=== PATIENT | female | born 1970 | race Caucasian/White ===

== ENCOUNTER → 2019-09-28 10:06 | Outpatient (CLI) | payer OTHER, SELFPAY ==
--- NOTE | ~2019-09-28 | MM_ITS ---
EXAMINATION: MM screening li BI w li HISTORY: Screening mammogram TECHNIQUE: Craniocaudal and mediolateral oblique 3-D tomosynthesis images were obtained and synthetic 2-D images were generated. CAD analysis was submitted and interpreted. COMPARISON: Comparison to multiple prior studies sequentially, with oldest reviewed study dated 11/2013. BREAST PARENCHYMAL COMPOSITION: There are scattered areas of fibroglandular density. FINDINGS: There is no evidence of suspicious mass, calcification, or architectural distortion to sugg est malignancy in either breast. There has been no suspicious interval change. IMPRESSION: 1. No mammographic evidence of malignancy. 2. Recommend routine screening mammography in one year. BI-RADS Category 1: Negative Reviewed, dictated and finalized at location A.
== END ==
PROVIDERS: Visit Provider Obstetrics & Gynecology
DX: Z12.31 Encounter for screening mammogram for malignant neoplasm of breast (principal)
CPT/HCPCS: 77063; 77067

== ENCOUNTER → 2020-09-29 15:46 | Outpatient (CLI) | payer BC, SELFPAY ==
--- NOTE | ~2020-09-29 | MM_ITS ---
EXAMINATION: MM screening li BI w li HISTORY: Screening TECHNIQUE: Craniocaudal and mediolateral oblique 3-D tomosynthesis images were obtained and synthetic 2-D images were generated. CAD analysis was submitted and interpreted. COMPARISON: 07/13/2014 BREAST PARENCHYMAL COMPOSITION: There are scattered areas of fibroglandular density. FINDINGS: There is no evidence of suspicious mass, calcification, or architectural distortion to sugg est malignancy in either breast. There has been no suspicious interval change. IMPRESSION: 1. No mammographic evidence of malignancy. 2. Recommend routine screening mammography in one year. BI-RADS Category 1: Negative Reviewed, dictated and finalized at location A.
== END ==
PROVIDERS: PCP Internal Medicine; Visit Provider Obstetrics & Gynecology
DX: Z12.31 Encounter for screening mammogram for malignant neoplasm of breast (principal)
CPT/HCPCS: 77063; 77067

== ENCOUNTER → 2021-11-17 15:40 | Outpatient (CLI) | payer BC, SELFPAY ==
--- NOTE | ~2021-11-17 | MM_ITS ---
EXAMINATION: MM screening li BI w li HISTORY: Screening mammogram TECHNIQUE: Craniocaudal and mediolateral oblique 3-D tomosynthesis images were obtained and synthetic 2-D images were generated. CAD analysis was submitted and interpreted. COMPARISON: 09/29/2020, 09/28/2019, 09/24/2018 bilateral screening mammogram examinations BREAST PARENCHYMAL COMPOSITION: There are scattered areas of fibroglandular density. FINDINGS: There is no evidence of suspicious mass, calcification, or architectural distortion to sugg est malignancy in either breast. There has been no suspicious interval change. IMPRESSION: 1. No mammographic evidence of malignancy. 2. Recommend routine screening mammography in one year. BI-RADS Category 1: Negative Reviewed, dictated and finalized at location A.
== END ==
PROVIDERS: PCP Obstetrics & Gynecology; Visit Provider Obstetrics & Gynecology
DX: Z12.31 Encounter for screening mammogram for malignant neoplasm of breast (principal)
CPT/HCPCS: 77063; 77067

== ENCOUNTER 2022-04-03 07:31 | Day surgery (SDC) | payer BC, SELFPAY ==
[2022-03-19 13:18] VITALS: BMI 36.6
[2022-04-03 07:44] VITALS: BP 156/73; PULSE 78; RESP 19; TEMP 36.3; O2SAT 96
--- NOTE | 2022-04-03 07:56 | PM.HPGS ---
History of Present Illness History of Present Illness Consent: Risks, benefits, and alternatives have been discussed and questions answered. Patient agrees to proceed with procedure. Chief complaint: Hx of Colon Polyp Narrative: Taylor Garcia is a 51 year old female Previously followed by Dr. Park. Patient presents for follow-up colonoscopy. Patient has a history of adenomatous colon polyps removed from the colon 2012. In 2016 patient had hyperplastic colon polyps. In 2019 had severe diverticulitis and partial colon resection accomplished at that time. Patient presents today for surveillance colonoscopy because of history of colon polyps. Patient reports that her current weight appetite and bowel movements are normal. Patient denies abdominal pain. She has had no bleeding. Family history Uncertain. Patient's mother may have had colon polyps. Review of Systems Review of Systems: Review of systems noncontributory. [facility] Past Medical History Medical History (Updated 04/03/22 @ 07:59 by Rahul Louis MD) Asthma GERD (gastroesophageal reflux disease) High cholesterol Hypertension Surgical History Surgical History (Updated 04/03/22 @ 07:59 by Rahul Louis MD) H/O colectomy sigmoid colectomy 2018 H/O: hysterectomy History of ankle surgery fusion October 2020 History of removal of ovarian cyst S/P thyroid biopsy thyroid nodule Tibia fracture fracture repair right tibia Family History Family History Father Family history of cardiovascular disease Malignant neoplasm of prostate Family history of emphysema Hypertension Mother Family history of cardiovascular disease Grandparent Family history of lung cancer Acute myocardial infarction Social History Social History Smoking packs per day: 1 Smoking cigarettes per day: 20.0 Years smoked: 20 Smoking pack-years: 20.00 Smoking status: Former smoker Tobacco type: cigarettes Smoking end date: 04/01/17 Alcohol intake: current Drinks per week: 5 Alcohol use details: socially Substance use type: does not use Living arrangements: with family 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: [employer] Spiritual care concerns: No Meds Home Medications and Allergies Home Medications Medication Instructions Recorded Confirmed Type albuterol sulfate 90 mcg/actuation 1 puff inhalation Q4H PRN 04/13/21 03/19/22 History aerosol inhaler (ProAir HFA) Shortness Of Breath Or Wheezing carvedilol 12.5 mg tablet 12.5 mg PO Q12H 04/13/21 03/19/22 History escitalopram oxalate 10 mg tablet 10 mg PO DAILY 04/13/21 03/19/22 History mecobalamin (vitamin B12) 1,000 1,000 mcg PO DAILY 04/13/21 03/19/22 History mcg chewable tablet Allergies Allergy/AdvReac Type Severity Reaction Status Date / Time Penicillins Allergy Unknown Skin Verified 04/03/22 07:43 irritation Vital Signs Vital Signs - 24 hr 04/03/22 07:44 Temperature 97.4 F L Pulse Rate 78 Respiratory Rate 19 Blood Pressure 156/73 H Pulse Oximetry 96 Oxygen Delivery Room Air Exam Narrative: Physical exam reveals patient to be alert. Vital signs stable. HEENT exam is unremarkable. Patient is anicteric. Lungs are clear to auscultation and percussion. Heart is without murmur or extra sounds. Abdomen bowel sounds are present soft nontender with no organomegaly. Digital external rectal exam is normal. Assessment and Plan Assessment and plan (1) History of colon polyps: Code(s): Z86.010 - Personal history of colonic polyps Status: Acute Assessment and Plan: Patient has a distant history of colon polyps 10 years ago. In the interval she has had colon resection for diverticulitis. Plan for surveillance colonoscopy now. Further recommendations will be given after endoscopy. She may b
[2022-04-03] MEDS: LACTATED RINGERS 1,000 ML 150 ML IV CONT (07:57)
--- NOTE | 2022-04-03 08:23 | WPDANESEPPF ---
Anes - Initial Pre Proc Eval Procedure: Operation Date: 04/03/22 09:00 Proposed Procedures p Screening Colonoscopy - Rahul Louis MD Date/Time: 04/03/22 08:23 Surgeon: Rahul Louis MD Pre Op Diagnosis: Hx of Colon Polyp Patient Data Age: 51 Gender: F Height: 1.57 m Weight: 86 kg Last Vital Signs Temp 97.4 F L 04/03/22 07:44 Pulse 78 04/03/22 07:44 Resp 19 04/03/22 07:44 BP 156/73 H 04/03/22 07:44 Pulse Ox 96 04/03/22 07:44 O2 Del Method Room Air 04/03/22 07:44 Allergies Allergy/AdvReac Type Severity Reaction Status Date / Time Penicillins Allergy Unknown Skin Verified 04/03/22 07:43 irritation Home Medications Medication Instructions Recorded Confirmed Type albuterol sulfate 90 mcg/actuation 1 puff inhalation Q4H PRN 04/13/21 03/19/22 History aerosol inhaler (ProAir HFA) Shortness Of Breath Or Wheezing carvedilol 12.5 mg tablet 12.5 mg PO Q12H 04/13/21 03/19/22 History escitalopram oxalate 10 mg tablet 10 mg PO DAILY 04/13/21 03/19/22 History mecobalamin (vitamin B12) 1,000 1,000 mcg PO DAILY 04/13/21 03/19/22 History mcg chewable tablet Patient hx anesthesia problems: none Family hx anesthesia problems: none Results Review: All pre-operative results and documents have been reviewed as part of the pre-operative evaluation. [facility] Past Medical History Medical History (Updated 04/03/22 @ 07:59 by Rahul Louis MD) Asthma GERD (gastroesophageal reflux disease) High cholesterol Hypertension Surgical History Surgical History (Updated 04/03/22 @ 07:59 by Rahul Louis MD) H/O colectomy sigmoid colectomy 2018 H/O: hysterectomy History of ankle surgery fusion October 2020 History of removal of ovarian cyst S/P thyroid biopsy thyroid nodule Tibia fracture fracture repair right tibia Family History Family History Father Family history of cardiovascular disease Malignant neoplasm of prostate Family history of emphysema Hypertension Mother Family history of cardiovascular disease Grandparent Family history of lung cancer Acute myocardial infarction Social History Social History Smoking packs per day: 1 Smoking cigarettes per day: 20.0 Years smoked: 20 Smoking pack-years: 20.00 Smoking status: Former smoker Tobacco type: cigarettes Smoking end date: 04/01/17 Alcohol intake: current Drinks per week: 5 Alcohol use details: socially Substance use type: does not use Living arrangements: with family 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 Informed Consent: The patient's anesthetic plan and its attendant risks and benefits were discussed with the patient/family/POA. Questions were solicited and answers provided to the satisfaction of the patient/family/POA.
[2022-04-03 09:18] VITALS: BP 103/55; PULSE 74; RESP 22; O2SAT 96
[2022-04-03 09:28] VITALS: BP 108/64; PULSE 69; RESP 21; O2SAT 96
[2022-04-03 09:38] VITALS: BP 125/68; PULSE 71; RESP 17; O2SAT 97
== END 2022-04-03 09:46 | disposition home or self-care (01) ==
PROVIDERS: PCP Internal Medicine; Referring Provider Obstetrics & Gynecology; Visit Provider Internal Medicine Gastroenterology
PROC: 0DJD8ZZ Inspection of Lower Intestinal Tract, Via Natural or Artificial Opening Endoscopic (ICD-10-PCS; CPT 45378; principal; 2022-04-03 09:00)
DX: Z12.11 Encounter for screening for malignant neoplasm of colon (principal); D12.2 Benign neoplasm of ascending colon; K64.8 Other hemorrhoids; K57.30 Diverticulosis of large intestine without perforation or abscess without bleeding; J45.909 Unspecified asthma, uncomplicated; I10 Essential (primary) hypertension; Z79.51 Long term (current) use of inhaled steroids; Z90.49 Acquired absence of other specified parts of digestive tract; Z87.891 Personal history of nicotine dependence; E66.9 Obesity, unspecified; Z68.34 Body mass index [BMI] 34.0-34.9, adult; Z87.19 Personal history of other diseases of the digestive system
CPT/HCPCS: 45380; 88305; J2704; J7120

== ENCOUNTER → 2023-01-02 15:14 | Outpatient (CLI) | payer BC, SELFPAY ==
--- NOTE | ~2023-01-02 | MM_ITS ---
EXAMINATION: MM screening [facility] BI w li HISTORY: Screening mammogram TECHNIQUE: Craniocaudal and mediolateral oblique 3-D tomosynthesis images were obtained and synthetic 2-D images were generated. CAD analysis was submitted and interpreted. COMPARISON: 11/17/2021, 09/29/2020, 09/28/2019 BREAST PARENCHYMAL COMPOSITION: There are scattered areas of fibroglandular density. FINDINGS: No suspicious mass, calcification, or architectural distortion are identified in either portia ast to suggest malignancy. There has been no suspicious interval change. IMPRESSION: 1. No mammographic evidence of malignancy. 2. Recommend routine screening mammography in one year. BI-RADS Category 1: Negative Reviewed, dictated and finalized at location A.
== END ==
PROVIDERS: PCP Obstetrics & Gynecology; Visit Provider Obstetrics & Gynecology
DX: Z12.31 Encounter for screening mammogram for malignant neoplasm of breast (principal)
CPT/HCPCS: 77063; 77067

== ENCOUNTER 2023-12-17 10:32 | Outpatient (CLI) | payer OTHER, SELFPAY ==
--- NOTE | ~2023-12-17 | CT_ITS ---
EXAMINATION: CT lung screening DATE: 12/17/2023 10:48 INDICATION: HX OF NICOTINE DEPENDENCE TECHNIQUE: Computed tomography (CT) of the chest was performed without intravenous contrast. Addition al 3D reconstructions utilizing coronal maximum intensity projection (MIP) were performed. Automated exposure control and iterative reconstruction technique were employed. The dose-length product was 10 3.27 mGy-cm. COMPARISON: None FINDINGS: There are few small calcified nodules at the bilateral lung bases along with calcified bilateral anel r and mediastinal lymph nodes consistent with old granulomatous disease. One-2 mm nodule, not clearly calcified at the right apex. No pneumonia, pulmonary edema, pleural effusion or pneumothorax. Heart size is normal. Small amount of atherosclerotic coronary artery calcific lesion. No pericardial effus ion. Thoracic aorta is normal in caliber. No pathologically enlarged thoracic lymphadenopathy. Likely benign subcentimeter calcified nodule at the right thyroid lobe. Mild upper thoracic levocurvature w ith mild spondylosis. 7.2 cm cyst in the right hepatic lobe. IMPRESSION: 1. Lung-RADS category 2: Benign appearance or behavior. Continue annual screening with noncontrast lo w-dose chest CT in 12 months. Reviewed, dictated and finalized at location B. IMPRESSION: 1. Lung-RADS category 2: Benign appearance or behavior. Continue annual screeni ng with noncontrast low-dose chest CT in 12 months.
== END 2023-12-17 10:33 | disposition home or self-care (01) ==
LOC: MICIMG 10:32
PROVIDERS: PCP Internal Medicine; Visit Provider Internal Medicine
DX: Z12.2 Encounter for screening for malignant neoplasm of respiratory organs (principal); Z87.891 Personal history of nicotine dependence
CPT/HCPCS: 71271

== ENCOUNTER 2024-02-29 08:27 | Outpatient (CLI) | payer OTHER, SELFPAY ==
--- NOTE | ~2024-02-29 | MM_ITS ---
EXAMINATION: MM screening li BI w li HISTORY: Screening TECHNIQUE: Craniocaudal and mediolateral oblique 3-D tomosynthesis images were obtained and synthetic 2-D images were generated. CAD analysis was submitted and interpreted. COMPARISON: Comparison to multiple prior studies sequentially, with oldest reviewed study dated 10/2017. BREAST PARENCHYMAL COMPOSITION: Not dense: There are scattered areas of fibroglandular density. FINDINGS: There is no evidence of suspicious mass, calcification, or architectural distortion to sugg est malignancy in either breast. There has been no suspicious interval change. IMPRESSION: 1. No mammographic evidence of malignancy. 2. Recommend routine screening mammography in one year. BI-RADS Category 1: Negative Reviewed, dictated and finalized at location [] [facility]
== END 2024-02-29 08:28 | disposition home or self-care (01) ==
LOC: MICIMG 08:28
PROVIDERS: PCP Obstetrics & Gynecology; Visit Provider Obstetrics & Gynecology
DX: Z12.31 Encounter for screening mammogram for malignant neoplasm of breast (principal)
CPT/HCPCS: 77063; 77067

== ENCOUNTER 2024-03-26 14:07 | Outpatient (CLI) | payer OTHER, SELFPAY ==
--- NOTE | ~2024-03-26 | XR_ITS ---
XR chest 2V Ordering provider: Marla Riggins MD History: 53 years Female with . dyspnea for 7 days . Comparison: None. FINDINGS: MEDIASTINUM: The cardiac silhouette is not enlarged. LUNGS: No infiltrates, effusions or pneumothorax. OTHER: No free air under the diaphragm. IMPRESSION: No acute cardiopulmonary pathology. Reviewed, dictated and finalized at location A. PER MAKER
[2024-03-26 14:29] LABS: Basophils Absolute Auto 0.09 K/mm3 (0.00-0.10); Basophils Percent Auto 0.9 % (0.0-1.0); Eosinophils Absolute Auto 0.22 K/mm3 (0.02-0.50); Eosinophils Percent Auto 2.2 % (1.0-6.0); Hematocrit 39.5 % (35.0-49.0); Hemoglobin 13.5 g/dL (12.0-15.0); Immature Granulocyte Absolute 0.03 K/mm3 (0.00-0.00); Immature Granulocyte Percent A 0.3 % (0.0-0.0); Lymphocytes Absolute Auto 2.83 K/mm3 (1.10-4.50); Lymphocytes Percent Auto 28.5 % (18.0-42.0); Mean Corpuscular HGB Conc 34.2 g/dL (32-36); Mean Corpuscular Hemoglobin 32.9 pg (27.0-31.0); Mean Corpuscular Volume 96.3 fL (78.0-102.0); Mean Platelet Volume 9.1 fl (9.2-11.8); Monocytes Absolute Auto 0.79 K/mm3 (0.10-0.90); Neutrophils Absolute Auto 5.96 K/mm3 (1.70-7.20); Neutrophils Percent Auto 60.1 % (50.0-70.0); Platelet Count Result 322 K/mm3 (150-420); Red Cell Distribution Width 13.2 % (11.6-14.4); White Blood Count 9.9 K/mm3 (4.8-10.8)
[2024-03-26 14:45] LABS: D Dimer 0.38 mg/L (0.19-0.50)
[2024-03-26 14:59] LABS: Chloride 94 mmol/L (98-108); Estimated Glomerular Filt Rate > 60; NT Pro B Type Natriuretic Pept < 5 pg/mL (0-125); Potassium 4.3 mmol/L (3.5-5.1); Sodium 139 mmol/L (136-145)
[2024-03-26 15:04] LABS: Anion Gap 12 mmol/L (4-12); Blood Urea Nitrogen 17 mg/dL (7-18); Calcium 10.4 mg/dL (8.5-10.1); Carbon Dioxide 33 mmol/L (21-32); Glucose 105 mg/dL (70-99); Osmolality Calculated 289 mOsm/kg (285-295)
== END 2024-03-26 14:08 | disposition home or self-care (01) ==
LOC: CHSLAB 14:10
PROVIDERS: PCP Internal Medicine; Visit Provider Internal Medicine
DX: R06.00 Dyspnea, unspecified (principal)
CPT/HCPCS: 36415; 71046; 80048; 83880; 85025; 85380

== ENCOUNTER 2024-04-07 10:11 | Outpatient (CLI) | payer OTHER, SELFPAY ==
--- OUTSIDE RECORDS SUMMARY | 2024-04-14 04:40 | XMS_ITS | Clinical Summary ---
Author Organization [facility] Address [address] [place] [address] Care Team Providers Care Liability Claims Representative Name Role Phone Marla Riggins MD Primary Care Provider [phone] [facility],non-owned Affiliates and Associated Physician Practices is amultiple site organization consisting of ambulatory clinics and hospital sitesin [place], [place], [place] and [place]. This disclosure is being madepursuant to the Care Everywhere program and may not contain all information available regarding this patient. Last updated 17.[facility] Allergies Active Allergy Reactions Criticality Noted Date Comments Penicillins Rash Medium 08/30/2016 Reaction: Rash, Medications * Be aware that medications may not be up to date on this document. Alwaysverify current medications with the patient. Medication Sig Dispensed Refills Start Date End Date Status escitalopram (LEXAPRO) 10 MG tablet Take 10 mg by mouth once daily Active losartan - hydroCHLOROthiazide (HYZAAR) 50-12.5 MG tablet Take 1 tablet by mouth once daily Active aspirin (ASPIRIN ADULT) 325 MG tablet Take 1 (one) tablet by mouth 2 times daily 60 tablet 11/03/2020 Active albuterol HFA (PROVENTIL;VENTOLIN;PROAI R) 108 (90 Base) MCG/ACT inhaler Inhale 2 puffs by mouth every 6 hours as needed 11/24/2020 Active carvedilol (COREG) 12.5 MG tablet Take 12.5 mg by mouth 2 times daily with morning and evening meal 12/30/2020 Active BREO ELLIPTA 100-25 MCG/INH inhaler Inhale 1 puff by mouth once daily 12/30/2020 Active Active Problems Problem Noted Date Diagnosed Date 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 ( we do not have access yet to the images or CT reports) Pt will send it to us . No indications for antibiotics currently Cellulitis 02/24/2018 Overview (07/20/2020): Last Assessment & Plan: Clinically resolved. No erythema or tennderness or skin lesions visible. She has had 2 courses of oral antibitoics She is at risk of recurrent cellulitis over the right LE in view of altered anatomy\ Advised preventative measures Monitor off antibiotics Transaminitis 02/24/2018 Overview (07/20/2020): Last Assessment & Plan: likley secondary to alcohol use. Advised to alert PMD and monitor Trigger finger of right thumb 02/28/2016 Trigger finger of left thumb 02/28/2016 Cubital tunnel syndrome 03/14/2015 Right leg pain Immunizations Name Administration Dates Next Due Covid Lucibel primary monoval ent 12+ yr 0.3mL Purple cap 07/04/2020,06/12/2020 Social History Tobacco Use Types Packs/Day Years Used Date Smoking Tobacco: Former Cigarettes 0 07/20/1992 - 07/20/2017 Smokeless Tobacco: Never Alcohol Use Standard Drinks/Week Comments Yes 21 (1 standard drink = 0.6 oz pu re alcohol) 3-4 drinks of Rum daily Sex and Gender Information Value Date Recorded Sex Assigned at Not on file Gender Identity Not on file Sexual Orientation Not on file Last Filed Vital Signs Vital Sign Reading Time Taken Comments Blood Pressure 127/89 11/05/2020 7:51 AM CDT Pulse 84 11/05/2020 7:51 AM CDT Temperature 36.6 ??C (97.8 ??F) 11/05/2020 7:51 AM CD T Respiratory Rate 20 11/05/2020 7:51 AM CDT Oxygen Saturation 97% 11/05/2020 7:51 AM CDT Inhaled Oxygen Concentration - - Weight 85.7 kg (189 lb) 01/31/2021 8:54 AM CDT Height 157.5 cm (5' 2 ) 11/21/2020 4:24 PM CDT Body Mass Index 34.57 11/21/2020 4:24 PM CDT Plan of Treatment Health Maintenance Due Date Last Done Comments COLOGUARD (AGES 45-75) - COL ON CA SCREENING 1968 COLON MONITORING 1968 COLONOSCOPY - COLON CA SCREENING 1968 CT COLONOGRAPHY - COLON CA SCREENING 1968 Colorectal Cancer Screening 1968 FIT - COLON CA SCREENING 1968 FLEX SIG - COLON CA SCREENING 1968 LIPID TESTING 1968 MAMMOGRAM 1968 PAP SMEAR 1968 HIV SCREENING 1983 HEPATITIS C SCREENING 05/25/1986 DTAP/TDAP/TD VACCINES (1 - Tdap) 1987 HEPATITIS B VACCINE (1 of 3 - 19+ 3-dose series) 1987 ZOSTER VACCINE (1 of 2) 2018 DEPRESSION SCREENING 04/01/2023 SCREENING FOR DIABETES 11/04/2023 , 11/02/2020 COVID-19 VACCINE (3 - 2023-2 5 season) 2023 07/04/2020, 06/12/2020 INFLUENZA VACCINE (#1) 2023 HIB VACCINE Aged Out No longer eligi ble based on patient's age to complete this topic HPV VACCINE Aged Out No longer eligi ble based on patient's age to complete this topic MENINGOCOCCAL VACCINE Aged Out No sergo xin eligible based on patient's age to complete this topic PNEUMOCOCCAL VACCINE Aged Out No long er eligible based on patient's age to complete this topic Goals Goal Patient Goal Type Associated Problems Recent Progress Patient-Stated? Author Mobility General Improving(05/2020 8:55 AM CDT) Keely Yanez RN Note: Expected end date: 03/31/21 The goal is to maintain or improve your mobility at the optimum level for you. Interventions: PT exercises Medical Devices Implanted Type Area Rotor Balancer Device Identifier Shelf Expiration Date Model / Serial / Lot Screw 6.5mm 7.9mm 2.9mm 85mm Ft Rvrs Cut Implanted:Qty: 1 on 11/02/2020 by Jeremy Frye DO at [facility] Right: Ankle [employer] [id number] / / Screw 6.5mm 7.9mm 2.9mm 70mm Ft Rvrs Cut Implanted:Qty: 1 on 11/02/2020 by Jeremy Frye DO at [facility] Right: Ankle [employer] [id number] / / Explanted Type Area Rotor Balancer Device Identifier Shelf Expiration Date Model / Serial / Lot Wire [id number] .062in 6in Fx 2 Troc Explanted:Qty: 2 on 11/02/2020 by Jeremy Frye DO at [facility] Right: Foot [employer] 07/25/2024 [id number] / / [id number] Screw 6.5mm 7.9mm 2.9mm 90mm Ft Rvrs Cut Explanted:Qty: 1 on 11/02/2020 by Jeremy Frye DO at [facility] Right: Ankle [employer] [id number] / / Procedures Procedure Name Priority Date/Time Associated Diagnosis Comments BASIC METABOLIC PANEL (CALCIUM TOTAL) AM Draw 11/03/2020 2:11 AM CDT Arthritis of right ankle from Last 3 Months or Most Recently Relevant to Health Maintenance Results * (ABNORMAL) BASIC METABOLIC PANEL (CALCIUM TOTAL) (11/03/2020 2:11 AM CDT) BUN 23 7 - 26 mg/dL 11/03/2020 3:30 AM CDT [facility] Creatinine 0.98(H) 0.56 - 0.96 mg/dL 11/03/2020 3:30 AM [facility] Comment:Confirmed by repeat analysis. Sodium 135(L) 136 - 145 mmol/L 11/03/2020 3:30 AM [facility] Potassium 4.4 3.5 - 4.5 mmol/L 11/03/2020 3:30 AM [facility] Chloride 98 98 - 107 mmol/L 11/03/2020 3:30 AM [facility] CO2 24 22 - 29 mmol/L 11/03/2020 3:30 AM [facility] Glucose 177(H) 70 - 115 mg/dL 11/03/2020 3:30 AM [facility] Calcium 8.6 8.4 - 10.2 mg/dL 11/03/2020 3:30 AM [facility] Anion Gap 17 8 - 18 11/03/2020 3:30 AM [facility] BUN/Creatinine Ratio 23 7 - 23 11/03/2020 3:30 AM [facility] Osmolality Calculated 288 270 - 300 mOsm/kg 11/03/2020 3:30 AM [facility] eGFR by CKD-EPI 66(L) >=90 mL/min/1.7 3 m2 11/03/2020 3:30 AM [facility] Blood BLOOD SPECIMEN / Unknown Lab Venipuncture / Unknown 11/03/2020 2:11 AM CDT 11/03/2020 2:45 AM CDT Jeremy Frye DO LAB - CHEMISTRY [facility] [address] [place] [address], [facility] [phone] from Last 3 Months or Most Recently Relevant to Health Maintenance Advance Directives * Full Code (Latest Code Status on File) Date Activated Date Inactivated Comments 11/02/2020 2:20 PM 11/05/2020 12:47 PM * Full Code Date Activated Date Inactivated Comments 11/02/2020 7:17 AM 11/02/2020 2:20 PM * Full Code Date Activated Date Inactivated Comments 11/02/2020 7:17 AM 11/02/2020 7:17 AM Care Teams Liability Claims Representative Relationship Specialty Start Date End Date Marla Riggins MD PCP - General Internal Medicine 08/15/20
--- OUTSIDE RECORDS SUMMARY | 2024-04-14 04:40 | XMS_ITS | Referral Summary ---
Author Organization [facility] Address [address] [place] [address] Care Team Providers Care Deck Worker Name Role Phone Marla Riggins MD Primary Care Provider [phone] Source Comments [facility],non-owned Affiliates and Associated Physician Practices is amultiple site organization consisting of ambulatory clinics and hospital sitesin [place], [place], [place] and [place]. This disclosure is being madepursuant to the Care Everywhere program and may not contain all information available regarding this patient. Last updated 17.[facility] Allergies Active Allergy Reactions Criticality Noted Date [...] Immunizations Name Administration Dates Next Due Covid SmartMenuCard primary monoval ent 12+ yr 0.3mL Purple [...] Mass Index 34.57 11/21/2020 4:24 PM CDT Functional Status Functional Status Response Date of Assess ment Is person deaf or have serious hearing difficult y? No 11/02/2020 Is person blind or have serious difficulty seein g? No 11/02/2020 Does person have serious dif ficulty walking/climbing stairs? No 11/02/2020 Does person have difficulty dressing/bathing? No 11/02/2020 Does person have difficulty doing errands alone? No 11/02/2020 Cognitive Status Response Date of Assessm ent Does person have difficulty concentrating/remembering/making decisions? No 11/02/2020 Plan of Treatment Not on file Goals Goal Patient Goal Type Associated Problems Recent Progress Patient-Stated? Author Mobility General Improving(05/2020 8:55 AM CDT) No Keely Cole RN Note: Expected end date: 03/31/21 The goal is to maintain or improve your mobility at the optimum level for you. Interventions: PT exercises Medical Devices Implanted Type Area Lumber Straightener Device Identifier Shelf Expiration Date Model / Serial / Lot Screw 6.5mm 7.9mm 2.9mm 85mm Ft Rvrs Cut Implanted:Qty: 1 on 11/02/2020 by Jeremy Frye, DO at [facility] Right: Ankle Synthes [employer] [id number] / / Screw 6.5mm 7.9mm 2.9mm 70mm Ft Rvrs Cut Implanted:Qty: 1 on 11/02/2020 by Jeremy Frye, DO at [facility] Right: Ankle [employer]ynthe[employer] [id number] / / Explanted Type Area Lumber Straightener Device Identifier Shelf Expiration Date Model / Serial / Lot Wire K .062in 6in Fx 2 Troc Explanted:Qty: 2 on 11/02/2020 by Jeremy Frye DO at [facility] Right: Foot [employer] 07/25/2024 [id number] / / [id number] Screw 6.5mm 7.9mm 2.9mm 90mm Ft Rvrs Cut Explanted:Qty: 1 on 11/02/2020 by Jeremy Frye DO at [facility] Right: Ankle Synthes [employer] [id number] / / Procedures Procedure Name Priority Date/Time Associated Diagnosis Comments BASIC METABOLIC PANEL (CALCIUM TOTAL) AM Draw 11/03/2020 2:11 AM CDT Arthritis of right ankle from Last 3 Months or Most Recently Relevant to Health Maintenance Results * (ABNORMAL) BASIC METABOLIC PANEL (CALCIUM TOTAL) (11/03/2020 2:11 AM CDT) BUN 23 7 - 26 mg/dL 11/03/2020 3:[address] [facility] Creatinine 0.98(H) 0.56 - 0.96 mg/dL 11/03/2020 3:[address] [facility] Comment:Confirmed by repeat analysis. Sodium 135(L) 136 - 145 mmol/L 11/03/2020 3:[address] [facility] Potassium 4.4 3.5 - 4.5 mmol/L 11/03/2020 3:[address] [facility] Chloride 98 98 - 107 mmol/L 11/03/2020 3:[address] [facility] CO2 24 22 - 29 mmol/L 11/03/2020 3:[address] [facility] Glucose 177(H) 70 - 115 mg/dL 11/03/2020 3:[address] [facility] Calcium 8.6 8.4 - 10.2 mg/dL 11/03/2020 3:[address] [facility] Anion Gap 17 8 - 18 11/03/2020 3:30 AM CDT [facility] BUN/Creatinine Ratio 23 7 - 23 11/03/2020 3:30 AM T [facility] Osmolality Calculated 288 270 - 300 mOsm/kg 11/03/2020 3:30 AM [facility] eGFR by CKD-EPI 66(L) >=90 mL/min/1.7 3 m2 11/03/2020 3:30 AM T [facility] Blood BLOOD SPECIMEN / Unknown Lab Venipuncture / Unknown 11/03/2020 2:11 AM CDT 11/03/2020 2:45 AM CDT Jeremy Frye DO LAB - CHEMISTRY ORDE [facility] [address] [place] [address], [facility] [phone] from Last 3 Months or Most Recently Relevant to Health Maintenance Advance Directives * Full Code (Latest Code Status on File) Date Activated Date Inactivated Comments 11/02/2020 2:20 PM 11/05/2020 12:47 PM * Full Code Date Activated Date Inactivated Comments 11/02/2020 7:17 AM 11/02/2020 2:20 PM * Full Code Date Activated Date Inactivated Comments 11/02/2020 7:17 AM 11/02/2020 7:17 AM Care Teams Deck Worker Relationship Specialty Start Date End Date Marla Riggins MD PCP - General Internal Medicine 08/15/20
--- OUTSIDE RECORDS SUMMARY | 2024-04-14 04:40 | XMS_ITS | Encounter Summary ---
Author Organization [facility] Address [address] [facility] [place] [address] Care Team Providers Care Equipment Manager Name Role Phone Marla Riggins MD Primary Care Provider [phone] Encounter Details Date Type Department Care Team (Late st Contact Info) Description 03/29/2021 Orders Only [facility] - Orthopedics [address] [facility] [place] [place] [address] Sandy Denise PA No Information available Arthralgia of right ankle Social History Tobacco Use Types Packs/Day Years [...] on file Sexual Orientation Not on file documented as of this encounter Functional Status Functional Status Response Date of [...] person have difficulty concentrating/remembering/making decisions? No 11/02/2020 documented as of this encounter Plan of Treatment Not on file documented as of this encounter Goals Goal Patient Goal Type Associated Problems Recent Progress Patient-Stated? Author Mobility General Improving(05/2020 8:55 AM CDT) Keely Yanez, RN Note: Expected end date: 03/31/21 The goal is to maintain or improve your mobility at the optimum level for you. Interventions: PT exercises documented as of this encounter Visit Diagnoses Diagnosis Arthralgia of right ankle- Primary Pain in joint, ankle and foot documented in this encounter Care Teams Equipment Manager Relationship Specialty Start Date End Date Marla Riggins MD PCP - General Internal Medicine 08/15/20 documented as of this encounter
--- OUTSIDE RECORDS SUMMARY | 2024-04-14 04:40 | XMS_ITS | Encounter Summary ---
Author Organization [facility] Address [address] [place] [address] Care Team Providers Care Firefighting Equipment Specialist Name Role Phone Marla Riggins MD Primary Care Provider [phone] Reason for Visit * Reason Comments Lower Extremity Problem right ankle fusi on post op Encounter Details Date Type Department Care Team (Late st Contact Info) Description 01/31/2021 8:45 AM CDT Office Visit [facility] - Orthopedics [address] [place] [id number] Sandy Denise PA No Information available S/P ankle fusion (Primary Dx); Post-traumatic osteoarthritis of right ankle Social History Tobacco Use [...] on file documented as of this encounter Last Filed Vital Signs Vital Sign Reading Time Taken Comments Blood Pressure - - Pulse - - Temperature - - Respiratory Rate - - Oxygen Saturation - - Inhaled Oxygen Concentration - - Weight 85.7 kg (189 lb) 01/31/2021 8:54 AM CDT Height - - Body Mass Index 34.57 11/21/2020 4:24 PM CDT documented in this encounter Functional Status Functional Status Response [...] No 11/02/2020 documented as of this encounter Patient Instructions * Patient Instructions* Sandy Denise PA - 01/31/2021 9:33 AM CDT Images from the original note were not included. - [email or web address] Orthopaedic Surgery Clinic Taylor Garcia 01/31/2021 Thank you for coming in to see us today. Work/School Excuse: Excused from Work/School on 01/31/21 DIAGNOSIS: S/P ankle fusion Post-traumatic osteoarthritis of right ankle Plan: We discussed and recommended conservative treatment and education which includes: continue to bear weight as tolerated. Use open back shoes for comfort with good support in the shoe. Contact our office if the wound/skin irritation persists. Follow up: 3 months Call or return to clinic prn if these symptoms worsen or fail to improve as anticipated. If approved to take by your primary care physician, NSAIDs (non-steroidal anti- inflammatory drugs) such as Aleve/naproxen and Motrin/ibuprofen are suggested to relieve inflammation and pain for a short course of therapy for 10 days, advised to take with food. If you develop any adverse side effectssuch as dysphasia, stomach pain, or changes in bladder, please discontinue the medication immediately. Please take the following to promote bone health: ?? Multivitamin 1 tablet daily ?? Vitamin D3 and Calcium as directed by your primary care provider. Cryotherapy is commonly used to reduce temperature, inflammation, pain, muscle spasm and symptoms of delayed onset muscle soreness. There are various methods of ice application such as ice pack, coldpack, cold water immersion, ice massage. You may apply ice to the affected area for 10 minutes at atime. To Find out more info about your diagnosis, visit: [email or web address].org/ Patient was educated and given information regarding their diagnosis today. [facility] Orthopaedic office contact information: Please contact our call center at , option #1 to make an appointment Our Locations: [facility] [address] [facility], [address], [place] [address] Please contact the MA at , if you have any further questions or concerns. [facility] [address] [place], [place] [id number] Please contact the office at if you have any further questions or concerns. Sincerely, JENNIFER Rosas PA-C [email or web address] documented in this encounter Progress Notes * Sandy Denise PA - 01/31/2021 9:02 AM CDT ESTABLISHED PATIENT VISIT Patient ID: Taylor Garcia is a 50 year old female. CHIEF COMPLAINT Right foot postoperative care HISTORY OF PRESENT ILLNESS: Patient is a 50 year old female who presents for return evaluation of right foot/ankle postoperatively. Patient was last seen on 01/03/21 for postoperative care with Dr. Frye. She underwent right subtalar fusion, ANTONIA, renita??11/02/[address] Frye. Overall she is doing well and feels improvement all the time. She has no pain. Her primary complaint is that the skin continues to break down and be irritated over the lateral foot incision. She states she cannot wear any shoe with a back on it because the skin starts to break down. She was advised to wear [place] shoes but she states it is too narrow for her foot. MEDICAL/SURGICAL/FAMILY/SOCIAL HISTORY-reviewed in chart REVIEW OF SYSTEMS - Constitutional: negative for fever, chills, night sweats PHYSICAL EXAM: Alert, oriented and cooperative. Mood and affect appropriate. Gait without deviation. Skin warm and dry. Standing posture erect without forward leaning or hyperlordosis. Respirations even unlabored. No cyanosis, clubbing or edema. RIGHT ANKLE EXAMINATION: Tenderness to palpation is Present over the middle aspect of the surgical incision; incision is well-healed but has an area of skin break down with a yellow crust; erythema is present with petechiae more consistent with friction, no erythema consistent with infection; no drainage, no would dehiscence Range of motion includes: Dorsiflexion 50 deg; Plantarflexion 25 deg; Inversion 20 deg; Eversion 10 deg. Swelling is Present generally about the entire ankle, mild in nature. Dorsiflexion strength is 5 out of 5. Plantarflexion strength is 5 out of 5. Inversion strength is 5 out of 5. Eversion strength is 5 out of 5. LOWER DERMATOMES Right: Anterior & Medial Thigh (L3) Intact Medial Leg & Ankle (L4) Intact Dorsal Foot & 1st Web Space (L5) Intact Lateral & Plantar Foot (S1) Intact Left: Anterior & Medial Thigh (L3) Intact Medial Leg & Ankle (L4) Intact Dorsal Foot & 1st Web Space (L5) Intact Lateral & Plantar Foot (S1) Intact SKIN: Inspection and palpation of the skin of the lower extremities without erythema, rashes, or lesions. VASCULAR: Bilateral lower extremities with no pallor or rubor, no visible edema, capillary refill brisk. PULMONARY: Unlabored respirations. IMAGING: Imaging of right ankle ordered today and reviewed by me revealing distal tibial intramedullary nail, partly imaged. Chronic fracture deformity of the distal tibia and fibula is redemonstrated with osseous fusion between the bones. The ankle joint space is maintained. There is subtalar arthrodesis with 2 screws. The screws are intact and the osseous alignment is unchanged. Osteopenia and soft tissue swelling are noted. ASSESSMENT: S/p right subtalar fusion, renita KNIGHT??11/02/20 Friction irritation over right foot incision TREATMENT PLAN: 50 year old female with significantly improved pain s/p right subtalar fusion, ICBG, renita??11/02/20. When wearing a closed-back shoe she is having irritation along the incision site. She was advisedto wear a sandal or clog for now while the skin calms down. She is otherwise doing extremely well. Return in 3 months. 1. Patient was counseled to the nature of the diagnosis and demonstrated understanding. All questions answered. 2. PT: start when patient ready (she declines right now) 3. Rx: none at this time 4. Injection: none 5. Lifting/Activity restrictions: none 6. Follow up in 3 months 7. Follow up Imaging: right ankle JENNIFER Rosas, PALarryC [facility] Orthopa[facility] Surgery Collaborative practice with Dr. Aldo Nowak, Dr. Vlad Quezada, and Dr. David Mancini. * Tiffani Marcus RN - 01/31/2021 8:55 AM CDT Chief Complaint: Chief Complaint Patient presents with ??? Lower Extremity Problem right ankle fusion post op Wt 85.7 kg (189 lb) BMI 34.57 kg/m2 documented in this encounter Plan of Treatment Not on file documented as of this encounter Goals Goal Patient Goal Type Associated Problems Recent Progress Patient-Stated? Author Mobility General Improving(05/2020 8:55 AM CDT) No Keely Cole, RN Note: Expected end date: 03/31/21 The goal is to maintain or improve your mobility at the optimum level for you. Interventions: PT exercises documented as of this encounter Visit Diagnoses Diagnosis S/P ankle fusion- Primary Other postprocedural status Post-traumatic osteoarthritis of right ankle documented in this encounter Care Teams Firefighting Equipment Specialist Relationship Specialty Start Date End Date Marla Riggins MD PCP - General Internal Medicine 08/15/20 documented as of this encounter
--- OUTSIDE RECORDS SUMMARY | 2024-04-14 04:40 | XMS_ITS | Encounter Summary ---
Author Organization [facility] Address [address] [place] [address] Care Team Providers Care Excavating Contractor Name Role Phone Marla Riggins MD Primary Care Provider [phone] Encounter Details Date Type Department Care Team (Late st Contact Info) Description 12/27/2020 Orders Only [facility] - Orthopedics [address] [facility] [place] [address] Jeremy Frye, [address] [place] [address] [address] [place] [address] Post-traumatic osteoarthritis of right ankle ; Arthritis of right subtalar joint Social History Tobacco Use Types Packs/Day Years [...] PT exercises documented as of this encounter Results * XR ANKLE RIGHT 3VW OR MORE (01/03/2021 9:02 AM CDT) Anatomical Region Laterality Modality Lower Extremity Radiographic Chetna ging 01/03/2021 9:28 AM CDT Impressions 01/03/2021 9:29 AM CDT IMPRESSION: Subtalar arthrodesis, unchanged in alignment. This report was electronically signed by FAUSTINO VALERO MD ??on 01/03/2021 9:29 AM . Narrative 01/03/2021 9:29 AM CDT Exam: ??XR ANKLE RIGHT 3VW History: ??M19.171: Post-traumatic osteoarthritis of right ankle M19.071: Arthritis of right subtalar joint Comparison: 12/19/2020 Findings: Tibial intramedullary nail, incompletely imaged. There are chronic distal tibial and fibular fractures, unchanged. There is subtalar arthrodesis with 2 screws. The screws are intact and the osseous alignment is unchanged. There is no dislocation. Mild soft tissue swelling is noted. Procedure Note Faustino Valero MD - 01/03/2021 Exam: XR ANKLE RIGHT 3VW History: M19.171: Post-traumatic osteoarthritis of right ankle M19.071: Arthritis of right subtalar joint Comparison: 12/19/2020 Findings: Tibial intramedullary nail, incompletely imaged. There are chronicdistal tibial and fibular fractures, unchanged. There is subtalar arthrodesis with 2 screws. The screws are intact and the osseous alignment is unchanged. There is no dislocation. Mild soft tissue swelling is noted. IMPRESSION: Subtalar arthrodesis, unchanged in alignment. This report was electronically signed by FAUSTINO VALERO MD on01/03/2021 9:29 AM . 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
--- OUTSIDE RECORDS SUMMARY | 2024-04-14 04:40 | XMS_ITS | Encounter Summary ---
Author Organization [facility] Address [address] [facility] [place] [address] Care Team Providers Care Security Coordinator Name Role Phone Marla Riggins MD Primary Care Provider [phone] Reason for Visit * Reason Comments Lower Extremity Problem Rt, F/U Encounter Details Date Type Department Care Team (Latest Contact Info) Description 01/03/2021 9:00 AM CDT Office Visit [facility] - Orthopedics [address] [place] [address], [place] [address] Jeremy Frye, [address] [place] [address] [address] [place] [address] Post-traumatic osteoarthritis of right ankle (Primary Dx); Arthritis of right subtalar joint Social History [...] this encounter Patient Instructions * Patient Instructions* Wilfrido Gaines IV, MD - 01/03/2021 9:24 AM CDT Diagnosis: ICD-10-CM 1. Post-traumatic osteoarthritis of right ankle M19.171 2. Arthritis of right subtalar joint M19.071 You were seen in clinic today for post op visit Your weight bearing (WB) status will be: WBAT in boot We recommend that you try the following for your injury: Hydrocortisone cream for rash Slowly transition to shoe with orthotic Physical therapy Prescriptions: none Please make a follow up appointment for 4 weeks Sandy PEREA Please call the clinic if you have any questions. [facility] Orthopaedic office contact information: [facility] [address] [place] [address] Thank you for allowing us to care for you today. Visit our website at [email or web address] for information about our practice and an interactive health encyclopedia. Please visit [email or web address] to access your health record, ask questions, request medication refills, and request appointments for non-urgent needs after you have configured your [facility] account. If you do not currently have access, please contact one of our staff members or call [phone]. documented in this encounter Progress Notes * Jeremy Frye DO - 01/04/2021 1:32 PM CDT I personally performed history and physical exam on this patient. I agree with the residents evaluation and treatment note. * Wilfrido Gaines IV, MD - 01/03/2021 9:23 AM CDT Orthopedic Foot & Ankle Surgery Clinic Note Taylor Garcia, 50 year old, female : 1970 CSN: [id number] Primary Care Physician: Marla Riggins MD Diagnosis/Procedures 1.) Patient is a??50 year old,??female??with right subtalar arthritis - s/p:??right subtalar fusion, ICBG, renita??11/02/[address] Frye Time since injury/surgery: 6.5 weeks HPI Date of this clinic visit: 01/03/2021 Patient is a 50 year old female who presents for post-op follow-up clinic appointment, regarding the above mentioned injury complex. Patient states that pain in their ankle is doing well. She denies any pain today. Has been 50% WB in boot. She has a rash on the bottom of her foot. She has had this rash before which was treated by manager administration with steroid cream. Denies new numbness/tingling. Objective not currently . PMHx Past Medical History: Diagnosis Date ??? Arthritis of subtalar joint ??? Essential hypertension PSHx Past Surgical History: Procedure Laterality Date ??? Arthrodesis Right 11/02/2020 Right; RIGHT SUBTALAR ARTHRODESIS ??? Hysterectomy ??? OOPHORECTOMY Bilateral 2018 Both ovaries removed in 2 separate surgeries, 2009, 2018 ??? SIGMOIDOSCOPY sigmoid colectomy 2018 Social Hx Social History Tobacco Use ??? Smoking status: Former Smoker Years: 25.00 Types: Cigarettes Quit date: 07/20/2017 Years since quittin.4 ??? Smokeless tobacco: Never Used Substance Use Topics ??? Alcohol use: Yes Alcohol/week: 21.0 standard drinks Types: 21 Shots of liquor per week Comment: 3-4 drinks of Rum daily Family Hx family history is not on file. Allergies Allergies Allergen Reactions ??? Penicillins Rash Reaction: Rash, Medications Current Outpatient Medications Medication ??? albuterol HFA (PROVENTIL;VENTOLIN;PROAIR) 108 (90 Base) MCG/ACT inhaler ??? amLODIPine (NORVASC) 10 MG tablet ??? aspirin (ASPIRIN ADULT) 325 MG tablet ??? BREO ELLIPTA 100-25 MCG/INH inhaler ??? carvedilol (COREG) 12.5 MG tablet ??? cyclobenzaprine (FLEXERIL) 10 MG tablet ??? docusate sodium (COLACE) 100 MG capsule ??? escitalopram (LEXAPRO) 10 MG tablet ??? losartan - hydroCHLOROthiazide (HYZAAR) 50-12.5 MG tablet ??? oxyCODONE-acetaminophen (PERCOCET) 10-325 MG tablet No current facility-administered medications for this visit. Review of Systems A 12 point review of systems was performed and was negative except for: what was mentioned in the HPI Physical Exam General: Alert, cooperative, in no acute distress. CV: RRR, distal pulses equal and symmetric Resp: no increased labor of breathing Musculoskeletal: Right lower extremity: -Appearance: surgical incision healing well with some eschar along vertical limb. ICBG site healed -Sensation: SILT in DP/SP/Sural/Saphenous/Tibial nerve distributions -Vascular: 2+ DP/ PT pulse with toes warm and well perfused Range of Motion: Dorsiflexion: neutral Plantar Flexion: 10 Muscle Strength: - Fires EHL/FHL/Gastroc/TA/ Peroneals Imaging - XR right ankle demonstrate subtalar screws intact and in place, unchanged from previous imaging. - Please see separate radiographic report for formal read by Radiology Assessment/Plan: Patient is a??50 year old,??female??with right subtalar arthritis - s/p:??right subtalar fusion, ICBG, renita??11/02/[address] Frye 1. Patient was counseled to the nature of their diagnosis and demonstrated understanding. Questionssolicited and answered. 2. WBAT in boot, transition out to shoe with orthotic 3. Prescriptions: PT, custom orthotic 4. Return to [facility] clinic in 4 weeks with views of right ankle 01/03/2021 9:23 AM * Jose Wolfe RN - 01/03/2021 8:52 AM CDT Here for post op F/U.-TS documented in this encounter Plan of Treatment [...] as of this encounter Visit Diagnoses Diagnosis Post-traumatic osteoarthritis of right ankle- Primary Arthritis of right subtalar joint documented in this encounter Care Teams Security Coordinator Relationship Specialty Start Date End Date Marla Riggins MD PCP - General Internal Medicine 08/15/20 documented as of this encounter
--- OUTSIDE RECORDS SUMMARY | 2024-04-14 04:40 | XMS_ITS | Encounter Summary ---
Author Organization [facility] Address [address] [place] [address] Care Team Providers Care Clinical Program Consultant Name Role Phone Marla Riggins MD Primary Care Provider [phone] Encounter Details Date Type Department Care Team (Latest Contact Info) Description 01/03/2021 8:57 AM CDT - 01/03/2021 11:59 PM CDT Hospital Encounter [facility] DIAGNOSTIC RAD [facility] [address] [facility] [address] Jeremy Frye, DO [address] [facility] [address] [place] [address] Discharge Disposition: Home or Self Care Social History Tobacco Use Types Packs/Day Years [...] No 11/02/2020 documented as of this encounter Medications at Time of Discharge Medication Sig Dispensed Refills Start Date End Date albuterol HFA (PROVENTIL;VENTOLIN;PROAIR) 108 (90 Base) MCG/ACT inhaler Inhale 2 puffs by mouth every 6 hours as needed 11/24/2020 aspirin (ASPIRIN ADULT) 325 MG tablet Take 1 (one) tablet by mouth 2 times daily 60 tablet 11/03/2020 BREO ELLIPTA 100-25 MCG/INH inhaler Inhale 1 puff by mouth once daily 12/30/2020 carvedilol (COREG) 12.5 MG tablet Take 12.5 mg by mouth 2 times daily with morning and evening meal 12/30/2020 escitalopram (LEXAPRO) 10 MG tablet Take 10 mg by mouth once daily losartan - hydroCHLOROthiazide (HYZAAR) 50-12.5 MG tablet Take 1 tablet by mouth once daily amLODIPine (NORVASC) 10 MG tablet Take 10 mg by mouth once daily 01/31/2021 cyclobenzaprine (FLEXERIL) 10 MG tablet Take 1 (one) tablet by mouth 3 times daily as needed 45 tablet 11/02/2020 01/31/2021 docusate sodium (COLACE) 100 MG capsule Take 1 (one) capsule by mouth once daily 30 capsule 11/02/2020 01/31/2021 oxyCODONE-acetaminophen (PERCOCET) 10-325 MG tablet Take 1 (one) tablet by mouth every 4 hours as needed 45 tablet 11/02/2020 01/31/2021 documented as of this encounter Plan of [...] PT exercises documented as of this encounter Procedures Procedure Name Priority Date/Time Associated Diagnosis Comments XR ANKLE RIGHT 3VW OR MORE Routine 01/03/2021 9:02 AM CDT Post-traumatic osteoarthritis of right ankle Arthritis of right subtalar joint documented in this encounter Results * XR ANKLE RIGHT [...] Visit Diagnoses Diagnosis Post-traumatic osteoarthritis of right ankle Arthritis of right subtalar joint documented in this encounter Care Teams Clinical Program Consultant Relationship Specialty Start Date End Date Marla Riggins MD PCP - General Internal Medicine 08/15/20 documented as of this encounter
--- OUTSIDE RECORDS SUMMARY | 2024-04-14 04:40 | XMS_ITS | Encounter Summary ---
Author Organization [facility] Address [address] [address] Care Team Providers Care Biomedical Specialist Name Role Phone Marla Riggins MD Primary Care Provider [phone] Encounter Details Date Type Department Care Team (Late st Contact Info) Description 01/31/2021 8:35 AM CDT - 01/31/2021 11:59 PM CDT Hospital Encounter [facility] DIAGNOSTIC RAD [facility] [address] [place] [id number] Sandy Denise PA No Information available Discharge Disposition: Home or Self Care Social [...] Take 1 tablet by mouth once daily documented as of this encounter Plan of [...] XR ANKLE RIGHT 3VW OR MORE Routine 01/31/2021 8:50 AM CDT Arthralgia of right ankle documented in this encounter Results * XR ANKLE RIGHT 3VW OR MORE (01/31/2021 8:50 AM CDT) Anatomical Region Laterality Modality Lower Extremity Radiographic Chetna ging 01/31/2021 8:58 AM CDT Impressions 01/31/2021 8:59 AM CDT IMPRESSION: Subtalar arthrodesis, unchanged. This report was electronically signed by FAUSTINO VALERO MD ??on 01/31/2021 8:59 AM . Narrative 01/31/2021 8:59 AM CDT Exam: ??XR ANKLE RIGHT 3VW History: ??M25.571: Arthralgia of right ankle Comparison: 01/03/2021 Findings: Distal tibial intramedullary nail, partly imaged. Chronic fracture deformity of the distal tibia and fibula is redemonstrated with osseous fusion between the bones. The ankle joint space is maintained. There is subtalar arthrodesis with 2 screws. The screws are intact and the osseous alignment is unchanged. Osteopenia and soft tissue swelling are noted. Procedure Note Faustino Valero MD - 01/31/2021 Exam: XR ANKLE RIGHT 3VW History: M25.571: Arthralgia of right ankle Comparison: 01/03/2021 Findings: Distal tibial intramedullary nail, partly imaged. Chronic fracture deformity of the distal tibia and fibula is redemonstrated with osseous fusion between the bones. The ankle joint space is maintained. There is subtalar arthrodesis with 2 screws. The screws are intact and theosseous alignment is unchanged. Osteopenia and soft tissue swelling are noted. IMPRESSION: Subtalar arthrodesis, unchanged. This report was electronically signed by FAUSTINO VALERO MD on01/31/2021 8:59 AM . Sandy [facility] documented in this encounter Visit Diagnoses Diagnosis Arthralgia of right ankle Pain in joint, ankle and foot documented in this encounter Care Teams Biomedical Specialist Relationship Specialty Start Date End Date Marla Riggins MD PCP - General Internal Medicine 08/15/20 documented as of this encounter
--- OUTSIDE RECORDS SUMMARY | 2024-04-14 04:40 | XMS_ITS | Patient Health Summary ---
Author Organization [facility] Address [address] [place] [address] Care Team Providers Care Pattern Grader Supervisor Name Role Phone Marla Riggins MD Primary Care Provider [phone] Note from [facility],non-owned Affiliates and Associated Physician Practices is amultiple site organization consisting of ambulatory clinics and hospital sitesin [place], [place], [place] and [place]. This disclosure is being madepursuant to the Care Everywhere program and may not contain all information available regarding this patient. Last updated 17.[facility] Allergies * Penicillins(Rash) -Medium Criticality Medications * Be aware that medications may not be up to date on this document. Alwaysverify current medications with the patient. * escitalopram (LEXAPRO) 10 MG tablet Take 10 mg by mouth once daily * losartan - hydroCHLOROthiazide (HYZAAR) 50-12.5 MG tablet Take 1 tablet by mouth once daily * aspirin (ASPIRIN ADULT) 325 MG tablet(Started 11/03/2020) Take 1 (one) tablet by mouth 2 times daily * albuterol HFA (PROVENTIL;VENTOLIN;PROAIR) 108 (90 Base) MCG/ACT inhaler (Started 11/24/2020) Inhale 2 puffs by mouth every 6 hours as needed * carvedilol (COREG) 12.5 MG tablet(Started 12/30/2020) Take 12.5 mg by mouth 2 times daily with morning and evening meal * BREO ELLIPTA 100-25 MCG/INH inhaler(Started 12/30/2020) Inhale 1 puff by mouth once daily Active Problems Problem Noted Date Diagnosed Date Post-traumatic osteoarthritis of right ankle Arthritis of right subtalar joint 11/02/2020 Osteomyelitis of right tibia 02/24/2018 Cellulitis 02/24/2018 Transaminitis 02/24/2018 Trigger finger of right thumb 02/28/2016 Trigger finger of left thumb 02/28/2016 Cubital tunnel syndrome 03/14/2015 Right leg pain Immunizations * Covid Pfizer primary monovalent 12+ yr 0.3mL Purple cap(Given 07/04/2020, 06/12/2020) Social History Tobacco Use Types Packs/Day Years [...] Mass Index 34.57 11/21/2020 4:24 PM CDT Medical Devices Implanted Type Area Attacher Device Identifier Shelf Expiration Date Model / Serial / Lot Screw 6.5mm 7.9mm 2.9mm 85mm Ft Rvrs Cut Implanted:Qty: 1 on 11/02/2020 by Jeremy Frye DO at [facility] Right: Ankle [employer] [id number] / / Screw 6.5mm 7.9mm 2.9mm 70mm Ft Rvrs Cut Implanted:Qty: 1 on 11/02/2020 by Jeremy Frye DO at [facility] Right: Ankle [employer] [facility] [id number] / / Explanted Type Area Attacher Device Identifier Shelf Expiration Date Model / Serial / Lot Wire [id number] .062in 6in Fx 2 Troc Explanted:Qty: 2 on 11/02/2020 by Jeremy Frye DO at [facility] Right: Foot [employer] 07/25/2024 [id number] / / [id number] Screw 6.5mm 7.9mm 2.9mm 90mm Ft Rvrs Cut Explanted:Qty: 1 on 11/02/2020 by Jeremy Frye DO at [facility] Right: Ankle [employer] [id number] / / Procedures * XR ANKLE RIGHT 3VW OR MORE(Performed 01/31/2021) Performed for Arthralgia of right ankle * XR ANKLE RIGHT 3VW OR MORE(Performed 01/03/2021) Performed for Post-traumatic osteoarthritis of right ankle, Arthritis of right subtalar joint * XR ANKLE RIGHT 3VW OR MORE(Performed 12/19/2020) Performed for Arthritis of right subtalar joint * XR ANKLE RIGHT 3VW OR MORE(Performed 11/21/2020) Performed for Post-traumatic osteoarthritis of right ankle * CBC W/O DIFFERENTIAL(Performed 11/05/2020) Performed for Arthritis of right ankle * CBC W/O DIFFERENTIAL(Performed 11/04/2020) Performed for Arthritis of right ankle * CBC W/O DIFFERENTIAL(Performed 11/03/2020) Performed for Arthritis of right ankle * BASIC METABOLIC PANEL (CALCIUM TOTAL)(Performed 11/03/2020) Performed for Arthritis of right ankle * BLOOD TYPE VERIFICATION(Performed 11/02/2020) * TYPE + SCREEN PANEL(Performed 11/02/2020) * XR ANKLE RIGHT 3VW OR MORE(Performed 11/02/2020) Performed for Arthritis of right ankle * PERIPHERAL BLOCK(Performed 11/02/2020) * FL DIAMANTE SURGERY(Performed 11/02/2020) Performed for Transaminitis * ARTHRODESIS/FUSION TARSOMETATARSAL (FOOT)(Performed 11/02/2020) Performed for Arthritis of right subtalar joint * ENDOTRACHEAL TUBE NOTE(Performed 11/02/2020) * BLOOD TYPE VERIFICATION(Performed 11/02/2020) * TYPE + SCREEN PANEL(Performed 11/02/2020) * PT-INR [facility](Performed 11/02/2020) Performed for Trigger finger of right thumb * CBC W AUTO DIFFERENTIAL(Performed 11/02/2020) Performed for Trigger finger of right thumb * BASIC METABOLIC PANEL (CALCIUM TOTAL)(Performed 11/02/2020) Performed for Trigger finger of right thumb * XR ANKLE RIGHT 3VW OR MORE(Performed 07/20/2020) Performed for Right ankle pain, unspecified chronicity Results * XR ANKLE RIGHT 3VW OR MORE (01/31/2021 8:50 AM CDT) Only the most recent of6 resultswithin the time period is included. Anatomical Region Laterality Modality Lower Extremity Radiographic [...] . Sandy [facility] * (ABNORMAL) CBC W/O DIFFERENTIAL (11/05/2020 1:23 AM T) Only the most recent of3 resultswithin the time period is included. WBC 10.9(H) 3.5 - 10.5 10? 3 /uL 11/05/2020 1:[address] [facility] RBC 3.31(L) 3.80 - 5.20 10? 6 /uL 11/05/2020 1:[address] [facility] Hemoglobin 10.3(L) 12.0 - 15.6 g/dL 11/05/2020 1:[address] [facility] Hematocrit 31.7(L) 35.0 - 45.0 % 11/05/2020 1:[address] [facility] MCV 95.8 80.7 - 98.3 fL 11/05/2020 1:[address] [facility] MCH 31.1 26.7 - 34.0 pg 11/05/2020 1:[address] [facility] MCHC 32.5 30.8 - 35.9 g/dL 11/05/2020 1:[address] [facility] Platelet Count 174 150 - 400 10? 3 /uL 11/05/2020 1:[address] [facility] RDW-SD 45.2 36.0 - 50.0 fL 11/05/2020 1:[address] [facility] RDW-CV 12.9 11.2 - 14.8 % 11/05/2020 1:[address] [facility] MPV 10.2 9.4 - 12.9 fL 11/05/2020 1:[address] [facility] nRBC Absolute 0.00 0 10? 3 /uL 11/05/2020 1:[address] [facility] nRBC Auto 0.0 0 /100 WBC 11/05/2020 1:[address] [facility] Blood BLOOD SPECIMEN / Unknown Lab Venipuncture / Unknown 11/05/2020 1:23 AM CDT 11/05/2020 1:36 AM CDT Jeremy Frye DO LAB - HEMATOLOGY ORD ERABLES [facility] [address] [place] [address], [facility] [phone] * (ABNORMAL) BASIC METABOLIC PANEL (CALCIUM TOTAL) (11/03/2020 2:11 AM CDT) Only the most recent of2 resultswithin the time period is included. BUN 23 7 - 26 mg/dL 11/03/2020 3:[address] [facility] Creatinine 0.98(H) 0.56 - 0.96 mg/dL 11/03/2020 3:[address] [facility] Comment:Confirmed by repeat analysis. Sodium 135(L) 136 - 145 mmol/L 11/03/2020 3:[address] [facility] Potassium 4.4 3.5 - 4.5 mmol/L 11/03/2020 3:[address] [facility] Chloride 98 98 - 107 mmol/L 11/03/2020 3:[address] [facility] CO2 24 22 - 29 mmol/L 11/03/2020 3:[address] [facility] Glucose 177(H) 70 - 115 mg/dL 11/03/2020 3:[address] [facility] Calcium 8.6 8.4 - 10.2 mg/dL 11/03/2020 3:[address] [facility] Anion Gap 17 8 - 18 11/03/2020 3:[address] [facility] BUN/Creatinine Ratio 23 7 - 23 11/03/2020 3:[address] [facility] Osmolality Calculated 288 270 - 300 mOsm/kg 11/03/2020 3:[address] [facility] eGFR by CKD-EPI 66(L) >=90 mL/min/1.7 3 m2 11/03/2020 3:30 AM CDT [facility] Blood BLOOD SPECIMEN / Unknown Lab Venipuncture / Unknown 11/03/2020 2:11 AM CDT 11/03/2020 2:45 AM CDT Jeremy Frye DO LAB - CHEMISTRY KATIA MATHEW [facility] [address] [place] [address], [place] [phone] * BLOOD TYPE VERIFICATION (11/02/2020 9:50 PM CDT) Only the most recent of2 resultswithin the time period is included. ABO Rh O NEG 11/02/2020 10:37 PM CDT [facility] Blood Bank BLOOD SPECIMEN / Unknown Lab Venipuncture / Unknown 11/02/2020 9:50 PM CDT 11/02/2020 9:54 PM CDT Jeremy Frye DO LAB - BLOOD BANK ORD ERABLES [facility] [address] [place] [address], [place] [phone] * TYPE + SCREEN PANEL (11/02/2020 6:51 PM CDT) Only the most recent of2 resultswithin the time period is included. Antibody Screen NEG 8:09 PM CDT [facility] ABO Rh O NEG 11/02/2020 8:09 PM CDT [facility] Blood Bank BLOOD SPECIMEN / Unknown Lab Venipuncture / Unknown 11/02/2020 6:51 PM CDT 11/02/2020 7:29 PM CDT Jeremy Frye DO LAB - BLOOD BANK ORD ERABLES [facility] [address] [place] [address], [place] [phone] * Peripheral Nerve Block (11/02/2020 3:22 PM CDT) Narrative Dwaine Chen MD - 11/02/2020 3:22 PM CDT Dwaine Chen MD ? 11/02/2020 ??3:25 PM Peripheral ??Nerve Block ?? Procedure: Peripheral Nerve Block Patient Location: ??PACU Preprocedure Section: ?? Indications: at surgeon's request and postop pain management. Pre-anesthetic Checklist: Patient identified, IV Checked, Site examined and clear, Risks and benefits discussed, Surgical consent verified, Monitors and equipment, Time-out performed, Informed consent obtained, Pre-op evaluation done, Questions answered/anesthesia questions answered, Allergies reviewed and Removal hand/wrist jewelry Monitors: BP, Pulse Ox and EKG. Patient Condition: ??sedated, meaningful contact maintained throughout procedure Patient Position: supine Patient Sedated? ??No Procedure Section ?? Laterality: right Block Performed: ??popliteal Prep: ??Chloraprep Strerile Field: gloves Skin localized with: lidocaine (XYLOCAINE) 1 % injection, 1 mL Needle Type: ??Echogenic insultaed Needle Gauge: ??21 Needle Length: ??90 mm Needle Depth: ??4 cm Ultrasound Guided? ?? Yes ? Technique: ??in plane ? Visualization: ??Preliminary scan performed, Important anatomical structures identified, Needle tip visualized throughout the procedure, Target identified, No intraneural or intravascular puncture occurred, Ultrasound image in chart, Local visualized surrounding nerve on ultrasound and Hydrodissection utilized Injection was made incrementally with constant monitoring and aspirations every 5 mL's Injection Assessment: ?? Slow fractionated injection Block Agents or Additives used? Yes Block agents used: bupivacaine PF (MARCAINE PF) 0.25 % injection, 20 mL Procedure Tolerance: tolerated well Procedure Start Time: 11/02/2020 2:54 PM. Procedure End Time: 11/02/2020 2:57 PM. Procedure Total Time: 3 ??minutes. Staff Section ?? Anesthesia Provider: Jonathan Freeman DO, Performed the procedure Provider #1: Dwaine Chen MD. Additional Comments: Procedure was performed for post operative right lower leg pain. I was present for and supervised the entire procedure. Dwaine Chen MD 11/02/2020 3:25 PM . José Miguel Quinteros MD GENERAL ANESTHESIA O RDERABLES * [facility] SURGERY (11/02/2020 2:30 PM CDT) Narrative [facility] - 11/02/2020 2:32 PM CDT Fluoroscopy was used for this exam in the OR. Please see the Operative report. Jeremy Jessica Frye DO FLUOROSCOPY ORDERABL ES [facility] * ETT LINE PERFORMABLE (11/02/2020 9:46 AM CDT) Narrative Mary Zeng Anes Asst - 11/02/2020 9:46 AM CDT Mary Zeng Anes Asst ? 11/02/2020 ??9:47 AM Endotracheal Tube Placement: ? Patient Location: OR. Intubation Event Date/Time: ??11/02/2020 9:22 AM Procedure: intubation (67984). Procedure Section: ?? Sedation: under general anesthesia. Indications for Airway Management: ??anesthesia Procedure pretreatments used? ??No Induction: standard IV Patient Position: ??sniffing Mask Ventilation: easy. Blade Type: Pardo Blade Size: 2 Laryngoscopy View: grade 1 (full cords) Intubation Adjuncts: stylet Nasal Airway Size: 7 Tube: endotracheal tube Placement: oral Tube type: cuff - inflated Tube Size (FR): 7 Depth of Insertion (CM): 21 Measured From: teeth Cuff Inflated With: air Number of Attempts: 1. Placement Verified By: direct visualization CXR Findings: ETT in proper place. Tube secured with: ??adhesive tape and ETT mays. Dentition unchanged? ??Yes Difficult Airway? ??No. Procedure Start Time: 11/02/2020 9:22 AM. Staff Section ?? Anesthesia Provider: Mary Zeng Anes Asst, Performed the procedure José Miguel Quinteros MD GENERAL ANESTHESIA O RDERABLES * PT-INR [facility] (11/02/2020 7:58 AM CDT) PT 12.2 12.1 - 14.8 Seconds 11/02/2020 8:22 AM CDT [facility] INR 0.9 See Comment 11/02/2020 8:22 AM CDT [facility] Comment:The suggested therap eutic range for standard coumadin (warfarin) therapy is an INR of 2.0-3.0. For high-risk patients (Mechanical Mitral Valve Prosthesis, etc.), the suggested prophylactic therapeutic range is an INR of 2.5-3.5. Blood BLOOD SPECIMEN / Unknown Venipuncture / Unknown 11/02/2020 7:58 AM CDT 11/02/2020 8:07 AM CDT José Miguel Quinteros MD LAB - COAGULATION OR DERABLES [facility] [address] [place] [address], [facility] [phone] * (ABNORMAL) CBC W AUTO DIFFERENTIAL (11/02/2020 7:58 AM CDT) WBC 5.5 3.5 - 10.5 10? 3 /uL 11/02/2020 8:[address] [facility] RBC 4.82 3.80 - 5.20 10? 6 /uL 11/02/2020 8:[address] [facility] Hemoglobin 14.4 12.0 - 15.6 g/dL 11/02/2020 8:[address] [facility] Hematocrit 44.0 35.0 - 45.0 % 11/02/2020 8:[address] [facility] MCV 91.3 80.7 - 98.3 fL 11/02/2020 8:[address] [facility] MCH 29.9 26.7 - 34.0 pg 11/02/2020 8:[address] [facility] MCHC 32.7 30.8 - 35.9 g/dL 11/02/2020 8:[address] [facility] Platelet Count 355 150 - 400 10? 3 /uL 11/02/2020 8:[address] [facility] RDW-SD 41.1 36.0 - 50.0 fL 11/02/2020 8:[address] [facility] RDW-CV 12.4 11.2 - 14.8 % 11/02/2020 8:[address] [facility] MPV 9.2(L) 9.4 - 12.9 fL 11/02/2020 8:[address] [facility] nRBC Absolute 0.00 0 10? 3 /uL 11/02/2020 8:[address] [facility] nRBC Auto 0.0 0 /100 WBC 11/02/2020 8:[address] [facility] Neutrophils % 49.8 35.0 - 70.0 % 11/02/2020 8:[address] [facility] Lymphocytes % 37.2 20.0 - 43.0 % 11/02/2020 8:[address] [facility] Monocytes % 7.4 5.0 - 13.0 % 11/02/2020 8:[address] [facility] Eosinophils % 3.4 0.0 - 6.0 % 11/02/2020 8:[address] [facility] Basophil % 1.5 0.0 - 2.0 % 11/02/2020 8:[address] [facility] Neutrophils Absolute 2.7 1.6 - 7.0 10? 3 /uL 11/02/2020 8:[address] [facility] Lymphocyte Absolute 2.1 1.1 - 3.9 10? 3 /uL 11/02/2020 8:[address] [facility] Monocytes Absolute 0.41 0.26 - 1.07 10? 3 /uL 11/02/2020 8:[address] [facility] Eosinophils Absolute 0.19 0.00 - 0.47 10? 3 /uL 11/02/2020 8:[address] [facility] Basophils Absolute 0.08 0.00 - 0.08 10? 3 /uL 11/02/2020 8:[address] [facility] Immature Granulocytes % 0.7 0.0 - 1.0 % 11/02/2020 8:[address] [facility] Immature Granulocytes Absolute 0.04 11/02/2020 8:[address] [facility] Blood BLOOD SPECIMEN / Unknown Venipuncture / Unknown 11/02/2020 7:58 AM CDT 11/02/2020 8:09 AM T José Miguel Quinteros MD LAB - HEMATOLOGY ORD ERABLES [facility] [address] [place] [address], [facility] [phone] Care Teams Pattern Grader Supervisor Relationship Specialty Start Date End Date Marla Riggins MD PCP - General Internal Medicine 08/15/20
--- OUTSIDE RECORDS SUMMARY | 2024-04-14 04:40 | XMS_ITS | Encounter Summary ---
Author Organization [facility] Address [address] [place] [address] Care Team Providers Care Special Education Paraprofessional Name Role Phone Marla Riggins MD Primary Care Provider [phone] Encounter Details Date Type Department Care Team (Late st Contact Info) Description 01/31/2021 Orders Only [facility] - Orthopedics [address] [facility], [facility] [place] [address] Sandy Denise PA No Information [...] AM . Sandy [facility] documented in this encounter Visit Diagnoses Diagnosis Arthralgia of right ankle- Primary Pain in joint, ankle and foot Arthralgia of right ankle Pain in joint, ankle and foot documented in this encounter Care Teams Special Education Paraprofessional Relationship Specialty Start Date End Date Marla Riggins MD PCP - General Internal Medicine 08/15/20 documented as of this encounter
--- OUTSIDE RECORDS SUMMARY | 2024-04-14 04:41 | XMS_ITS | Encounter Summary ---
Author Organization [facility] Address [address] [place] [address] Care Team Providers Care Product Sales Engineer Name Role Phone Marla Riggins MD Primary Care Provider [phone] Encounter Details Date Type Department Care Team (Latest Contact Info) Description 12/19/2020 8:35 AM CDT - 12/19/2020 11:59 PM CDT Hospital Encounter [facility]STIC [facility] [address] [facility] [place] [address] Jeremy Frye, DO [address] [facility] [address] [place] [address] Discharge Disposition: Home or Self [...] mouth 2 times daily 60 tablet 11/03/2020 escitalopram (LEXAPRO) 10 MG tablet Take 10 [...] hours as needed 45 tablet 11/02/2020 01/31/2021 sulfamethoxazole-trimethopr im (BACTRIM DS; SEPTRA DS) 800-160 MG tablet Take 1 (one) tablet by mouth 2 times daily for 7 days 14 tablet 12/15/2020 12/22/2020 documented as of this encounter Plan of [...] XR ANKLE RIGHT 3VW OR MORE Routine 12/19/2020 8:42 AM CDT Arthritis of right subtalar joint documented in this encounter Results * XR ANKLE RIGHT 3VW OR MORE (12/19/2020 8:42 AM CDT) Anatomical Region Laterality Modality Lower Extremity Radiographic Chetna ging 12/19/2020 10:0 1 AM CDT Impressions 12/19/2020 10:02 AM CDT IMPRESSION: Postsurgical changes. Unchanged alignment. This report was electronically signed by FAUSTINO VALERO MD ??on 12/19/2020 10:02 AM . Narrative 12/19/2020 10:02 AM CDT Exam: ??XR ANKLE RIGHT 3VW History: ??M19.071: Arthritis of right subtalar joint Comparison: 11/21/2020 Findings: Status post subtalar arthrodesis with 2 screws. The screws are intact and the osseous alignment is unchanged. A tibial intramedullary nail is partly imaged; the visualized portion is intact. There are chronic fractures of the distal tibia and fibula. The ankle joint space is normal. A few small spurs are seen around the ankle. There is mild soft tissue swelling. Procedure Note Faustino Valero MD - 12/19/2020 Exam: XR ANKLE RIGHT 3VW History: M19.071: Arthritis of right subtalar joint Comparison: 11/21/2020 Findings: Status post subtalar arthrodesis with 2 screws. The screws are intactand the osseous alignment is unchanged. A tibial intramedullary nail ispartly imaged; the visualized portion is intact. There are chronic fractures of the distal tibia and fibula. The ankle joint space is normal. A fewsmall spurs are seen around the ankle. There is mild soft tissue swelling. IMPRESSION: Postsurgical changes. Unchanged alignment. This report was electronically signed by FAUSTINO VALERO MD on12/19/2020 10:02 AM . Jeremy Frye DO DIAGNOSTIC IMAGING O RDERABLES documented in this encounter Visit Diagnoses Diagnosis Arthritis of right subtalar joint documented in this encounter Care Teams Product Sales Engineer Relationship Specialty Start Date End Date Marla Riggins MD PCP - General Internal Medicine 08/15/20 documented as of this encounter
--- OUTSIDE RECORDS SUMMARY | 2024-04-14 04:41 | XMS_ITS | Encounter Summary ---
Author Organization [facility] Address [address] [place] [address] Care Team Providers Care Card Feeder Name Role Phone Marla Riggins MD Primary Care Provider [phone] Reason for Visit * Auth/Cert Specialty Diagnoses / Procedures Referred By Asmita t Referred To Contact Diagnoses Arthritis of right subtalar joint ARTHRITIS OF RIGHT SUBTALAR JOINT Procedures ARTHRODESIS/FUSION TARSOMETATARSAL (FOOT) Referral ID Status Reason Start Date Expiration Date Visits Re quested Visits Authorized [id number] 1 1 Encounter Details Date Type Department Care Team (Late st Contact Info) Description 11/02/2020 9:11 AM CDT Anesthesia Event [facility] [address] [place] [id number] José Miguel Quinteros MD [address] [facility] [place] [address] Anesthesia Record Procedure Summary Procedure Name Responsible Anesthesiologist Anesthesia Start Time Anesthesia Stop Time RIGHT SUBTALAR ARTHRODESIS (Right) José Miguel Quinteros MD 11/02/20 0911 11/02/20 1424 Events Date Time Event Comment 11/02/2020 0823 0911 An Start 0912 Pt In Room 0915 An Start Data 0916 Anes Timeout 0916 PT Reassessment 0919 Induction 0922 An Intubation 0935 Anes Ready 1014 Time Out Anesthesia part icipated in timeout at the time documented in the record by nursing 1016 Proc Start 1031 An Tourn Inflated Pressure: 250mmHg right thigh 1131 An Tourn Deflated Total Tour niquet Time ( in minutes): 60 1215 An Tourn Inflated Pressure: mmHg 1340 An Tourn Deflated Total Tour niquet Time ( in minutes): 1350 Proc Stop 1414 An Emergence 1414 Extubation 1414 an stop data 1415 Pt out of Room 1415 ANPTO2 1424 An Stop Meds Name Total ceFAZolin 2,000 mg IVPB 4 g midazolam 2 mg/2mL injection 2 mg fentaNYL 100 mcg/2ml injection 200 mcg lidocaine PF 2% 80 mg propofol 200mg/20mL injection 100 mg rocuronium 50 mg/5 mL injection 100 mg phenylephrine 100 mcg/mL syringe 700 mcg dexamethasone 10 mg/ml PF injection 6 mg famotidine 20 mg/2mL injection 20 mg ondansetron 4mg/2mL injection 4 mg hydromorphone 2 mg/10mL prefilled syring e 1 mg sugammadex 200 mg/2mL injection 200 mg propofol 500 mg/50 mL 986.7 mg lidocaine (XYLOCAINE) 1 % injection 1 mL bupivacaine PF (MARCAINE PF) 0.25 % inje ction 20 mL LR (Lactated ringers) 1,000 mL * Agents Name Insp. N2O Exp. Sevoflurane Exp. N2O O2 Air Insp. Sevoflurane * Blood No blood administrations on file. Lines, Drains, and Airways Type Details Placement Removal Drain 11/02/20; 1219; Dr. frye; 1; Round; Accordian; 10fr; Bard; CWS 400 Closed Wound Suction Kit; [id number]; [id number]; Right; Hip; General Anesthesia 11/02/20 1219 by Dasia Easton RN Drain 11/02/20; 1309; Alaina santoro MD; 2; Accordian; 10fr; Bard; CWS 400 Closed Wound Suction Kit; [id number]; [id number]; Right; Ankle; General Anesthesia 11/02/20 1309 by Marilin Cortes RN Peripheral IV Date: 11/02/20; Time : 0802; Orientation: Left; Placed By: GIOVANNY Reyna 11/02/20 0802 by Maribell Shi RN 11/03/20 0941 by Alicia Stallworth RN ETT Date: 11/02/20; Time : 921; Placed By: Eufemia Wolf; Vent: easy mask; Induction: Standard IV; Blade Type: Pardo; Blade Size: 2; Laryngoscopy View: Grade 1 (full cords); Intubation Adjuncts: Stylet; Tube: Endotracheal Tube; Placement: Oral; Tube Type: Cuffed-inflated; Tube Size(FR): 7 FR; Depth of Insertion: 21 CM; Measured From: teeth; Attempts: 1; Cuff Infated: Air; Verified By: Direct visualization 11/02/20 09 by José Miguel Quinteros MD 11/02/20 1414 by Mary Zeng Anes Asst Peripheral IV Date: 11/02/20; Time : 923; Orientation: Left; Placed By: Mary Zeng CAA 11/02/20 0924 by Mary Zeng Anes Asst 11/03/20 0000 by Alicia Stallworth RN Urethral Catheter 11/02/20; 0930; Marilin BALTAZAR; Temperature probe; No; 16; 10 mL; Yes, Seal Intact; General Anesthesia; 11/02/20; 1412; Per protocol; Marilin BALTAZAR 11/02/20 0930 by Marilin Cortes RN 11/02/20 1412 by Marilin Cortes, GIOVANNY Procedural Site (Incision) 11/02/20; 1332; Right; Leg; xeroform, tegaderm, 4x4, cotton bulk, splint bias, tape; 11/05/20; 1742 11/02/20 1332 by Marilin Cortes RN 11/05/20 1742 by Generic, Auto Release Procedural Site (Incision) 11/02/20; 1332; Right; Flank; xeroform, 4x4, tegaderm; 11/05/20; 1742 11/02/20 1332 by Marilin Cortes RN 11/05/20 1742 by Generic, Auto Release documented in this encounter Social History Tobacco Use Types Packs/Day Years [...] on file Sexual Orientation Not on file COVID-19 Exposure Response Date Recorded In the last month, have you been in contact with someone who was confirmed or suspected to have Coronavirus / COVID-19? 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 * José Miguel Quinteros MD - 10/31/2020 8:09 AM CDT ANESTHESIA PREOPERATIVE EVALUATION NOTE Procedure: RIGHT SUBTALAR ARTHRODESIS (Right ) Vitals: Patient Vitals for the past 6 hrs: BP Temp Pulse Resp SpO2 10/31/20 0805 116/73 97.6 ??F (36.4 ??C) 96 18 98 % ANESTHESIA PRE-EVALUATION NOTE History of Present Illness: 50 year old female with right subtalar arthritis. She is scheduled for right subtalar arthrodesis with Dr. Frye. Medical history is significant for trigger finger, cubital tunnel, cellulitis and newly diagnosed hypertension. Received [employer] vaccine Allergies: Penicillins ?? The patient is a current non-smoker. Physical Exam: Orientation X3 Airway/Mallampati Score: II Mouth Opening Distance: 3 fingerwidths Neck ROM: full TM Distance: > 3 FB Teeth: normal Heart: normal - S1 S2 Lungs: clear to ausculation bilaterally Abdomen Exam: obese and soft Physical Exam Additional Comments: Right ankle edema Review of Systems: History of anesthetic complications: No Malignant Hyperthermia: No GERD: No Poor Exercise Tolerance: No Recent Chest Pain: No Shortness of Breath: No AICD/Pacemaker: No Renal Disease: No Other Findings: 07/20/20- XR right ankle - IMPRESSION: Healed distal tibial and fibular fractures with tibial intramedullary nail. ANESTHESIA PLAN ASA Score: 2 NPO Status: No solids since midnight and No liquids within 2 hours Anesthesia Plan: general Planned Induction: intravenous Planned Postop Destination: PACU Anesthetic plan was discussed with: patient, spouse The patient's procedural Anesthetic Plan was discussed with the post production assistant and ELECTRONIC IMAGING SYSTEM OPERATOR. Attending Note: I have reviewed the chart. I have interviewed (as appropriate) and examined the patient. I agree with the documentation and have discussed the anesthesia plan w/ the Resident, ELECTRONIC IMAGING SYSTEM OPERATOR, or AA. The patient agreed (if able) with the plan and accepted the risks and benefits. I attest to documenting, updating or reviewing the patient's medications using all immediate resources on the date of the encounter. This list included ALL known prescriptions, sohx-kxz-azyqzler, herbals, and vitamin/mineral/dietary (nutritional) supplements AND contained the medications' name, dosages, frequency, and route of administration. Patient presents today for ORIF ankle. Will proceed with GA via OETT. Additional labs and access asindicated. José Miguel Quinteros M.D. BMI, Height, Weight Tobacco History Estimated body mass index is 34.9 kg/m?? as calculated from the following: Height as of this encounter: 1.575 m (5' 2 ). Weight as of this encounter: 86.5 kg (190 lb 12.8 oz). Social History Tobacco Use Smoking Status Former Smoker ??? Types: Cigarettes ??? Quit date: 07/20/2017 ??? Years since quittin.2 Smokeless Tobacco Never Used Alcohol History Drug History Social History Substance and Sexual Activity Alcohol Use None Social History Substance and Sexual Activity Drug Use Not on file Outpatient Medications: Inpatient Medications: No outpatient medications have been marked as taking for the 10/31/20 encounter (Hospital Encounter) with [facility]OM 1. No current facility-administered medications for this encounter. Allergies: Allergies Allergen Reactions ??? Penicillins Rash Reaction: Rash, Relevant Problems No relevant active problems Problem List: Hospital Problem List None Non-Hospital Problem List Trigger finger of right thumb Trigger finger of left thumb Osteomyelitis of right tibia Cubital tunnel syndrome Cellulitis Transaminitis Medical History: No past medical history on file. Surgical History: No past surgical history on file. Covid Vaccine: Lab Results: PAT Evaluation summary: I. Perioperative Cardiac Risk Index Stratification based on 2014 ACC/AHA Guidelines Perioperative risk of a Major Adverse Cardiac Event (MACE). Add one point (0-6) for each positive RCRI (Revised Cardiac Risk Index) Is the surgery high-risk? no Intraperitoneal Intrathoracic Major vascular Neurosurgical spine or craniotomy History of ischemic heart disease? no Recent LA with 60 days = very high risk of MACE, requires cardiac consultation History of LA > 60 days History of positive stress test Current chest pain considered due to myocardial ischemia Use of nitrate therapy ECG with pathologic Q waves History of congestive heart failure? no Pulmonary edema, bilateral rales or S3 gallop Paroxysmal nocturnal dyspnea CXR showing pulmonary vascular congestion History of cerebrovascular disease? no Prior TIA or stroke Carotid bruit on exam? no Copy and paste any recent carotid duplex results here Insulin-dependent Diabetes? no Preoperative creatinine > 2 mg/dl? no RCRI correlation with MACE ([email or web address], originally validated by [employer]. 1999;100:8174-3754) 0 Points - 0.4% risk 1 Point - 0.9% risk 2 Points - 6.6% risk 3 or more Points - 11% risk This patient has 0 RCRI and the risk of MACE= 0.4 % I II. Consults: Cardiology / medicine/ other risk stratification or consults requested: Medical clearance per surgeon- in epic media. Medically optimized for surgery- Marla Riggins MDD 10/28/20 III. CIEDs (cardiovascular implantable electronic device) Patient does not have any CIEDs IV. Anticoagulants Is patient receiving antiplatelet/ anticoagulant medications. no V. Previous transfusions / blood products If high risk procedure or risk of blood loss > 250 ml, then order: - 1st Type and Screen in PAT AND 2nd Type and Screen for DOS OR - If patient is not seen in PAT then order a T&S for DOS (We will need an additional re-type which blood bank will automatically send to [facility] requires a 2nd confirmatory T&S before releasing crossmatched blood) Previous blood transfusion? no - If patient had a previous transfusion and likelihood of surgical blood loss is >250ml or a high risk procedure, then every attempt should be made to obtain a T&S in PAT, otherwise patient should be instructed to arrive early or not scheduled as a first start case. Please call hadoop software engineer to discuss plan and document here: Patients with previous transfusions may have developed alloantibodies to donor RBC surface antigens, which may cause hemolytic or delayed hemolytic transfusion reactions upon subsequent exposure to donor PRBCs. . Most recent EKG VII. Additional testing needed within 1 month prior to DOS (if possible, else on DOS) - CBC w/o diff if ASA >2 OR expected blood loss >250 OR previously abnormal - BMP is ASA >2 OR taking diuretics, K+ supplements, DAVID-I, ARBs OR any RCRI (including high risk procedure) - for patients with DM, refer to PCP or backend java developer for BG >200 - CMP (instead of BMP) for patient with chronic liver disease or previously abnormal -PT/ PTT/ INR if recent use of anticoagulants (VKAs, DTIs, fXa-I) OR vascular procedures Additional testing needed on DOS as below: - EPOC blood glucose on DOS - EPOC whole blood K+ for patient with ESRD or poorly controlled K+ - any test above not previously available in PAT Any additional tests ordered by the surgical team: no Summary: Taylor Garcia is a 50 year old female presenting for RIGHT SUBTALAR ARTHRODESIS (Right ). They have an ASA score of ASA 2 and 0 RCRI, which correlates with a MACE score of 0.4%. She is medically optimized for this procedure. Labs/ tests ordered for DOS:none Preoperative plan was not discussed w/ PAT attending. To be discussed DOS in holding PAT evaluation is complete including review of all pending consults, CIEDs, review of labs ordered in PAT. documented in this encounter Procedure Notes * Dwaine Chen MD - 11/02/2020 3:22 PM CDTAssociated Order(s): Peripheral Nerve Block Peripheral Nerve Block Procedure: Peripheral Nerve Block Patient Location: PACU Preprocedure Section: Indications: at surgeon's request and postop pain management. Pre-anesthetic Checklist: Patient identified, IV Checked, Site examined and clear, Risks and benefits discussed, Surgical consent verified, Monitors and equipment, Time-out performed, Informed consent obtained, Pre-op evaluation done, Questions answered/anesthesia questions answered, Allergies reviewed and Removal hand/wrist jewelry Monitors: BP, Pulse Ox and EKG. Patient Condition: sedated, meaningful contact maintained throughout procedure Patient Position: supine Patient Sedated? No Procedure Section Laterality: right Block Performed: popliteal Prep: Chloraprep Strerile Field: gloves Skin localized with: lidocaine (XYLOCAINE) 1 % injection, 1 mL Needle Type: Echogenic insultaed Needle Gauge: 21 Needle Length: 90 mm Needle Depth: 4 cm Ultrasound Guided? Yes Technique: in plane Visualization: Preliminary scan performed, Important anatomical structures identified, Needle tip visualized throughout the procedure, Target identified, No intraneural or intravascular puncture occurred, Ultrasound image in chart, Local visualized surrounding nerve on ultrasound and Hydrodissection utilized Injection was made incrementally with constant monitoring and aspirations every 5 mL's Injection Assessment: Slow fractionated injection Block Agents or Additives used? Yes Block agents used: bupivacaine PF (MARCAINE PF) 0.25 % injection, 20 mL Procedure Tolerance: tolerated well Procedure Start Time: 11/02/2020 2:54 PM. Procedure End Time: 11/02/2020 2:57 PM. Procedure Total Time: 3 minutes. Staff Section Anesthesia Provider: Jonathan Freeman DO, Performed the procedure Provider #1: Dwaine Chen MD. Additional Comments: Procedure was performed for post operative right lower leg pain. I was presentfor and supervised the entire procedure. Dwaine Chen MD 11/02/2020 3:25 PM . * Mary Zeng Anes Asst - 11/02/2020 9:46 AM CDTAssociated Order(s): ETT Placement Endotracheal Tube Placement: Patient Location: OR. Intubation Event Date/Time: 11/02/2020 9:22 AM Procedure: intubation (67031). Procedure Section: Sedation: under general anesthesia. Indications for Airway Management: anesthesia Procedure pretreatments used? No Induction: standard IV Patient Position: sniffing Mask Ventilation: easy. Blade Type: Pardo Blade [...] ETT in proper place. Tube secured with: adhesive tape and ETT mays. Dentition unchanged? Yes Difficult Airway? No. Procedure Start Time: 11/02/2020 9:22 AM. 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] Pre-op Meds (From admission, onward) Start Stop Status Route Frequency Ordered 11/02/20 0930 0.9% NaCl infusion -- Dispensed IV CONTINUOUS 11/02/20 0848 11/02/20 1420 acetaminophen (Tylenol) tablet 500 mg -- Sent PO EVERY 6 HOURS PRN 11/02/20 1420 11/04/20 0900 amLODIPine (Norvasc) tablet 10 mg -- Sent PO DAILY 11/02/20 1420 11/03/20 0900 aspirin tablet 325 mg -- Sent PO 2 TIMES DAILY 11/02/20 1420 11/02/20 1230 bupivacaine 0.25% Select A-flow single catheter 270 ml infusion Note to Pharmacy: Wants fixed rate at 7ml per hour 11/06 122 Dispensed IJ CONTINUOUS 11/02/20 1229 11/02/20 1217 bupivacaine PF (Marcaine PF) 0.5 % injection -- Sent PRN 11/02/20 1218 11/02/20 1420 calcium carbonate (Tums) chew tablet 1 tablet -- Sent PO EVERY 2 HOURS PRN 11/02/20 1420 11/02/20 0939 ceFAZolin (Ancef) 2,000 mg in 50 ml IVPB -- Sent IV PRN 11/02/20 0945 11/02/20 0730 ceFAZolin (Ancef) syringe 2,000 mg 11/02 192 Verified IV PRE-OP ONCE 11/02/20 0717 11/02/20 1430 ceFAZolin (Ancef) syringe 2,000 mg 11/03 142 Sent IV EVERY 8 HOURS 11/02/20 1420 11/02/20 1420 cyclobenzaprine (Flexeril) tablet 10 mg -- Sent PO 3 TIMES DAILY PRN 11/02/20 1420 11/02/20 0946 dexAMETHasone Sod Phosphate PF injection -- Sent IV PRN 11/02/20 1000 11/02/20 1420 diphenhydrAMINE (Benadryl) capsule 25 mg -- Sent PO EVERY 6 HOURS PRN 11/02/20 1420 11/02/20 1430 docusate sodium (Colace) capsule 100 mg -- Sent PO DAILY 11/02/20 1420 11/03/20 0900 escitalopram (Lexapro) tablet 10 mg -- Sent PO DAILY 11/02/20 1420 11/02/20 0946 famotidine (Pepcid) injection -- Sent IV PRN 11/02/20 1000 11/02/20 0919 fentaNYL (PF) (Sublimaze) injection -- Sent IV PRN 11/02/20 0921 11/04/20 0900 hydroCHLOROthiazide (Hydrodiuril) tablet 12.5 mg -- Sent PO DAILY 11/02/20 1420 11/02/20 1430 HYDROmorphone (Dilaudid) 0.2 mg/ml SCRUBBER SYSTEM ATTENDANT 11/03 2028 Sent IV SCRUBBER SYSTEM ATTENDANT 11/02/20 1420 11/02/20 1300 HYDROmorphone HCl-NaCl 2-0.9 MG/10ML-% SOSY -- Sent IV PRN 11/02/20 1305 11/02/20 0904 lactated ringers infusion -- Sent IV CONTINUOUS PRN 11/02/20 0906 11/02/20 0919 lidocaine hcl (PF) (Xylocaine MPF) 2 % injection -- Sent IV PRN 11/02/20 0920 11/04/20 0900 losartan (Cozaar) tablet 50 mg -- Sent PO DAILY 11/02/20 1420 11/02/20 0911 midazolam (Versed) injection -- Sent IV PRN 11/02/20 0940 11/02/20 1420 naloxone (Narcan) 0.4 mg in 0.9% NaCl 10 mL injection -- Verified IV PRN 11/02/20 1420 11/02/20 1420 ondansetron (Zofran) injection 4 mg -- Sent IV EVERY 6 HOURS PRN 11/02/20 1420 11/02/20 1326 Ondansetron HCl (Zofran) injection -- Sent IV PRN 11/02/20 1326 11/02/20 1420 oxyCODONE-acetaminophen (Percocet) 10-325 MG tablet 1 tablet -- Sent PO EVERY 4 HOURS PRN 11/02/20 1420 11/02/20 1420 oxyCODONE-acetaminophen (Percocet) 5-325 MG tablet 1 tablet -- Sent PO EVERY 4 HOURS PRN 11/02/20 1420 11/02/20 0924 phenylephrine 100 mcg/mL injection -- Sent IV PRN 11/02/20 0924 11/02/20 1430 polyethylene glycol 3350 (Miralax) packet 17 g -- Sent PO DAILY 11/02/20 1420 11/02/20 0939 propofol (Diprivan) infusion -- Sent IV CONTINUOUS PRN 11/02/20 1017 11/02/20 0919 propofol (Diprivan) injection -- Sent IV PRN 11/02/20 0921 11/02/20 0921 rocuronium (Zemuron) injection -- Sent IV PRN 11/02/20 0921 11/02/20 1346 sugammadex (Bridion) injection -- Sent IV PRN 11/02/20 1346 Post-op Diagnosis: * 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 Allergies Allergen Reactions ??? Penicillins Rash Reaction: Rash, Vitals: No data found. Lines, Drains, and Airways Type Details Placement Removal Peripheral IV Date: 11/02/20; Time: 801; Orientation: Left; Location: Antecubital; Placed By: GIOVANNY Reyna; Gauge: 18 Gauge 11/02/20801 by Maribell Shi RN ETT Date: 11/02/20; Time: 921; Placed By: Eufemia Wolf; Vent: easy mask; Induction: Standard IV; Blade Type: Pardo; Blade Size: 2; Laryngoscopy View: Grade 1 (full cords); Intubation Adjuncts: Stylet; Tube: Endotracheal Tube; Placement: Oral; Tube Type: Cuffed-inflated; Tube Size(FR): 7 FR; Depth of Insertion: 21 CM; Measured From: teeth; Attempts: 1; Cuff Infated: Air; Verified By: Direct visualization 11/02/20921 by José Miguel Quinteros MD 11/02/20 141 by Mary Zeng Anes Asst Peripheral IV Date: 11/02/20; Time: 923; Orientation: Left; Location: Arm; Placed By: Mary Zeng CAA; Gauge: 20 Gauge 11/02/20 09 by Mary Zeng Anes Asst Drain 11/02/20; 1219; Dr. frye; 1; Round; Accordian; 10fr; Bard; CWS 400 Closed Wound Suction Kit; [id number]; [id number]; Right; Hip; General Anesthesia 11/02/20 1219 by Dasia Easton RN Drain 11/02/20; 1309; MD Uday; 2; Accordian; 10fr; Bard; CWS 400 Closed Wound Suction Kit; [id number]; [id number]; Right; Ankle; General Anesthesia 11/02/20 1309 by Marilin Cortes RN Intraprocedure I/O Totals Intake LR (Lactated ringers) 1000.00 mL Total Intake 1000 mL Patient Transfer Location: PACU Transport Airway: spontaneous respirations and supplemental O2 Transport Monitoring: heart rate and continuous pulse oximetry Complications: None Handoff Given? Yes Checklist or Protocol - The varghese handoff elements that must be included in the transfer of care checklist include: 1. Identification of patient. 2. Identification of responsible practitioner (PACU nurse or advanced practitioner). 3. Discussion of pertinent medical history. 4. Discussion of the surgical/procedure course (procedure, reason for surgery, procedure performed). 5. Intraoperative anesthetic management and issue/concerns. 6. Expectations/Plans for the early post-procedure period. 7. Opportunity for questions and acknowledgement of understanding of report from the receiving PACUteam. Eufemia Wolf documented in this encounter Plan of Treatment [...] Procedure Name Priority Date/Time Associated Diagnosis Comments PERIPHERAL BLOCK Routine 11/02/2020 3:22 PM CDT ENDOTRACHEAL TUBE NOTE Routine 11/02/2020 9:46 AM CDT documented in this encounter Results * Peripheral Nerve Block (11/02/2020 3:22 PM [...] José Miguel Quinteros MD GENERAL ANESTHESIA O CLEMENT * ETT LINE PERFORMABLE (11/02/2020 9:46 AM CDT) Narrative Mary Zeng Anes Asst - 11/02/2020 9:46 AM CDT Mary Zeng Anes Asst ? 11/02/2020 ??9:47 AM Endotracheal Tube Placement: ? Patient Location: OR. Intubation Event Date/Time: ??11/02/2020 9:22 AM Procedure: intubation (47269). Procedure Section: ?? Sedation: under general anesthesia. [...] José Miguel Quinteros MD GENERAL ANESTHESIA O CLEMENT documented in this encounter Visit Diagnoses Not on filedocumented in this encounter Administered Medications Inactive Administered Medications - up to 3 most recent administrations Medication Order MAR Action Action Date Dose Rate Site bupivacaine PF (Marcaine PF) 0.25 % injection Infiltration, Starting on Sat11/02/20 at 1522, Until Sat11/02/20 at 1525, Anesthesia Intra-op $ Given 11/02/2020 3:22 PM CDT 20 mL ceFAZolin (Ancef) 2,000 mg in 50 ml IVPB Intravenous, PRN, Starting on Sat11/02/20 at 0939, Until Sat11/02/20 at 1424, Anesthesia Intra-op $ Given 11/02/2020 12:56 PM CDT 2 g $ Given 11/02/2020 9:39 AM CDT 2 g dexAMETHasone Sod Phosphate PF injection Intravenous, PRN, Starting on Sat11/02/20 at 0946, Until Sat11/02/20 at 1424, Anesthesia Intra-op $ Given 11/02/2020 9:46 AM CDT 6 mg famotidine (Pepcid) injection Intravenous, PRN, Starting on Sat11/02/20 at 0946, Until Sat11/02/20 at 1424, Anesthesia Intra-op $ Given 11/02/2020 9:46 AM CDT 20 mg fentaNYL (PF) (Sublimaze) injection Intravenous, PRN, Starting on Sat11/02/20 at 0919, Until Sat11/02/20 at 1424, Anesthesia Intra-op $ Given 11/02/2020 12:28 PM CDT 50 mcg $ Given 11/02/2020 11:26 AM CDT 50 mcg $ Given 11/02/2020 10:15 AM CDT 50 mcg HYDROmorphone HCl-NaCl 2-0.9 MG/10ML-% SOSY Intravenous, PRN, Starting on Sat11/02/20 at 1300, Until Sat11/02/20 at 1424, Anesthesia Intra-op $ Given 11/02/2020 2:20 PM CDT 0.5 mg $ Given 11/02/2020 1:00 PM CDT 0.5 mg lactated ringers infusion Intravenous, CONTINUOUS PRN, Starting on Sat11/02/20 at 0904, Until Sat11/02/20 at 1424, Anesthesia Intra-op $ New Bag/Syringe 11/02/2020 1:26 PM CDT $ New Bag/Syringe 11/02/2020 9:04 AM CDT lidocaine (Xylocaine) 1 % injection Infiltration, Starting on Sat11/02/20 at 1522, Until Sat11/02/20 at 1525, Anesthesia Intra-op $ Given 11/02/2020 3:22 PM CDT 1 mL lidocaine hcl (PF) (Xylocaine MPF) 2 % injection Intravenous, PRN, Starting on Sat11/02/20 at 0919, Until Sat11/02/20 at 1424, Anesthesia Intra-op $ Given 11/02/2020 9:19 AM CDT 80 mg midazolam (Versed) injection Intravenous, PRN, Starting on Sat11/02/20 at 0911, Until Sat11/02/20 at 1424, Anesthesia Intra-op $ Given 11/02/2020 9:11 AM CDT 2 mg Ondansetron HCl (Zofran) injection Intravenous, PRN, Starting on Sat11/02/20 at 1326, Until Sat11/02/20 at 1424, Anesthesia Intra-op $ Given 11/02/2020 1:26 PM CDT 4 mg phenylephrine 100 mcg/mL injection Intravenous, PRN, Starting on Sat11/02/20 at 0924, Until Sat11/02/20 at 1424, Anesthesia Intra-op $ Given 11/02/2020 10:32 AM CDT 100 mcg $ Given 11/02/2020 10:21 AM CDT 200 mcg $ Given 11/02/2020 9:45 AM CDT 200 mcg propofol (Diprivan) infusion Intravenous, CONTINUOUS PRN, Starting on Sat11/02/20 at 0939, Until Sat11/02/20 at 1424, Anesthesia Intra-op Rate Change 11/02/2020 11:34 AM CDT 50 mcg/kg/min 25.74 mL/hr Rate Change 11/02/2020 11:26 AM CDT 75 mcg/kg/min 38.61 mL /hr $ New Bag/Syringe 11/02/2020 9:39 AM CDT 50 mcg/kg/min 25. 74 mL/hr propofol (Diprivan) injection Intravenous, PRN, Starting on Sat11/02/20 at 0919, Until Sat11/02/20 at 1424, Anesthesia Intra-op $ Given 11/02/2020 9:19 AM CDT 100 mg rocuronium (Zemuron) injection Intravenous, PRN, Starting on Sat11/02/20 at 0921, Until Sat11/02/20 at 1424, Anesthesia Intra-op $ Given 11/02/2020 10:15 AM CDT 50 mg $ Given 11/02/2020 9:21 AM CDT 50 mg sugammadex (Bridion) injection Intravenous, PRN, Starting on Sat11/02/20 at 1346, Until Sat11/02/20 at 1424, Anesthesia Intra-op $ Given 11/02/2020 1:46 PM CDT 200 mg documented in this encounter Care Teams Card Feeder Relationship Specialty Start Date End Date Marla Riggins MD PCP - General Internal Medicine 08/15/20 documented as of this encounter
--- OUTSIDE RECORDS SUMMARY | 2024-04-14 04:41 | XMS_ITS | Encounter Summary ---
Author Organization [facility] Address [address] [facility] [address] [place] [address] Care Team Providers Care Faith Doctor Name Role Phone Marla Riggins MD Primary Care Provider [phone] Encounter Details Date Type Department Care Team (Latest Contact Info) Description 10/31/2020 Travel Social History Tobacco Use Types Packs/Day Years [...] AM CDT documented as of this encounter Plan of [...] documented as of this encounter Visit Diagnoses Not on filedocumented in this encounter Care Teams Faith Doctor Relationship Specialty Start Date End Date Marla Riggins MD PCP - General Internal Medicine 08/15/20 documented as of this encounter
--- OUTSIDE RECORDS SUMMARY | 2024-04-14 04:41 | XMS_ITS | Encounter Summary ---
Author Organization [facility] Address [address] [place] [address] Care Team Providers Care Forging Die Finisher Name Role Phone Marla Riggins MD Primary Care Provider [phone] Encounter Details Date Type Department Care Team (Late st Contact Info) Description 12/16/2020 Orders Only [facility] - Orthopedics [address] [facility], [place] [address] Jeremy Frye, [address] [place] [address] [address] [place] [address] Arthritis of right subtalar joint Social History [...] Visit Diagnoses Diagnosis Arthritis of right subtalar joint- Primary Arthritis of right subtalar joint documented in this encounter Care Teams Forging Die Finisher Relationship Specialty Start Date End Date Marla Riggins MD PCP - General Internal Medicine 08/15/20 documented as of this encounter
--- OUTSIDE RECORDS SUMMARY | 2024-04-14 04:41 | XMS_ITS | Encounter Summary ---
Author Organization [facility] Address [address] [facility] [place] [address] Care Team Providers Care Environmental Studies Department Chair Name Role Phone Unavailable Primary Care Provider Unavailabl e Encounter Details Date Type Department Care Team (Late st Contact Info) Description 07/20/2020 9:06 AM CDT - 07/20/2020 11:59 PM CDT Hospital Encounter [facility] [address] [facility] [place] [address] Sandy Denise PA No Information available Discharge Disposition: Home or Self Care Social History Tobacco Use Types Packs/Day Years Used Date Smoking Tobacco: Former Cigarettes Q uit: 07/20/2017 Smokeless Tobacco: Never Sex and Gender Information Value Date Recorded Sex Assigned at Not on file Gender Identity Not on file Sexual Orientation Not on file documented as of this encounter Plan of Treatment Not on file documented as of this encounter Procedures Procedure Name Priority Date/Time Associated Diagnosis Comments XR ANKLE RIGHT 3VW OR MORE Routine 07/20/2020 9:19 AM CDT Right ankle pain, unspecified chronicity documented in this encounter Results * XR ANKLE RIGHT 3VW OR MORE (07/20/2020 9:19 AM CDT) Anatomical Region Laterality Modality Lower Extremity Radiographic Chetna ging 07/20/2020 9:35 AM CDT Impressions 07/20/2020 9:41 AM CDT IMPRESSION: Healed distal tibial and fibular fractures with tibial intramedullary nail. This report was electronically signed by FAUSTINO VALERO MD ??on 07/20/2020 9:41 AM . Narrative 07/20/2020 9:41 AM CDT Exam: ??XR ANKLE RIGHT 3VW History: ??M25.571: Right ankle pain, unspecified chronicity Comparison: None. Findings: A tibial intramedullary nail is partly imaged. There are chronic appearing healed distal tibial and fibular fractures. There is heterotopic ossification extending between the tibial and fibular shafts. There is chronic fracture deformity or a spur of heterotopic ossification at the lateral aspect of the talus. No acute fracture or dislocation is seen. The tibiotalar joint space is normal. There is osteoarthritis at the subtalar joint. Mild soft tissue swelling is seen. Procedure Note Faustino Valero MD - 07/20/2020 Exam: XR ANKLE RIGHT 3VW History: M25.571: Right ankle pain, unspecified chronicity Comparison: None. Findings: A tibial intramedullary nail is partly imaged. There are chronicappearing healed distal tibial and fibular fractures. There is heterotopic ossification extending between the tibial and fibular shafts. There is chronic fracture deformity or a spur of heterotopic ossification at the lateral aspect of the talus. No acute fracture or dislocation is seen.The tibiotalar joint space is normal. There is osteoarthritis at thesubtalar joint. Mild soft tissue swelling is seen. IMPRESSION: Healed distal tibial and fibular fractures with tibial intramedullary nail. This report was electronically signed by FAUSTINO VALERO MD on07/20/2020 9:41 AM . [facility] documented in this encounter Visit Diagnoses Diagnosis Right ankle pain, unspecified chronicity documented in this encounter
--- OUTSIDE RECORDS SUMMARY | 2024-04-14 04:41 | XMS_ITS | Encounter Summary ---
Author Organization [facility] Address [address] [place] [address] Care Team Providers Care Nut Process Helper Name Role Phone Marla Riggins MD Primary Care Provider [phone] Reason for Visit * Reason Onset Date Comments Wound Drainage 12/15/2020 Encounter Details Date Type Department Care Team (Late st Contact Info) Description 12/15/2020 Telephone [facility] [address] [place], [place] [id number] Rhoda Baron, RN [address] [facility] [address] [place] [address] Wound Drainage Social History Tobacco Use Types Packs/Day Years [...] No 11/02/2020 documented as of this encounter Miscellaneous Notes * Telephone Encounter - Rhoda Baron RN - 12/15/2020 2:09 PM CDT Pt is 6 wks p/o right subtalar arthrodesis (DOS 11/02/20) and is calling to report that she has greenish-yellow, foul smelling drainage from her right lateral ankle incision. All other incisions are clean, dry and mostly healed. She has an office visit scheduled for Friday 12/22. documented in this encounter Plan of Treatment [...] on filedocumented in this encounter Care Teams Nut Process Helper Relationship Specialty Start Date End Date Marla Riggins MD PCP - General Internal Medicine 08/15/20 documented as of this encounter
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
--- OUTSIDE RECORDS SUMMARY | 2024-04-14 04:41 | XMS_ITS | Clinical Summary ---
Author Organization [facility] Address [address], [facility] [address] [place] [address] Phone Care Team Providers Care Shellfish Bed Worker Name Role Phone Marla Riggins MD Primary Care Provider [phone] Allergies Active Allergy Reactions Criticality Noted Date Comments Penicillins Rash 08/30/2016 Medications beclomethasone (QVAR) 80 MCG/ACT Aerosol Solution take 2 Puffs by inhalation 2 times daily. Reported on 08/30/2016 Active escitalopram (LEXAPRO) 10 MG Tablet Take 10 mg by mouth daily. Active Psyllium (METAMUCIL PO) Take by mouth. Active polyethylene glycol (MIRALAX) Powder Use entire 255g bottle with 64oz of clear liquid as directed for colonoscopy prep. 255 g 0 7 Active Additional Information Patient not taking.Reported on 07/02/2018 Probiotic Product (PROBIOTIC DAILY PO) Take by mouth. Activ e Active Problems No known active problems Family History Medical History Relation Name Comments Emphysema Father Heart Disease Father High Cholesterol Father Hypertension Father Prostate Cancer Father Colon Cancer Paternal Grandmother Relation Name Status Comments Father Paternal Grandmother Social History Tobacco Use Types Packs/Day Years Used Date Smoking Tobacco: Every Day Cigarettes 2 10 Smokeless Tobacco: Never Tobacco Cessation:Ready to Q uit: Yes; Counseling Given: Yes Comments:Down to a 1/2 a ppd. Alcohol Use Standard Drinks/Week Comments Yes 0 (1 standard drink = 0.6 oz pure alcohol) Glass of wine every now and then Comments No Sex and Gender Information Value Date Recorded Sex Assigned at Not on file Legal Sex Female 8:41 PM CDT Gender Identity Not on file Sexual Orientation Not on file Last Filed Vital Signs Vital Sign Reading Time Taken Comments Blood Pressure 140/92 07/02/2018 8:58 AM CDT Pulse 87 07/02/2018 8:58 AM CDT Temperature 35.8 ??C (96.5 ??F) 08/30/2016 3:17 PM CD T Respiratory Rate 18 08/30/2016 3:17 PM CDT Oxygen Saturation 97% 07/02/2018 8:58 AM CDT Inhaled Oxygen Concentration - - Weight 84.6 kg (186 lb 9.6 oz) 07/02/2018 8:58 A M CDT Height 157.5 cm (5' 2 ) 07/02/2018 8:58 AM CDT Body Mass Index 34.13 07/02/2018 8:58 AM CDT Plan of Treatment Health Maintenance Due Date Last Done Comments Hepatitis C Virus (HCV) Screening 1970 Hepatitis B Immunization (1 of 3 - 19+ 3-dose series) 1987 Cologuard 2018 Immunochemical Fecal Occult Blood 2018 Mammogram 2018 Pneumococcal Immunization (5 0+ years) (1 of 1 - PCV) 2018 Zoster Immunization (1 of 2) 2018 Colonoscopy 09/27/2021 09/27/2016, 03/29/2014 Colorectal Cancer Screening 09/27/2021 Influenza Immunization (#1) 2023 102 06/2017, 01/22/2017 SARS-COV-2 Immunization ( season) 2023 03/16/2021, 07/04/2020, 06/12/2020 Respiratory Syncytial Virus (RSV) Immunization (Adult) (1 - 1-dose 75+ series) 2043 09/27/2016, 03/29/2014 DTaP/Tdap/Td Immunization Discontinued 01/18/2016 TdaP Immunization Completed 01/18/2016 Meningococcal Immunization (ACWY) Aged Out No longer eligible based on patient's age to complete this topic Pneumococcal Immunization Combined Aged Out No longer eligible based on patient's age to complete this topic Rotavirus Immunization Aged Out No lo nger eligible based on patient's age to complete this topic Procedures Procedure Name Priority Date/Time Associated Diagnosis Comments HM COLONOSCOPY Routine 09/27/2016 from Last 3 Months or Most Recently Relevant to Health Maintenance Results * COLONOSCOPY (09/27/2016) us Marla Riggins MD PROCEDURE/MINOR SURGICAL ORDJessica MATHEW Final Result from Last 3 Months or Most Recently Relevant to Health Maintenance Insurance [facility] Care Teams Shellfish Bed Worker Relationship Specialty Start Date End Date Marla Riggins MD [address] [place] [address] PCP - General Internal Medicine 08/17/16
--- OUTSIDE RECORDS SUMMARY | 2024-04-14 04:41 | XMS_ITS | Encounter Summary ---
Author Organization [facility] Address [address] [facility] [place] [address] Care Team Providers Care Chummer Name Role Phone Marla Riggins MD Primary Care Provider [phone] Reason for Visit * Reason Comments Surgical Follow-up Encounter Details Date Type Department Care Team (Latest Contact Info) Description 12/19/2020 8:45 AM CDT Office Visit [facility] - Orthopedics [address] [place] [address], [place] [address] Jeremy Frye, [address] [place] [address] [address] [place] [address] Post-traumatic osteoarthritis of right ankle (Primary Dx) Social History Tobacco Use Types [...] No 11/02/2020 documented as of this encounter Progress Notes * Marcelo Wilcox MD - 12/19/2020 8:56 AM CDT Orthopedic Foot & Ankle Surgery Clinic Note Taylor Garcia, 50 year old, female : 1970 CSN: [id number] Primary Care Physician: Marla Riggins MD Diagnosis/Procedures 1.) Patient is a??50 year old,??female??with right subtalar arthritis - s/p:??right subtalar fusion, ICBG, renita??11/02/[address] Frye Time since injury/surgery: 6.5 weeks HPI Date of this clinic visit: 12/19/2020 Patient is a 50 year old female who presents for post-op follow-up clinic appointment, regarding the above mentioned injury complex. Patient states that pain in their ankle is doing well. She denies any pain today. She has some discomfort in her hip donor site. She has been dressing her wound with dry gauze and DAIVD wrap. She completed a course of oral abx for delayed wound healing. Has been NWB RLE and they ambulate with knee scooter and wears PFS. Denies new numbness/tingling. They are currently on Asprin for anticoagulation, she is off pain medication. Objective not currently . PMHx Past Medical [...] Rash, Medications Current Outpatient Medications Medication ??? amLODIPine (NORVASC) 10 MG tablet ??? aspirin (ASPIRIN ADULT) 325 MG tablet ??? cyclobenzaprine (FLEXERIL) 10 MG tablet ??? docusate sodium (COLACE) 100 MG capsule ??? escitalopram (LEXAPRO) 10 MG tablet ??? losartan - hydroCHLOROthiazide (HYZAAR) 50-12.5 MG tablet ??? oxyCODONE-acetaminophen (PERCOCET) 10-325 MG tablet ??? sulfamethoxazole-trimethoprim (BACTRIM DS; SEPTRA DS) 800-160 MG tablet No current facility-administered medications for [...] and demonstrated understanding. Questionssolicited and answered. 2. Ok to begin partial weight bearing and wean out of PFS 3. Prescriptions: PT 4. Return to [facility] clinic in 4 weeks with views of right ankle Marcelo Jeri, MD 12/19/2020 8:56 AM * Keely Cole RN - 12/19/2020 8:47 AM CDT Pt here for surgical follow up of the right ankle Pt denies pain Pt uses knee scooter with ambulation documented in this encounter Plan of Treatment [...] Diagnosis Post-traumatic osteoarthritis of right ankle- Primary documented in this encounter Care Teams Chummer Relationship Specialty Start Date End Date Marla Riggins MD PCP - General Internal Medicine 08/15/20 documented as of this encounter
--- OUTSIDE RECORDS SUMMARY | 2024-04-14 04:41 | XMS_ITS | Encounter Summary ---
Author Organization [facility] Address [address] [facility] [place] [address] Care Team Providers Care Acid Wash Operator Name Role Phone Marla Riggins MD Primary Care Provider [phone] Encounter Details Date Type Department Care Team (Late st Contact Info) Description 11/21/2020 8:45 AM CDT Office Visit [facility] - Orthopedics [address] [place] [address], [place] [address] Jeremy Frye, [address] [place] [address] [address] [place] [address] Arthritis of right subtalar joint [...] AM CDT documented as of this encounter Last Filed Vital Signs Vital Sign Reading Time Taken Comments Blood Pressure - - Pulse - - Temperature - - Respiratory Rate - - Oxygen Saturation - - Inhaled Oxygen Concentration - - Weight 85.7 kg (189 lb) 11/21/2020 4:24 PM CDT Height 157.5 cm (5' 2 ) [...] as of this encounter Progress Notes * Jeremy Frye DO - 11/24/2020 1:38 PM CDT Agree with patients clinical exam and diagnosis and treatment plan. * Mary Guzman - 11/22/2020 2:54 PM CDT Postop follow up for a right subtalar arthritis S/P Right subtalar fusion ICBG Renita on 11/02/2020. * Marcelo Hall MD - 11/21/2020 8:53 AM CDT Orthopedic Foot & Ankle Surgery Clinic Note Taylor Garcia, 50 year old, female : 1970 CSN: [id number] Primary Care Physician: Marla Riggins MD Diagnosis/Procedures 1.) Patient is a??50 year old,??female??with right subtalar arthritis - s/p:??right subtalar fusion, ICBG, renita ??11/02/[address] Frye Time since injury/surgery: 2.5 weeks HPI Date of this clinic visit: 11/21/2020 Patient is a 50 year old female who presents for post-op follow-up clinic appointment, regarding the above mentioned injury complex. Patient states that pain in their ankle is doing well. Has been NWB RLE and they ambulate with knee scooter and wears PFS. Denies new numbness/tingling. They are currently on Asprin for anticoagulation, she is off pain medication. She has a had a few falls Objective not currently . PMHx Past Medical [...] Types: Cigarettes Quit date: 07/20/2017 Years since quittin.3 ??? Smokeless tobacco: Never Used Substance Use [...] some eschar along vertical limb. ICBG site healingwell -Sensation: SILT in DP/SP/Sural/Saphenous/Tibial nerve distributions -Vascular: 2+ DP/ PT pulse with toes warm and well perfused Range of Motion: Dorsiflexion: neutral Plantar Flexion: 10 Muscle Strength: - Fires EHL/FHL/Gastroc/TA/ Peroneals Imaging - XR right ankle demonstrate subtalar screws intact and in place - Please see separate radiographic report for formal read by Radiology Assessment/Plan: Patient is a??50 year old,??female??with right subtalar arthritis - s/p:??right subtalar fusion, ICBG, renita ??11/02/[address] Frye 1. Patient was counseled to the nature of their diagnosis and demonstrated understanding. Questionssolicited and answered. 2. NWB RLE 3. Return to clinic in 4 weeks with views of right ankle Marcelo Hall MD 11/21/2020 8:53 AM documented in this encounter Plan of Treatment [...] Primary documented in this encounter Care Teams Acid Wash Operator Relationship Specialty Start Date End Date Marla Riggins MD PCP - General Internal Medicine 08/15/20 documented as of this encounter
--- OUTSIDE RECORDS SUMMARY | 2024-04-14 04:41 | XMS_ITS | Encounter Summary ---
Author Organization [facility] Address [address] [facility] [place] [address] Care Team Providers Care Senior Care Assistant Name Role Phone Marla Riggins MD Primary Care Provider Encounter Details Date Type Department Care Team (Late st Contact Info) Description 10/26/2020 Orders Only [facility] [address] [place] [address] Rhoda Baron, RN [address] [facility] [address] [place] [address] Arthritis of right subtalar joint ; Preop examination Social History Tobacco Use Types Packs/Day Years [...] Diagnosis Arthritis of right subtalar joint- Primary Preop examination Preoperative examination, unspecified documented in this encounter Care Teams Senior Care Assistant Relationship Specialty Start Date End Date Marla Riggins MD PCP - General Internal Medicine 08/15/20 documented as of this encounter
--- OUTSIDE RECORDS SUMMARY | 2024-04-14 04:41 | XMS_ITS | Encounter Summary ---
Author Organization [facility] Address [address] [facility] [place] [address] Care Team Providers Care City Manager Name Role Phone Marla Riggins MD Primary Care Provider [phone] Reason for Visit * Reason Onset Date Comments MEDICATION REFILL 12/15/2020 Encounter Details Date Type Department Care Team (Late st Contact Info) Description 12/15/2020 Refill [facility] [address] [facility], [facility] [place] [address] Rhoda Baron, RN [address] [facility] [address] [place] [address] MEDICATION REFILL Social History Tobacco Use Types Packs/Day Years [...] Encounter - Rhoda Baron RN - 12/15/2020 2:[address] Wilcox- please call in Bactrim DS bid x7 days. documented in this encounter Plan of Treatment [...] on filedocumented in this encounter Care Teams City Manager Relationship Specialty Start Date End Date Marla Riggins MD PCP - General Internal Medicine 08/15/20 documented as of this encounter
--- OUTSIDE RECORDS SUMMARY | 2024-04-14 04:41 | XMS_ITS | Encounter Summary ---
Author Organization [facility] Address [address] [facility] [place] [address] Care Team Providers Care Coal Yard Supervisor Name Role Phone Marla Riggins MD Primary Care Provider [phone] Encounter Details Date Type Department Care Team (Latest Contact Info) Description 11/21/2020 8:31 AM CDT - 11/21/2020 11:59 PM CDT Hospital Encounter [facility] [address] [facility] [address] Jeremy Frye, DO [address] [facility] [address] [place] [address] Discharge Disposition: Home or Self [...] AM CDT documented as of this encounter Functional Status [...] Sig Dispensed Refills Start Date End Date aspirin (ASPIRIN ADULT) 325 MG tablet Take [...] XR ANKLE RIGHT 3VW OR MORE Routine 11/21/2020 8:37 AM CDT Post-traumatic osteoarthritis of right ankle documented in this encounter Results * XR ANKLE RIGHT 3VW OR MORE (11/21/2020 8:37 AM CDT) Anatomical Region Laterality Modality Lower Extremity Radiographic Chetna ging 11/21/2020 9:13 AM CDT Impressions 11/21/2020 9:17 AM CDT Impression: 1. 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 2. Instrumented right subtalar arthrodesis with solid osseous fusion. This report was electronically signed by CLAIR PERRY ??on 11/21/2020 9:17 AM . Narrative 11/21/2020 9:17 AM CDT Examination: XR ANKLE RIGHT 3VW OR MORE History: M19.171: Post-traumatic osteoarthritis of right ankle Findings:Comparison to 11/02/2020. There is an unchanged healed fracture of the distal right tibia with internal fixation and heterotopic ossification in the tibiofibular syndesmosis and unchanged comminuted and displaced healed segmental fracture of the distal fibula. Alignment is unchanged. There is instrumented subtalar arthrodesis with 2 screws, with unchanged alignment and solid osseous fusion. Procedure Note Clair Perry MD - 11/21/2020 Examination: XR ANKLE RIGHT 3VW OR MORE History: M19.171: Post-traumatic osteoarthritis of right ankle Findings:Comparison to 11/02/2020. There is an unchanged healed fracture of the distal right tibia with internal fixation and heterotopic ossification in the tibiofibular syndesmosis and unchanged comminuted and displaced healed segmental fracture of the distal fibula. Alignment is unchanged. There is instrumented subtalar arthrodesis with 2 screws, with unchangedalignment and solid osseous fusion. Impression: 1. Unchanged healed fractures of the distal right tibia and fibula withan intramedullary dada in the tibia and heterotopic ossification across the distal tib-fib syndesmosis. 2. Instrumented right subtalar arthrodesis with solid osseous fusion. This report was electronically signed by CLAIR PERRY on 11/21/2020 9:17AM . Jeremy Frye DO DIAGNOSTIC IMAGING [facility] documented in this encounter Visit Diagnoses Diagnosis Post-traumatic osteoarthritis of right ankle documented in this encounter Care Teams Coal Yard Supervisor Relationship Specialty Start Date End Date Marla Riggins MD PCP - General Internal Medicine 08/15/20 documented as of this encounter
--- OUTSIDE RECORDS SUMMARY | 2024-04-14 04:41 | XMS_ITS | Encounter Summary ---
Author Organization [facility] [employer] Address [address] [facility] [place] [address] Care Team Providers Care Barrel Assembler Name Role Phone Marla Riggins MD Primary Care Provider [phone] Reason for Visit * Auth/Cert Specialty Diagnoses / Procedures Referred By Asmita alston Referred To Contact Diagnoses Arthritis of right subtalar joint ARTHRITIS OF RIGHT SUBTALAR JOINT Procedures ARTHRODESIS/FUSION TARSOMETATARSAL (FOOT) Referral ID Status Reason Start Date Expiration Date Visits Re quested Visits Authorized [id number] 1 1 Encounter Details Date Type Department Care Team (Late st Contact Info) Description 11/02/2020 9:15 AM CDT - 11/02/2020 1:15 PM CDT Surgery [facility] [address] [place] [id number] Jeremy Frye DO [address] [facility] [address] [place] [id number] RIGHT SUBTALAR ARTHRODESIS Surgery Details Date/Time Status Location OR Service Patient Class Case Class Case Type Trauma Case? 11/02/2020 9:15 AM Posted [facility] OR OR 06 Orthopedics Surgery Day Care Over Night Panel 1 Procedure LRB Anes Op Region Wound Class Comments RIGHT SUBTALAR ARTHRODESIS Right General with Block Clean Surgeon Surgeon Role Service Panel Jeremy Frye DO Primary Orthopedics 1 Marcelo Hall MD Resident - Assisting Ortho pedics 1 Special Needs SUPINE, C-ARM, RUSSELL BAG, TOURNIQUETZIMMER; WILL NEED BRUNILDA 6.5 CANNULATED SCREWS, WILL NEED MICRO SAGITTAL SAW documented in this encounter Social History Tobacco [...] Sign Reading Time Taken Comments Blood Pressure 108/78 11/02/2020 7:30 AM CDT Pulse 87 11/02/2020 7:30 AM CDT Temperature - - Respiratory Rate 14 11/02/2020 7:30 AM CDT Oxygen Saturation 97% 11/02/2020 7:30 AM CDT Inhaled Oxygen Concentration - - Weight 85.8 kg (189 lb 3.2 oz) 11/02/2020 7:18 A M CDT Height 157.5 cm (5' 2 ) 11/02/2020 7:18 AM CDT Body Mass Index 34.61 11/02/2020 7:18 AM CDT documented in this encounter Functional Status [...] No 11/02/2020 documented as of this encounter Discharge Summaries * Marcelo Hall MD - 11/05/2020 11:30 AM CDT Orthopedic Surgery Discharge Summary 11/07/2020 Patient: Quita Almonte / 50 year old / female : 1970 CSN: [id number] Attending Physician: Jeremy Frye DO Consults: none Admit date: 11/02/2020 6:47 AM Discharge date: 11/07/2020 Admitting Diagnoses: Active Problems: Arthritis of right subtalar joint Right leg pain Discharge Diagnoses: Active Problems: Arthritis of right subtalar joint Right leg pain Significant Diagnostic Studies: XR ANKLE RIGHT 3VW OR MORE Final Result EXAMINATION: XR ANKLE RIGHT 3VW OR MORE HISTORY: M19.071: Arthritis of right ankle COMPARISON: Right ankle radiograph dated 07/20/2020 FINDINGS/IMPRESSION: Redemonstration of intramedullary dada in the partially visualized distal tibia. Interval placement of 2 screws traversing the talocalcaneal joint. Surgical drain is in place. Redemonstration of chronic-appearing fractures of the distal tibial and fibular shafts. Partial visualization of a chronic fracture deformity/spur at the lateral talus. No joint effusion is seen. Bone density and texture are normal. Soft tissue swelling is present. A splint is in place. Dictated by Shirley Suresh MD (global president). I, Dr. ANGELINA PENA have personally reviewed and interpreted this examination/study. This report was electronically signed by ANGELINA PENA on 11/03/2020 12:14 PM . FL DIAMANTE SURGERY Final Result Fluoroscopy was used for this exam in the OR. Please see the Operative report. HPI: Quita Almonte is a 50 year old female who sustained the following orthopaedic problem(s) and intervention(s): Patient is a??50 year old,??female??with right subtalar arthritis - s/p:??right subtalar fusion, ICBG, renita ??11/02/[address] Frye [facility] Hospital Course: Quita Almonte was admitted on 11/02/2020 as an outpatient for the above listed procedure. Patient tolerated the procedure without complication and was extubated and transported to the PACU safely and was admitted as an inpatient. On POD#3 she cleared PT and pain was controlled on PO pain medication. Diet was advanced and patient tolerated PO intake. Patient was discharged home in stable condition and will follow up with Dr. Frye in 2 week(s). Physical Exam: - Afebrile, vital signs stable RLE -Appearance:??splint??c/d/i, dressing to hip c/d/i, -ROM: immobilized in??short leg splint?? -Motor: fires EHL/FHL -Sensation: intact to light touch over toes -Vascular: ??brisk capillary refill, toes warm and well perfused Discharging Physician: Marcelo Hall MD Discharge Condition: good. Disposition: Home. MEDICATIONS Prior to admission: No current facility-administered medications on file prior to encounter. No current outpatient medications on file prior to encounter. Discharge medications and follow up: Patient Instructions Summary: - Weight Bearing: no weight-bearing right leg - Activity: Activity as tolerated - Diet: regular diet - Wound Care: Keep wound clean and dry. Change dressing in 3 days or sooner if saturated. Replace with dry dressings every day. No showers until we see you in clinic - Anticoagulation: aspirin 325mg twice daily - Sutures/Rocael: dissolvable - Pain Medication: Percocet Narcotic Medication Patient Information You are being discharged/sent home with a prescription(s) for narcotic pain medicine (examples: Oxycodone, Hydrocodone, Roxicodone, Percocet, De Leon). Our goal is to control your pain, however all medicines may have side effects. Additionally it is important to remember that the goal of pain medication is not to take away the pain completely but rather combat it enough to make daily living manageable. Please be aware of the following instructions: - You should not drive or operate any motorized vehicle or heavy or dangerous machinery until you have been able to stop taking your pain medicine for at least 48 (forty eight) hours. - You should avoid making any serious or legal decisions while you are taking any medicine for pain. - Take your pain medicine as prescribed by your physician, per the label on your medicine container. - You may need an over the counter laxative or stool softener while taking your pain medicine (pain medicines can cause constipation). - Do not consume alcohol while taking pain medicine. - Do not use recreational drugs while taking pain medicine. - Over the first week you are discharged you should be gradually weaning off narcotics and switch to only taking over the counter Tylenol. - Many pain medicines (such as De Leon or Percocet) also contain Tylenol/Acetaminophen (this is the 325 component of the 5-325 or 10-325 which is listed on the medicine container). Do not consume more than the daily dose of Tylenol/Acetaminophen (3 grams or 3,000 miligrams) combined between regular Tylenol and your pain medication. - For your comfort and safety, we need to see you in the office to write additional prescriptions for pain medicine. No pain medicine will be renewed over the phone. - Bring all medicine bottles to office visits. Please plan to follow-up with Dr. Frye in 2 week(s). You will need to call the clinic to schedule/confirm this visit (contact information below). If you have any questions or concerns please call before your visit. Marcelo Hall MD 11/07/2020 8:12 AM [facility] Orthopedic Surgery office contact information: [facility] [address], [place] [address], [place] [address] [place] [address] documented in this encounter Discharge Instructions * Discharge Instructions* Marcelo Hall MD - 11/02/2020 3:03 PM CDT Orthopedic Surgery Patient Discharge Instructions Ms. Quita Almonte, You are being discharged from the hospital today during which time you have been under the care of the Orthopedic Foot and Ankle Surgery team. You had the following injuries and interventions: Patient is a 50 year old, female with right subtalar arthritis - s/p: right subtalar fusion, IC, renita 11/02/[address] Frye You may resume you normal diet (including any special diets as directed by your primary doctor) as well as your home medications. You should follow up with you primary doctor if you have any questions regarding medication youtook prior to your stay in the hospital. Always keep your surgical incision/dressing clean and dry. If you experience increasing pain at your incision site, redness, swelling, increasing discharge, foul odors, or fevers (greater than 100.4)and chills you should call the office at the above number. If you feel this is an emergency you should be evaluated in the Emergency Department of a nearby hospital. Patient Instructions Summary: - Weight Bearing: no weight-bearing right leg - Activity: Activity as tolerated - Diet: regular diet - Wound Care: Keep wound clean and dry. Change dressing in 3 days or sooner if saturated. Replace with dry dressings every day. No showers until we see you in clinic - Anticoagulation: aspirin 325mg twice daily - Sutures/Mccammon: dissolvable - Pain Medication: Percocet Narcotic Medication Patient Information You are being discharged/sent home with a prescription(s) for narcotic pain medicine (examples: Oxycodone, Hydrocodone, Roxicodone, Percocet, De Leon). Our goal is to control your pain, however all medicines may have side effects. Additionally it is important to remember that the goal of pain medication is not to take away the pain completely but rather combat it enough to make daily living manageable. Please be aware of the following instructions: - You should not drive or operate any motorized vehicle or heavy or dangerous machinery until you have been able to stop taking your pain medicine for at least 48 (forty eight) hours. - You should avoid making any serious or legal decisions while you are taking any medicine for pain. - Take your pain medicine as prescribed by your physician, per the label on your medicine container. - You may need an over the counter laxative or stool softener while taking your pain medicine (pain medicines can cause constipation). - Do not consume alcohol while taking pain medicine. - Do not use recreational drugs while taking pain medicine. - Over the first week you are discharged you should be gradually weaning off narcotics and switch to only taking over the counter Tylenol. - Many pain medicines (such as De Leon or Percocet) also contain Tylenol/Acetaminophen (this is the 325 component of the 5-325 or 10-325 which is listed on the medicine container). Do not consume more than the daily dose of Tylenol/Acetaminophen (3 grams or 3,000 miligrams) combined between regular Tylenol and your pain medication. - For your comfort and safety, we need to see you in the office to write additional prescriptions for pain medicine. No pain medicine will be renewed over the phone. - Bring all medicine bottles to office visits. Please plan to follow-up with Dr. Frye in 2 week(s). You will need to call the clinic to schedule/confirm this visit (contact information below). If you have any questions or concerns please call before your visit. Marcelo Hall MD [facility] Orthopaedic office contact information: [facility] ([facility]) [address] [place] [address] [place] [address] [facility] [address] [place] [address] [place] [address] documented in this encounter Medications at Time of Discharge [...] 11/02/2020 01/31/2021 documented as of this encounter Progress Notes * Ariela Sears RN - 11/05/2020 11:30 AM CDT Case Management Progress Note Discharge Summary Patient: Quita Almonte / 50 year old / female : 1970 Admit date: 11/02/2020 6:47 AM Discharge date: 11/07/2020 ?? Patient Disposition: Home. Pt arranged transportation home. No other CM needs identified Ariela Sears RN [phone] Care Coordination Nurse Fitness Director * Delmi Lara RN - 11/05/2020 11:29 AM CDT Pt's transported pt home at [facility]. Pt was wheeled via w/c. All belongings in place. [place] paper work given and education provided including follow ups. Pt informed that referral for WW has already been sent to deliver to her home. Nursing attempted to f/u with CM but did not hear back prior to [facility]. * Pelon Wilcox MD - 11/05/2020 6:52 AM CDT [facility]opedic Foot and Ankle Surgery Daily Progress Note Quita Almonte, 50 year old, female : 1970 CSN: [id number] Primary Care Physician: Marla Riggins MD - Admission Date/Time: 11/02/2020 6:47 AM - Hospital Day: 3 Subjective Patient seen and examined this AM on rounds. No new problems or issues overnight. Pain controlled this morning. Denies any new numbness/paresthesias. POD#3 s/p right subtalar fusion. Vitals Temp (24hrs), Av.4 ??F (36.9 ??C), Min:97.9 ??F (36.6 ??C), Max:98.6 ??F (37 ??C) BP 110/72 Pulse 85 Temp 97.9 ??F (36.6 ??C) Resp 16 Ht 5' 2 (1.575 m) Wt 189 lb 3.2 oz (85.8 kg) SpO2 97% BMI 34.61 kg/m2 Labs Recent Labs Component Name 11/05/20 0123 11/04/20 0247 11/03/20 0211 WBC 10.9* 14.8* 17.6* HGB 10.3* 10.7* 11.3* HCT 31.7* 32.3* 34.5* PLTCOUNT [phone] Recent Labs Component Name 11/02/20 0758 INR 0.9 Physical Exam General: Awake, cooperative, no acute distress, ?? RLE -Appearance: splint c/d/i, dressing to hip c/d/i, HV to ankle and hip -ROM: immobilized in short leg splint -Motor: fires EHL/FHL -Sensation: intact to light touch over toes -Vascular: brisk capillary refill, toes warm and well perfused Assessment/Plan Active Problems: Arthritis of right subtalar joint Right leg pain Patient is a 50 year old, female with right subtalar arthritis - s/p: right subtalar fusion, ICBG, renita 11/02/[address] Frye 1. Activity/Weight-bearing status: NWB RLE 2. Drains pulled this am 3. Dressings changed 4. Placed into PFS 5. Anticoagulation Status: ASA 325mg BID. Patient should be discharged on 35 days of DVT prophylaxis 6. Diet: reg 7. PT/OT 8. Pain Control 9. Plan for discharge home today Upon Discharge patient should follow up with Dr. Frye in 2 week(s) with the following imaging studies: XR ankle right 3 view. They will need to call our clinic to schedule/confirm appointment, contact information listed below. [facility] office contact information: [facility] [address] [facility], [place] [address] [facility] [address] [facility], [place] [address] [facility] [address] [place] [address], [address] [place], [place] [id number] Pelon Wilcox MD 11/05/2020 6:52 AM * Delmi Lara RN - 11/04/2020 3:17 PM CDT Problem: Fall Risk Goal: Fall risk and fall related injury risk are minimized (interventions related to the fall risk can be found in the flowsheet documentation) Outcome: Progressing Problem: Balance Goal: LTG - Patient will maintain standing and sitting balance to allow for completion of daily activities Outcome: Progressing Problem: Mobility Goal: LTG - Patient will demonstrate safe mobility requirements. Outcome: Progressing * Diana Nesbitt - 11/04/2020 1:14 PM CDT [facility] Physical Medicine and Rehabilitation PhysicalTherapy Progress Note Patient: Quita Almonte Med Record Number: [id number] Date of : 1970 Age: [age] year old Face Mask: PT and PT student wore procedural masks and gloves throughout session. Discharge Recommendation: Patient should be able to return home when medically cleared by physicianteam. Subjective: Patient agreeable to PT treatment. Can I use the knee scooter? Patient notes she has wheeled walker and transport chair at home. She also notes that she has a rollator at home that she can use as a knee scooter . Therapist informed patient that rollator is not intended to be used as a knee scooter and it would be unsafe to do so. Mental Status: a/o x 3 At start of therapy session, patient found in bed with RLE elevated on one pillow and with no alarm. Pain: Patient has 6/10 pain in RLE and R hip Follow-up for pain: Yes, Informed nurse Weight Bearing Status: NWB RLE Mobility: Supine to Sit: Independent Sit to Supine: Independent Sit to Stand: Independent with WW Bed to Chair: Independent with WW Gait: Device: Wheeled Walker, knee scooter, and gait belt Assistance: Stand By Assist Distance: 8 feet with WW to knee scooter, 60 feet on knee scooter to stairs, 2 feet from knee scooter to stairs using WW, 2 feet from stairs to knee scooter with WW, 70 feet on knee scooter back to bed Deviations: maintained NWB RLE, demonstrated appropriate use of WW and knee scooter. Balance: Static Sitting: good Dynamic sitting: good Static Standing: good Dynamic Standing: good Stairs : Patient ascended/descended one step with WW and no rails with Stand By Assist. Patient instructed to back up to step and step up backwards using WW. She was then instructed that she would typically turn around on the stair and place the walker on the top step/platform and step up into the walker. Unable to perform this 2/2 the nature of the practice steps. Patient then descended one stepwith WW and no rail appropriately. Patient maintained RLE NWB appropriately Vitals: (*Assess the 3 levels of oxygen saturations both for room air and 02 unless rest on room air is 88% or less). Rest BP: 94/69 HR: HR: 83 81 Sp02 Sp02 93% 97% Room Air 2L O2 Ex/Gait/Activity Without 02 BP: -- HR: 95 Sp02 86% Room Air Ex/Gait/Activity With 02 BP: -- HR: 109 Sp02 94-97% 2L O2 Post Activity BP: 114/63 HR: 100 103 Sp02 Sp02 94-96% 92% 2L O2 Room Air Observations: no c/o dizziness or SOB. Patient fatigues with activity. Activity Tolerance: Patient's activity tolerance: fair Treatment/therapeutic Exercise: patient seen for bed mobility, transfers, gait training with a WW and knee scooter, and stair training with a WW. EDUCATION: While performing PT, Patient was instructed in:Functional mobility training/weight bearing status, Energy conservation, Safety awareness/fall precaution, Pursed lip breathing, Edema management and use of assistive device Patient demonstrated Good understanding of instructions given. GOALS: Short Term Goals: Patient will perform bed mobility:??Independent (Met /6) Patient will transfer sit to/from stand:??Independent (Met 8/6) Patient will transfer bed to/from chair:??Independent (Met 8/6) Patient will ambulate??50??feet with Stand By Assist??and appropriate AD on least required O2 to maintain SpO2 >92% (Updated 11/04) Patient will ascend/descend??2??steps: Minimal assist (Met 11/04) ? Retirement Goal(s): Patient to be independent/baseline with functional mobility and self care and be able to safely discharge to prior level of care Update Treatment Plan: will continue to monitor supplemental O2 needs with activity If patient is discharged from the facility, this note serves as a discharge note if further physical therapy visits did not occur. Following therapy session, patient left in bed with RLE elevated on one pillow, with call light within reach and with Delmi BALTAZAR aware. * Delmi Lara RN - 11/04/2020 12:36 PM CDT Assumed pt's care at 1230. * Eliane Basurto OT - 11/04/2020 9:30 AM CDT [facility] Physical Medicine and Rehabilitation Occupational Therapy Progress Note Patient: Quita Almonte Med Record Number: [id number] Date of : 1970 Age: [age] year old Face Mask: YES (N95 + EYE PROTECTION + GLOVES) Tech: NO Discharge Recommendation: Patient should be able to return home when medically cleared by physicianteam. Therapy will continue to treat patient while in hospital. See current amount of assist neededbelow Precautions: Weight Bearing Status: Lower Extremity (NWB R LE) FALLS SAFETY Subjective: I need to use the bathroom At start of therapy session, patient found in bed and with no alarm. Pain: Patient has 2/10 pain in R LE Follow-up for pain: No follow-up for pain indicated and patient agreed to proceed with treatment Activities of Daily Living Feeding:NT Grooming/Bathing: not tested Upper Extremity Dressing: SBA Lower Extremity Dressing: Stand By Assist Toileting/Transfers: Minimal assist --had a large BM Mobility: Assist device: Wheeled Walker Rolling: not tested Supine to/from Sit:Stand By Assist Sit to/from Stand: Stand By Assist Bed to/from Chair: Stand By Assist Splint Issued/Checked: PFS DROPPED OFF IN ROOM YESTERDAY PER ORDER. NOT ON PATIENT. STILL IN PLASTIC WRAP. Splint Check Completed: N/A Balance: Static Sitting: good Dynamic Sitting: good Static Standing: good minus Dynamic Standing: good minus Vitals: (*Assess the 3 levels of oxygen saturations both for room air and 02 unless rest on room air is 88% or less). Rest BP: HR: SpO2 SpO2 Room Air L 02 Ex/Gait/Activity Without 02 BP: HR: 120 111 108 SpO2 81-84% 85-88%--after 2 mins rest 90%--after 3 mins rest Room Air RA Ex/Gait/Activity With 02 BP: HR: 107 SpO2 95% L 02 2L NC Post Activity BP: 131/74 (87) HR: 105 SpO2 SpO2 95-96% L 02 Room Air 2L NC Observations: GIOVANNY Soto and raw material plannerGIOVANNY Williamson aware of lower 02 sats. Left on 2L NC. Activity tolerance: good Cognitive/Perceptual: A&Ox4; follows 100% of commands. Treatment/Therapeutic Exercise: Treatment session this date focused on ADL training Functional transfer training Endurance training Bed mobility Energy conservation Safety awareness HEP training EDUCATION: While performing mobility, exercise and self care, Patient was instructed in: Functional mobility training/weight bearing status, Energy conservation, Safety awareness/fall precaution, Home exercise program, Discharge plan and Self care training Presented to patient who demonstrates Good understanding of instructions given. Equipment Issued: none Update Treatment Plan/Goals : Pt continues to benefit from skilled OT to improve independence with activities of daily living, increase strength, endurance, range of motion and decrease pain. Short Term Goals: Patient will perform grooming With modified independence Patient will perform lower extremity dressing With modified independence Patient will perform toileting With modified independence ?? Resident Services Supervisor Goal:Patient to be independent/baseline with functional mobility and self care and be able to safely discharge to prior level of care If patient is discharged from the facility, this note serves as a discharge note if further occupational therapy visits did not occur. Following therapy session, patient left in patient bedside chair, with call light within reach, with RN, Brittany aware and with RN/CP rehab cues written on white board. * Isabel, Marcelo Henry MD - 11/04/2020 8:29 AM CDT [facility] Foot [facility] Daily Progress Note Quita Almonte, 50 year old, female : 1970 CSN: [id number] Primary Care Physician: Marla Riggins MD - Admission Date/Time: 11/02/2020 6:47 AM - Hospital Day: 2 Subjective Patient seen and examined this AM on rounds. No new problems or issues overnight. Pain controlled this morning. Denies any new numbness/paresthesias. POD#2 s/p right subtalar fusion. On-Q pump fell out yesterday while working with therapy Vitals Temp (24hrs), Av.1 ??F (36.7 ??C), Min:97.6 ??F (36.4 ??C), Max:98.5 ??F (36.9 ??C) BP 137/89 Pulse 93 Temp 98.5 ??F (36.9 ??C) (Oral) Resp 20 Ht 5' 2 (1.575 m) Wt 189 lb 3.2 oz (85.8 kg) SpO2 96% BMI 34.61 kg/m2 Labs Recent Labs Component Name 11/04/20 0247 11/03/20 0211 11/02/20 0758 WBC 14.8* 17.6* 5.5 HGB 10.7* 11.3* 14.4 HCT 32.3* 34.5* 44.0 PLTCOUNT [id number] Recent Labs Component Name 11/02/20 0758 INR 0.9 Physical Exam General: Awake, cooperative, no acute distress, ?? RLE -Appearance: splint c/d/i, dressing to hip c/d/i, HV to ankle and hip -ROM: immobilized in short leg splint -Motor: fires EHL/FHL -Sensation: intact to light touch over toes -Vascular: brisk capillary refill, toes warm and well perfused Assessment/Plan Active Problems: Arthritis of right subtalar joint Right leg pain Patient is a 50 year old, female with right subtalar arthritis - s/p: right subtalar fusion, ICBG, renita 11/02/20 with Dr. Frye 1. Activity/Weight-bearing status: NWB RLE 2. Current Dispo: plan for DC tomorrow 3. Anticoagulation Status: ASA 325mg BID. Patient should be discharged on 35 days of DVT prophylaxis 4. Wound care: continue dry dressings 5. Diet: reg 6. PT/OT 7. Pain Control 8. Please page me or the Ortho Trauma pager (if after 5pm) via the hospital rubber roller grinder operator with questionsor concerns. Please do not use [employer] secure chat to contact our team with patient care issues. Upon Discharge patient should follow up with Dr. Frye in 2 week(s) with the following imaging studies: XR ankle right 3 view. They will need to call our clinic to schedule/confirm appointment, contact information listed below. [facility] Orthopedic Surgery office contact information: [facility] at [address], [place] [address], [place] [address] [facility] at [address], [address] [place] [address] Marcelo Hall MD 11/04/2020 8:29 AM * Alicia Stallworth RN - 11/03/2020 4:42 PM CDT Pt worked with therapy again this pm. * Marjorie Bacon, PT - 11/03/2020 4:08 PM CDT [facility] Physical Medicine and Rehabilitation PhysicalTherapy Progress Note Patient: Quita Almonte Med Record Number: [id number] Date of : 1970 Age: [age] year old Face Mask, gloves and protective eyewear worn by PT Tech: n/a Discharge Recommendation: Patient should be able to return home when able to manage steps and when medically cleared by physician team. Therapy will continue to treat patient while in hospital. See current amount of assist needed below. Subjective: my cousin is a PT back home- she says she can get me a sliding board to help me get toand from the toilet Patient agrees to work with PT. Will I be able to get a walker? Patient expresses concern about managing the 2 steps to enter her home Patient currently using Wheeled Walker and needs equipment if d/c home. Patient currently requires 2L supplemental O2 during activity Mental Status: patient is alert and oriented x 3, cooperative At start of therapy session, patient found in bed and with no alarm. Pain: Patient has 6/10 pain in right LE Follow-up for pain: Patient controlled analgesia Weight Bearing Status: NWB RLE Mobility: Rolling: not tested Supine to Sit:Stand By Assist to independent Sit to Supine: Stand By Assist to independent, cues for safety with lines/drains Sit to Stand:Minimal assist to Stand By Assist for safety, with cues for hand placement and NWB precautions Bed to Chair: not tested - patient requested back to bed Gait: Device:Wheeled Walker Assistance: Minimal assist to Stand By Assist Distance: 5 feet forward and backward x 2 (limited due to IV pump and MINE INSPECTOR [employer]ERAL attached to bed) Deviations: NWB RLE; cues to push through UE's for hopping technique Balance: Static Sitting: good Dynamic sitting: good Static Standing: fair with walker support Dynamic Standing: fair with walker support Stairs : verbally instructed in stair technique - limited to session in room due to lines; educatedin NWB technique with crutches vs walker; has 2 steps at home; instructed in hopping up first step backward with walker, then turning and hopping up second step forward with walker; would needs someone with her to assist with walker management; verbally instructed in technique using crutches. Further instruction and practice required to determine safe technique Vitals: (*Assess the 3 levels of oxygen saturations both for room air and 02 unless rest on room air is 88% or less). Rest BP: HR: 111 109 Sp02 Sp02 90% 96% Room Air L O2 Ex/Gait/Activity Without 02 BP: 145/83 HR: 119 Sp02 86% Room Air RA Ex/Gait/Activity With 02 BP: HR: Sp02 94% L O2 2L Post Activity BP: HR: 110 Sp02 Sp02 97% L O2 Room Air 2L Observations: Currently requiring supplemental O2 to maintain SpO2 >90% Activity Tolerance: Patient's activity tolerance: fair Treatment/therapeutic Exercise: bed mobility training, gait training, transfer training, verbal instruction in stair training EDUCATION: While performing PT, Patient was instructed in:Functional mobility training/weight bearing status, Safety awareness/fall precaution, Pursed lip breathing, Discharge plan, Use of adaptive equipment and use of incentive spirometer Patient demonstrated Fair understanding of instructions given. GOALS: Short Term Goals: Patient will perform bed mobility: Independent Patient will transfer sit to/from stand: Independent Patient will transfer bed to/from chair: Independent Patient will ambulate 50 feet with Stand By Assist and appropriate AD Patient will ascend/descend 2 steps: Minimal assist ?? Resident Services Supervisor Goal(s): Patient to be independent/baseline with functional mobility and self care and be able to safely discharge to prior level of care Update Treatment Plan: patient is progressing toward above goals; continue per plan of care If patient is discharged from the facility, this note serves as a discharge note if further physical therapy visits did not occur. Following therapy session, patient left in bed, with call light within reach and with RNJoanie aware. * Ariela Sears RN - 11/03/2020 1:48 PM CDT Case Management Short Stay Scheduled Procedure Note Quita Almonte, 50 year old, female : 1970 50F with right subtalar arthritis Patient presents for scheduled surgery s/p:??right subtalar fusion, ICBG, renita ??11/02/[address] Frye ?? Pt needing WW. Referral sent to [employer] to deliver Please contact CM for any discharge needs Ariela Sears RN [phone] Care Coordination Nurse Fitness Director * Alicia Stallworth RN - 11/03/2020 12:39 PM CDT Pt back to floor from dialysis pt would not let nurse do assessment or asked questions until she has eaten * Alicia Stallworth RN - 11/03/2020 10:10 AM CDT Pt back to bed after being up in chair . rotho foot ankle aware on q ball out of rt hip . * Marjorie Bacon PT - 11/03/2020 9:45 AM CDT [facility] Physical Medicine and Rehabilitation Physical Therapy Initial Evaluation Note Patient: Quita Almonte [facility] Record Number: [id number] Date of : 1970 Age: [age] year old Face mask, gloves and protective eyewear worn by PT Tech: n/a Discharge Recommendation: Patient should be able to return home when able to navigate steps and when medically cleared by physician team. Therapy will continue to treat patient while in hospital. Seecurrent amount of assist needed below. In addition to the 1:1 evaluation of the patient, additional eval time was spent completing the chart review prior to the assessment, completing the multidisciplinary plan of care and education plan post evaluation and communicating results of the eval to other treatment team members. Patient currently using Wheeled Walker and needs equipment if d/c home. (patient would like to progress to crutches- will continue to assess) Nurse and Occupational Therapy contacted regarding patient status and/or discharge plan. Physician Orders: Evaluation and Treat PRECAUTIONS: Fall Activity Level up ad jeanine DIAGNOSIS: Patient Active Problem List: Trigger finger of right thumb Trigger finger of left thumb Osteomyelitis of right tibia Cubital tunnel syndrome Cellulitis Transaminitis Arthritis of right subtalar joint Right leg pain Past Medical History: Diagnosis Date ??? Arthritis of subtalar joint ??? Essential hypertension SUBJECTIVE: When can we try crutches, that's what I used before (30 years ago) PATIENT GOALS: To return home, to be able to get around with crutches Home living: Type of Residence: Private Residence Lives with:: Spouse Steps to Enter: 2 Handrails: None Home Structure: Two Story Primary Bathroom: First Floor Bathroom : Tub/Shower Combo Equipment At Home: Cane-Straight Prior Function: Mobility: Ambulate-In Community;Ambulate-In Home ;Independent;Driving Fallen Within 6 Mos: No Have Help at Home?: Yes, there is help at home now How often is assistance provided?: as needed Level of Help Sufficient?: Yes Oxygen at Home: No Activity at Home: Active;Driving Vision: No impairment Hearing Exceptions: No impairment Who manages medications?: self At start of therapy session, patient found in patient bedside chair and with no alarm Pain: Patient has 4/10 pain in RLE/ankle Follow-up for pain: No follow-up for pain indicated and patient agreed to proceed with treatment OBJECTIVE: General Appearance: Adult female sitting up in chair, on RA Precautions: IV's: Peripheral line, Oxygen and Drains Skin, Incisions, Edema: RLE with splint/dressing intact Other: Vitals: (*Assess the 3 levels of oxygen saturations both for room air and 02 unless rest on room air is 88% or less). Rest BP: 126/83 HR: 108 Sp02 Sp02 89-90% 94% Room Air L O2 RA 2L Ex/Gait/Activity Without 02 BP: 128/89 HR: 119 Sp02 82% Room Air RA Ex/Gait/Activity With 02 BP: HR: Sp02 93% L O2 2L Post Activity BP: HR: 116 109 Sp02 Sp02 96% 89% L O2 Room Air 2L RA Observations: On RA when PT arrived, with SpO2 89-90% at rest; On RA during ambulation, desats to 82% with noted SOB. MENTAL STATUS: Alert and oriented times 3; Cooperative; fair safety awareness/insight; somewhat impulsive at times DIRECTION FOLLOWING: Able to follow one step commands 100 % ROM: LLE AROM WFL; Right hip and knee WFL AROM STRENGTH: 5/5 throughout LLE; RLE WFL SENSATION:intact light touch bilateral LE's; slightly diminished light touch right toes TONE: No problems noted NEGLECT: no problems noted FUNCTIONAL MOBILITY Not Tested Not Applicable Independent Stand by Assist Minimal Moderate Maximum Dependent Rolling x Scooting x Supine to/from sit x Sit to/from Stand x Bed to/ chair x Observation: patient with minimal assist for balance and safety; cues for NWB and assist for management of drains BALANCE: Sitting Static: good Dynamic: good Standing Static: fair with walker support Dynamic: fair with walker support GAIT: Weight Bearing: NWB RLE Distance: 30 feet Device: Wheeled Walker Assistance: Minimal assist Balance: fair Steps: not safe to attempt this date due to fatigue fair minus endurance Observation: limited distance due to fatigue/SOB and desat; Maintains NWB RLE during ambulation with cues; decreased balance during mobility, cues for safety and for slowing movement. Somewhat impulsive, with decreased safety as fatigued ACTIVITY TOLERANCE: Patient's activity tolerance: fair TREATMENT/INTERVENTIONS: evaluation, bed mobility training, transfer training, gait training, stairtraining, balance activities and monitoring of vitals EDUCATION: While performing PT, Patient was instructed in:Functional mobility training/weight bearing status, Safety awareness/fall precaution, Pursed lip breathing, Discharge plan and Use of adaptive equipment Patient demonstrated Fair understanding of instructions given. INFORMED CONSENT TO TREATMENT: Plan of care including recommended therapy, goals and frequency, discussed with patient who understands and agrees to proceed. ASSESSMENT: Patient's functional performance presently limited due to: medical condition, precautions, stairs, endurance, transfers, gait, safety awareness and balance and Patient would benefit from additional Physical Therapy to achieve the following functional goals to enhance independence. Short Term Goals: Goal Formation With patient Patient will perform bed mobility: Independent Patient will transfer sit to/from stand: Independent Patient will transfer bed to/from chair: Independent Patient will ambulate 50 feet with Stand By Assist and appropriate AD Patient will ascend/descend 2 steps: Minimal assist Retirement Goal(s): Patient to be independent/baseline with functional mobility and self care and be able to safely discharge to prior level of care Equipment Issued: none Plan: If patient is discharged from the facility, this note serves as a discharge summary if further physical therapy visits did not occur. Following therapy session, patient left in bed, with bed alarm on, with call light within reach, with RNJoanie aware and with RN/CP rehab cues written on white board * Alicia Stallworth RN - 11/03/2020 9:41 AM CDT Pt up inc after working with therapy this am . Pt had bm this am . Will call ortho foot ankle aboutpt bp meds being started tomorrow not today. Sent message to ortho foot ankle about pt bp meds . meds to start tomorrow * Eliane Basurto OT - 11/03/2020 8:51 AM CDT [facility] Physical Medicine and Rehabilitation Occupational Therapy Initial Evaluation Note Patient: Quita Almonte Med Record Number: [id number] Date of : 1970 Age: [age] year old Face Mask: YES (N95 + EYE PROTECTION + GLOVES) Tech: NO Discharge Recommendation: Patient should be able to return home when medically cleared by physicianteam. Therapy will continue to treat patient while in hospital. See current amount of assist neededbelow. Plan: ADL training Functional transfer training Endurance training Bed mobility Energy conservationSafety awareness HEP training Physician Orders: Evaluation and Treat Precautions: Weight Bearing Status: Lower Extremity (NWB R LE) FALLS SAFETY DIAGNOSIS: Patient Active Problem List: Trigger finger of right thumb Trigger finger of left thumb Osteomyelitis of right tibia Cubital tunnel syndrome Cellulitis Transaminitis Arthritis of right ankle Right leg pain Past Medical History: Diagnosis Date ??? Arthritis of subtalar joint ??? Essential hypertension SUBJECTIVE: When will I go home? PATIENT GOALS: Do whatever you need me to Home living: Type of Residence: Private Residence Lives with:: Spouse Steps to Enter: 2 Handrails: None Home Structure: Two Story Primary Bathroom: First Floor Bathroom : Tub/Shower Combo Equipment At Home: Cane-Straight Prior Function: Mobility: Ambulate-In Community;Ambulate-In Home ;Independent;Driving Fallen Within 6 Mos: No Have Help at Home?: Yes, there is help at home now How often is assistance provided?: as needed Level of Help Sufficient?: Yes Oxygen at Home: No Activity at Home: Active;Driving Vision: No impairment Hearing Exceptions: No impairment Who manages medications?: self At start of therapy session, patient found in bed and with no alarm. Pain: Patient has 4/10 pain in R LE Follow-up for pain: No follow-up for pain indicated and patient agreed to proceed with treatment OBJECTIVE: General Appearance: 50 yo CF in bed in NAD Precautions: IV's: Peripheral line and Drains Edema: None Vitals: (*Assess the 3 levels of oxygen saturations both for room air and 02 unless rest on room air is 88% or less). Rest BP: 124/89 (99) HR: 112 SpO2 SpO2 94% Room Air L 02 2L NC Ex/Gait/Activity Without 02 BP: HR: 115 SpO2 92% Room Air RA Ex/Gait/Activity With 02 BP: HR: SpO2 L 02 Post Activity BP: HR: 114 SpO2 SpO2 92% L 02 Room Air RA Observations: VSS on RA Cognitive: A&Ox4; pt was very polite, cooperative, and followed 100% of commands. Not impulsive. Perceptual: WFL Upper extremity range of motion: WFL B UEs Upper extremity strength: 5/5 B UEs Tone: Normal Coordination: Normal Sensation: Normal Patient's activity tolerance: good FUNCTIONAL MOBILITY Not tested Independent Stand by Assist Minimal Moderate Maximum Dependent Rolling X Supine to/from sit X Sit to/from Standing X Bed to/from chair X Functional mobility of ambulation to sink/bathroom with: SBA assist using WW Balance: Static Sitting: good Dynamic Sitting: good Static Standing: good minus Dynamic Standing: fair plus Activities of Daily Living Feeding:NT Grooming/Bathing: not tested Upper Extremity Dressing: Stand By Assist Lower Extremity Dressing: Stand By Assist Toileting/Transfers: Stand By Assist Splint Issued/Checked: PFS DROPPED OFF IN ROOM PER ORDER. TREATMENT / EDUCATION / EVALUATION: Purpose of Occupational Therapy evaluation explained. While performing mobility, exercise and self care, Patient was instructed in: Functional mobility training/weight bearing status, Energy conservation, Safety awareness/fall precaution, Home exercise program, Discharge plan and Self care training Presented to patient who demonstrates Good understanding of instructions given. INFORMED CONSENT TO TREATMENT: Plan of care including recommended therapy, goals and frequency, as well as potential risks and benefits of treatment/assessment explained to patient. Patient understands and agrees to proceed. ASSESSMENT: Functional performance limited due to: limited activities of daily living, pain, decreased mobility, endurance and decreased safety awareness Nurse and PT contacted regarding patient status and/or discharge plan. Short Term Goals: Patient will perform grooming With modified independence Patient will perform lower extremity dressing With modified independence Patient will perform toileting With modified independence Resident Services Supervisor Goal: Patient to be independent/baseline with functional mobility and self care and be able to safely discharge to prior level of care If patient is discharged from the facility, this note serves as a discharge summary if further occupational therapy visits did not occur. Following therapy session, patient left in patient bedside chair, with chair alarm on, with call light within reach, with RN, Joanie aware and with RN/CP rehab cues written on white board. * José Miguel Galicia - 11/03/2020 8:15 AM CDT [facility] Single Shot Peripheral Nerve Block Follow Up Patient seen and examined on 11/03/20. The patient is s/p popliteal and adductor canal nerve block. The block wore off at approximately 0200. Motor & sensory are back to baseline. Pain is well controlled. Pain control per primary team. Thank you for the opportunity to participate in this patient's medical care. Please call with any questions or concerns. José Miguel Galicia 11/03/20 * Marcelo Hall MD - 11/03/2020 7:23 AM CDT [facility] Orthopedic Trauma Surgery Daily Progress Note Quita Almonte, 50 year old, female : 1970 CSN: [id number] Primary Care Physician: Marla Riggins MD - Admission Date/Time: 11/02/2020 6:47 AM - Hospital Day: 1 Subjective Patient seen and examined this AM on rounds. No new problems or issues overnight. Pain controlled this morning. Denies any new numbness/paresthesias. POD#1 s/p right subtalar fusion. Vitals Temp (24hrs), Av.5 ??F (36.9 ??C), Min:98.1 ??F (36.7 ??C), Max:98.8 ??F (37.1 ??C) BP 127/91 Pulse 101 Temp 98.8 ??F (37.1 ??C) (Oral) Resp 18 Ht 5' 2 (1.575 m) Wt 189 lb 3.2 oz (85.8 kg) SpO2 93% BMI 34.61 kg/m2 Labs Recent Labs Component Name 11/03/20 0211 11/02/20 0758 WBC 17.6* 5.5 HGB 11.3* 14.4 HCT 34.5* 44.0 PLTCOUNT 303 355 Recent Labs Component Name 11/02/20 0758 INR 0.9 Physical Exam General: Awake, cooperative, no acute distress, ?? RLE -Appearance: splint c/d/i, dressing to hip c/d/i, HV to ankle and hip, On-Q pump to right hip -ROM: immobilized in short leg splint -Motor: fires EHL/FHL -Sensation: intact to light touch over toes -Vascular: brisk capillary refill, toes warm and well perfused Assessment/Plan Active Problems: Arthritis of right ankle Right leg pain Patient is a 50 year old, female with right subtalar arthritis - s/p: right subtalar fusion, ICBG, renita 11/02/[address] Frye 1. Activity/Weight-bearing status: NWB RLE 2. Current Dispo: possible DC t 3. Anticoagulation Status: ASA 325mg BID. Patient should be discharged on 35 days of DVT prophylaxis 4. Antibiotics: periop ancef 5. Wound care: continue dry dressings 6. Diet: reg 7. PT/OT 8. Pain Control 9. Please page the Ortho Trauma pager (via the hospital rubber roller grinder operator) with questions or concerns. Please do not use [employer] secure chat to contact our team with patient care issues. Upon Discharge patient should follow up with Dr. Frye in 2 week(s) with the following imaging studies: XR ankle right 3 view. They will need to call our clinic to schedule/confirm appointment, contact information listed below. [facility] Orth[facility] office contact information: [facility] [address] [place] [address] [facility] [address] [facility] [address], [place] [address] [facility] [address], [address] [place] [address] Marcelo Hall MD 11/03/2020 7:23 AM * Martha Arias RN - 11/02/2020 11:07 PM CDT Problem: Fall Risk Goal: Fall risk and fall related injury risk are minimized (interventions related to the fall risk can be found in the flowsheet documentation) Outcome: Progressing * Alicia Stallworth RN - 11/02/2020 5:37 PM CDT Pt bp lower this pm 119/74 will hold the hyzaar until tomorrow restart day * Alicia Stallworth RN - 11/02/2020 4:41 PM CDT Pt arrived to floor via bed. Patient drowsy but awakens to voice. Patient Has bulky dressing to rt leg can move toes. Patient noted to have hemovac to rt ankle and rt hip. Rt hip dressing of gauze and transparent dressing intact. Patient also has on q ball to rt hip area. Pt arrived with iv fluids and mining captain infusing. o2 on at 2l per nc. Patient at bedside. Spoke with ortho foot and ankle regarding pt bp 18/110 and pt did not take hyzaar this am . Can restart today if bp remains high. * Isabel, Marcelo Henry MD - 11/02/2020 9:24 AM CDT Orthopedic Surgery Postoperative Check Quita Almonte, 50 year old, female : 1970 CSN: [id number] Admitted: 11/02/2020 6:47 AM Subjective Nausea/vomiting: none Pain: controlled Patient stable and resting in post-anesthesia care unit Post-op check regarding: Procedure Performed: Procedure(s): RIGHT SUBTALAR ARTHRODESIS Surgery Date: 11/02/2020 Vitals: Patient Vitals for the past 6 hrs: Pulse Resp BP 11/02/20 0730 87 14 108/78 Physical Exam General appearance: Awake, cooperative, and NAD RLE -Appearance: splint c/d/i, dressing to hip c/d/i, HV to ankle and hip, On-Q pump to right hip -ROM: immobilized in short leg splint -Vascular: brisk capillary refill, toes warm and well perfused Assessment/Plan Patient is a 50 year old, female with right subtalar arthritis - s/p: right subtalar fusion, ICBG, renita 11/02/[address] Frye 1. Patient transferred to the PACU in stable condition. Patient will be transferred to the floor 2. Antibiotics- Ancef 2mg q8 for 24 hours 3. Weight-bearing/Activity/Brace Status: NWB rLE 4. DVT Prophylaxis: SCD's today. OK for Aspirin tomorrow 5. Diet: reg 6. Drains- HV to right ankle and HV to right hip 7. PT/OT 8. Pain Control 9. Imaging: Postoperative X-Rays are pending. 10. Please page me with any questions or concerns or the ortho trauma pager if after 5 pm Marcelo Hall MD 11/02/2020 9:24 AM documented in this encounter H&P Notes * Marcelo Hall MD - 10/31/2020 9:14 AM CDT Orthopedic Foot and Ankle Surgery H&P Note Quita Almonte, 50 year old, female : 1970 CSN: [id number] Diagnosis/Procedures 1.) 50F with right subtalar arthritis Today's Date: 11/02/2020 History Patient seen and examined this AM. Has been NPO since midnight. Ready to proceed to OR today for Right subtalar arthrodesis possible iliac crest bone graft, possible renita Ms. Almonte is a 50 year old female with right ankle pain. The patient presents today for operative intervention. Conservative treatment for patient's condition including PT, NSAIDS has failed. Thepatient was last seen in clinic on 08/15/20 and denies any new medical issues since being seen. No fever, chills or recent illnesses. Pertinent ROS otherwise negative. No other concerns at this time. Objective Blood pressure 108/78, pulse 87, resp. rate 14, height 5' 2 (1.575 m), weight 189 lb 3.2 oz (85.8 kg), SpO2 97 %, not currently . PMHx Past Medical History: Diagnosis Date ??? Arthritis of subtalar joint ??? Essential hypertension PSHx Past Surgical History: Procedure Laterality Date ??? Hysterectomy ??? OOPHORECTOMY Bilateral 2018 Both ovaries removed in 2 separate surgeries, 2009, 2018 ??? SIGMOIDOSCOPY sigmoid colectomy 2019 Social Hx Social History Tobacco Use ??? Smoking status: Former Smoker Years: 25.00 Types: Cigarettes Quit date: 07/20/2017 Years since quittin.2 ??? Smokeless tobacco: Never Used Substance Use Topics ??? Alcohol use: Yes Alcohol/week: 21.0 standard drinks Types: 21 Shots of liquor per week Comment: 3-4 drinks of Rum daily Family Hx family history is not on file. Allergies Allergies Allergen Reactions ??? Penicillins Rash Reaction: Rash, Medications Current Facility-Administered Medications Medication ??? ceFAZolin (Ancef) syringe 2,000 mg ??? lactated ringers infusion ??? lactated ringers infusion ??? lactated ringers infusion Review of Systems A 12 point review of systems was performed and was negative except for what was mentioned in the HPI Physical Exam General: Alert, cooperative, in no acute distress. CV: RRR, distal pulses equal and symmetric Resp: no increased labor of breathing Musculoskeletal: The foot rests in Inversion. The Right foot and ankle is without active skin lesions. There is moderate swelling. There is tenderness along the ankle joint laterally and ankle joint medially. Sensation: intact to light touch distally in superficial peroneal, deep peroneal, sural, saphenous, and tibial nerve distributions, Palpable DP, Brisk capillary refill (<2sec). Range of Motion: There is crepitus and pain with subtalar motion. Dorsiflexion: 5 Plantar Flexion: 10 Subtalar Inversion: 5 Eversion: 0 Muscle Strength: Dorsiflexion: 5/5 Plantar Flexion: 5/5 Posterior Tibial: 5/5 Peroneal muscle: 5/5 Imaging - 3 view(s) XR of the right ankle(s) demonstrated subtalar arthritis. Hardware is intact with no evidence loose or broken screws. 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 In light of the patient's above mentioned injuries, and following discussion of various treatment options, surgical management was elected for treatment of her injury. Following discussion of the indications, contraindications, risks, benefits, and potential complications the patient agreed to the procedure and consent was obtained. 2. Procedure consent form signed and in chart 3. Correct surgical site is marked 4. Proceed to OR today for right subtalar arthrodesis possible iliac crest bone graft, possible renita 5. Continue NPO, sips with meds OK 6. Hold DVT chemoprophylaxis 7. Pre-op Ancef (2 grams) 8. Type and screen 9. Plan for postop admission 10. 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 PROCEDURE: 1. An open right subtalar arthrodesis using 6.5 fully threaded cannulated screws and harvesting right anterior iliac crest bone graft, approximately 15 mL of crest graft to the right anterior iliac crest site. 2. Right Renita procedure or gastroc recession. SURGEON: Jeremy Frye DO HIDE TRIMMER: Dr. Hall. ANESTHESIA: General anesthetic. ESTIMATED BLOOD LOSS: 25 mL. INDICATIONS: The patient is a 50-year-old woman who has a past history of significant right lower extremity trauma, which was treated well and she is well healed. She does have significant arthrosis of the right subtalar joint and it was recommended to her that she consider undergoing a right subtalar arthrodesis, and at that time because of her Achilles contracture, we would also perform a rightStrayer procedure or gastroc recession. The risks and benefits were discussed and consent form signed. DESCRIPTION OF PROCEDURE: The patient was taken to the operating room at [facility] on the 02 of November and carefully placed in supine position, given a general anesthetic, and atthis time, we then carefully positioned the patient in the left lateral decubitus position with a left axillary roll carefully placed underneath the left axilla and the right upper extremity was thencarefully placed in an arm mays and the beanbag was used to then stabilize the patient in a rightside up position. Subsequently, we then carefully padded the left lower extremity throughout on thedown side and we used a bone foam device to then allow for making a table for the right leg to lie on. Then after application of a well-padded tourniquet, we underwent routine prep and drape to the right lower extremity and the right anterior iliac crest site. Then at this time, now we turned our attention to the patient's right hindfoot and an extensile L-shaped right incision was carried out along the posterolateral aspect of the hindfoot. This was done with absolutely no undermining in a subperiosteal fashion and an anterior superior fashion, elevating directly off the bone and up to the posterior facet of the talus and calcaneus. There was significant stiffness in the subtalar joint andwe immediately using a small flexible osteotome removed some bone right along the lateral border ofthe posterior facet of the calcaneus and the lateral border of the anterior process of the calcaneus. Then, at this time, then we were able to now further advance a curette into the patient's right subtalar joint, and on the posterior facets of the talus and the calcaneus, we were able to begin free ing up this very rigid subtalar joint. Afterwards, after copious irrigation, we were able to slide a lamina precision farming coordinator underneath the neck of the talus as well as the dorsal surface of the patient's right calcaneus in an extraarticular fashion and we then were able to nicely see the posterior facets of the calcaneus and the talus, and over the next 40 minutes, we then carefully maintained the cancel lous surfaces of both bony surfaces, but we removed all subchondral bone from the posterior facet of the talus and the calcaneus and we then worked over medially and nicely released the more medial portion to the subtalar joint so that it was extremely mobile, and after freeing all this up, we thencarefully then perforated the articular surfaces of the posterior facet of the talus and the calcaneus with a 0.062 wire to increase surface area and perfusion of bleeding and then we also took a small thin osteotome and scaled the surfaces of both bones to further make the surface more irregular. At this time, under C-arm fluoroscopy in both the AP and lateral views, we demonstrated very nice position now for our fusion to take place. At this time, we then put a moist lap into the lateral incision and applied Coban and let the tourniquet down at 1 hour, and at this time, we now turned our attention after changing our outer gloves to the right anterior iliac crest site, and beginning 1.5 cmproximal to the ASIS and extending 4 cm along the patient's outer table, we then incised down through skin and subcutaneous tissue directly down onto the gluteal fascia, and using electrocautery, we elevated directly over the superior cortex of the iliac crest and small Hohmann was inserted, and atthis time, then using a small flexible osteotome, we then osteotomized through each end of the patient's incision site through the superior cortex and then along the outer table and this allowed us to hinge this superior cortex medially and we repositioned the Hohmann retractor and then were able to harvest 15 mL of rich cancellous graft, and after copious irrigation, we then inserted an On-Q pain pump into the patient's inner table defect site, and then after applying 2 small drill holes, one through the superior cortex of the patient's crest and one along the outer table, we then carefully then closed down this whole hinged portion of the crest with one #2 Ethibond suture, and at this time, after copious irrigation, we closed the gluteal fascia using a 0 Vicryl in an interrupted fashion. We then inserted a 1/8-inch Hemovac drain and closed the subcutaneous tissues using 2-0 Monocryl in an interrupted fashion. The skin edges were then closed using a subcuticular 3-0 Monocryl suture. A well-padded compressive dressing was applied and the iliac crest graft was now taken to the back table. We now turned our attention back to the patient's right hindfoot, and at this time, we now putthe tourniquet back on after using the Esmarch and we then irrigated out the patient's right hindfoot wound and then spent the next 10 minutes densely packing in the cancellous bone graft, particularly along the medial portion of the patient's subtalar region in an effort to keep the hindfoot out of any varus malalignment and then we packed the rest of the graft in and we brought in intraoperative C-arm and percutaneously we advanced 2 terminally threaded guide pins, one from the plantar tuber of the calcaneus in a vertical fashion into the dome of the talus and the second terminal guidewire was advanced again percutaneously through the plantar surface of the cortex of the calcaneus up towards the head of the talus extraarticularly, and after seating these guidewires and confirming on C-arm their good position, we then subsequently underwent standard AO technique and we predrilled the patient's plantar portion of the calcaneus and then inserted 2 fully threaded compression screws withexcellent rigid fixation. We removed the guidewires. Final C-arm views demonstrated very nice alignment, and at this time, we now turned our attention to the patient's posterior cap right at the level of the musculotendinous region of the Achilles and a 4 cm longitudinal mid portion incision was carried down through skin and subcutaneous tissues and we then gently incised through the superficial compartment fascia after very carefully retracting the sural nerve laterally out of harm's way, and at this time, we then using a [place] elevator, we were then able to then mobilize the patient's Achilles mid tendinous region, and then from medial to lateral, we then incised just through the gastroc fascia and we were able to nicely stretch through the Achilles, and at this time, after copious irrigation, we then carefully closed the superficial compartment fascia using 0 Vicryl and we closed thesubcutaneous tissues using 2-0 Monocryl in an interrupted fashion. The skin edges were closed using3-0 Monocryl in a horizontal mattress fashion. We now turned our attention back to the patient's right hindfoot, and carefully in a subperiosteal subcutaneous closure over a Hemovac drain, we then closed the patient's deep extensile incision site carefully using a 2-0 Monocryl in an interrupted fashion and the skin edges were closed using 3-0 Monocryl in a horizontal mattress fashion, and at thistime, a well-padded sterile compressive Dung Escamilla bulky dressing with a posterior splint was applied and the patient was stabilized from the operating table and taken to the recovery room. All spon ge, needle and instrument counts were correct. DO OLVIN [email or web address]/[id number] Doc ID: [id number] Job ID: [id number] * Brief Op Note - Marcelo Hall MD - 11/02/2020 9:22 AM CDT Orthopedic Surgery Brief Operative Note Patient: Quita Almonte, [id number] Date of Procedure: 11/02/2020 Pre-operative Diagnosis: right ankle arthritis Post-operative Diagnosis: Same Procedure Procedure(s): RIGHT SUBTALAR ARTHRODESIS Anesthesia type: general ETT Surgeons/Assistants: Surgeon(s) and Role: * Jeremy Frye DO - Primary * Marcelo Hall MD - Resident - Assisting OR Staff: Editor & Co Founder: nAgelica Hernandez Final Assembly Worker: Dasia Easton RN Relief Scrub: Hermelinda Cancino Scrub Person: Cliff Ng Final Assembly Worker: Marilin Cortes RN Complications:none Findings: See operative report Estimated Blood Loss: Please see Anesthesia notes Fluid intake and Urine output: Please see Anesthesia notes Implant(s): Implant Name Type Inv. Item Serial No. Supervisor Counseling And Guidance Lot No. LRB No. Used Action Screw 6.5Mm 7.9Mm 2.9Mm 85Mm Ft Rvrs Cut Screw 6.5Mm 7.9Mm 2.9Mm 85Mm Ft Rvrs Cut [employer] Right1 Implanted Screw 6.5Mm 7.9Mm 2.9Mm 70Mm Ft Rvrs Cut Screw 6.5Mm 7.9Mm 2.9Mm 70Mm Ft Rvrs Cut [employer] Right1 Implanted Specimens Removed: n/a Dispo: 1. Patient transferred to the PACU in stable condition. Patient will be transferred to the floor 2. Antibiotics- Ancef 2mg q8 for 24 hours 3. Weight-bearing/Activity/Brace Status: NWB rLE 4. DVT Prophylaxis: SCD's today. OK for Aspirin tomorrow 5. Diet: reg 6. Drains- HV to right ankle and HV to right hip 7. PT/OT 8. Pain Control 9. Imaging: Postoperative X-Rays are pending. 10. Please page me with any questions or concerns or the ortho trauma pager if after 5 pm Marcelo Hall MD 11/02/2020 2:19 PM * OR Surgeon - Jeremy Frye DO - 11/02/2020 7:28 AM CDT Agree with consent and history and surgical plan documented in this encounter Plan of Treatment [...] Procedure Name Priority Date/Time Associated Diagnosis Comments CBC W/O DIFFERENTIAL AM Draw 11/05/2020 1:23 AM CDT Arthritis of right ankle CBC W/O DIFFERENTIAL AM Draw 11/04/2020 2:47 AM CDT Arthritis of right ankle CBC W/O DIFFERENTIAL AM Draw 11/03/2020 2:11 AM CDT Arthritis of right ankle BASIC METABOLIC PANEL (CALCIUM TOTAL) AM Draw 11/03/2020 2:11 AM CDT Arthritis of right ankle BLOOD TYPE VERIFICATION Routine 11/02/2020 9:50 PM CDT TYPE + SCREEN PANEL STAT 11/02/2020 6 :51 PM CDT XR ANKLE RIGHT 3VW OR MORE Routine 11/02/2020 3:33 PM CDT Arthritis of right ankle FL DIAMANTE SURGERY Routine 11/02/2020 2:30 PM CDT Transaminitis ARTHRODESIS/FUSION TARSOMETATARSAL (FOOT) 11/02/2020 10:16 AM CDT Arthritis of right subtalar joint Special Needs SUPINE, C-ARM, RUSSELL BAG, TOURNIQUETZIMMER; WILL NEED BRUNILDA 6.5 CANNULATED SCREWS, WILL NEED MICRO SAGITTAL SAW BLOOD TYPE VERIFICATION STAT 11/02/2020 8:15 AM CDT TYPE + SCREEN PANEL STAT 11/02/2020 8 :00 AM CDT PT-INR [facility] STAT 11/02/2020 7:58 AM CDT Trigger finger of right thumb CBC W AUTO DIFFERENTIAL STAT 11/02/2020 7:58 AM CDT Trigger finger of right thumb BASIC METABOLIC PANEL (CALCIUM TOTAL) STAT 11/02/2020 7:58 AM CDT Trigger finger of right thumb documented in this encounter Results * (ABNORMAL) CBC W/O DIFFERENTIAL (11/05/2020 1:23 AM CDT) [facility] WBC 10.9(H) 3.5 - 10.5 10? 3 /uL 11/05/2020 1:40 AM [facility] RBC 3.31(L) 3.80 - 5.20 10? 6 /uL 11/05/2020 1:40 AM [facility] Hemoglobin 10.3(L) 12.0 - 15.6 g/dL 11/05/2020 1:40 AM [facility] Hematocrit 31.7(L) 35.0 - 45.0 % 11/05/2020 1:40 AM [facility] MCV 95.8 80.7 - 98.3 fL 11/05/2020 1:40 AM [facility] MCH 31.1 26.7 - 34.0 pg 11/05/2020 1:40 AM [facility] MCHC 32.5 30.8 - 35.9 g/dL 11/05/2020 1:40 AM [facility] Platelet Count 174 150 - 400 10? 3 /uL 11/05/2020 1:40 AM [facility] RDW-SD 45.2 36.0 - 50.0 fL 11/05/2020 1:40 AM [facility] RDW-CV 12.9 11.2 - 14.8 % 11/05/2020 1:40 AM [facility] MPV 10.2 9.4 - 12.9 fL 11/05/2020 1:40 AM [facility] nRBC Absolute 0.00 0 10? 3 /uL 11/05/2020 1:40 AM [facility] nRBC Auto 0.0 0 /100 WBC 11/05/2020 1:40 AM [facility] Blood BLOOD SPECIMEN / Unknown Lab Venipuncture / Unknown 11/05/2020 1:23 AM CDT 11/05/2020 1:36 AM CDT Jeremy Frye DO LAB - HEMATOLOGY ORD ERABLES [facility] [address] [place] [address] [phone] * (ABNORMAL) CBC W/O DIFFERENTIAL (11/04/2020 2:47 AM CDT) WBC 14.8(H) 3.5 - 10.5 10? 3 /uL 11/04/2020 3:01 AM [facility] RBC 3.44(L) 3.80 - 5.20 10? 6 /uL 11/04/2020 3:01 AM [facility] Hemoglobin 10.7(L) 12.0 - 15.6 g/dL 11/04/2020 3:01 AM [facility] Hematocrit 32.3(L) 35.0 - 45.0 % 11/04/2020 3:01 AM [facility] MCV 93.9 80.7 - 98.3 fL 11/04/2020 3:01 AM [facility] MCH 31.1 26.7 - 34.0 pg 11/04/2020 3:01 AM [facility] MCHC 33.1 30.8 - 35.9 g/dL 11/04/2020 3:01 AM [facility] Platelet Count 264 150 - 400 10? 3 /uL 11/04/2020 3:01 AM [facility] RDW-SD 43.3 36.0 - 50.0 fL 11/04/2020 3:01 AM [facility] RDW-CV 12.6 11.2 - 14.8 % 11/04/2020 3:01 AM [facility] MPV 9.2(L) 9.4 - 12.9 fL 11/04/2020 3:01 AM [facility] nRBC Absolute 0.00 0 10? 3 /uL 11/04/2020 3:01 AM [facility] nRBC Auto 0.0 0 /100 WBC 11/04/2020 3:01 AM [facility] Blood BLOOD SPECIMEN / Unknown Lab Venipuncture / Unknown 11/04/2020 2:47 AM CDT 11/04/2020 2:55 AM CDT Jeremy Frye DO LAB - HEMATOLOGY ORD ERABLES [facility] [address] [place] [address], [facility] [phone] * (ABNORMAL) CBC W/O DIFFERENTIAL (11/03/2020 2:11 AM CDT) WBC 17.6(H) 3.5 - 10.5 10? 3 /uL 11/03/2020 3:03 AM [facility] Comment:All CBC parameters h ave been checked. RBC 3.63(L) 3.80 - 5.20 10? 6 /uL 11/03/2020 3:03 AM [facility] Hemoglobin 11.3(L) 12.0 - 15.6 g/dL 11/03/2020 3:03 AM [facility] Hematocrit 34.5(L) 35.0 - 45.0 % 11/03/2020 3:03 AM [facility] MCV 95.0 80.7 - 98.3 fL 11/03/2020 3:03 AM [facility] MCH 31.1 26.7 - 34.0 pg 11/03/2020 3:03 AM [facility] MCHC 32.8 30.8 - 35.9 g/dL 11/03/2020 3:03 AM [facility] Platelet Count 303 150 - 400 10? 3 /uL 11/03/2020 3:03 AM [facility] RDW-SD 43.7 36.0 - 50.0 fL 11/03/2020 3:03 AM [facility] RDW-CV 12.5 11.2 - 14.8 % 11/03/2020 3:03 AM [facility] MPV 9.5 9.4 - 12.9 fL 11/03/2020 3:03 AM [facility] nRBC Absolute 0.00 0 10? 3 /uL 11/03/2020 3:03 AM [facility] nRBC Auto 0.0 0 /100 WBC 11/03/2020 3:03 AM [facility] Blood BLOOD SPECIMEN / Unknown Lab Venipuncture / Unknown 11/03/2020 2:11 AM CDT 11/03/2020 2:44 AM T Jeremy Frye DO LAB - HEMATOLOGY ORD ERABLES [facility] [address] [place] [address], [facility] [phone] * (ABNORMAL) BASIC METABOLIC PANEL (CALCIUM TOTAL) (11/03/2020 2:11 AM CDT) BUN 23 7 - 26 mg/dL 11/03/2020 3:30 AM [facility] Creatinine 0.98(H) 0.56 - 0.96 mg/dL 11/03/2020 3:30 AM [facility] Comment:Confirmed by repeat analysis. Sodium 135(L) 136 - 145 mmol/L 11/03/2020 3:30 AM [facility] Potassium 4.4 3.5 - 4.5 mmol/L 11/03/2020 3:30 AM [facility] Chloride 98 98 - 107 mmol/L 11/03/2020 3:30 AM [facility] CO2 24 22 - 29 mmol/L 11/03/2020 3:30 AM [facility] Glucose 177(H) 70 - 115 mg/dL 11/03/2020 3:30 AM [facility] Calcium 8.6 8.4 - 10.2 mg/dL 11/03/2020 3:30 AM [facility] Anion Gap 17 8 - 18 11/03/2020 3:30 AM [facility] BUN/Creatinine Ratio 23 7 - 23 11/03/2020 3:30 AM CDT [facility] Osmolality Calculated 288 270 - 300 mOsm/kg 11/03/2020 3:30 AM CDT [facility] eGFR by CKD-EPI 66(L) >=90 mL/min/1.7 3 m2 11/03/2020 3:30 AM CDT [facility] Blood BLOOD SPECIMEN / Unknown Lab Venipuncture / Unknown 11/03/2020 2:11 AM CDT 11/03/2020 2:45 AM CDT Jeremy Frye DO LAB - CHEMISTRY ORDE QUINCY Performing Organization Address City/[facility]/ZIP Co de Phone Number [facility] [address] [place] [address], [facility] [phone] * BLOOD TYPE VERIFICATION (11/02/2020 9:50 PM CDT) ABO Rh O NEG 11/02/2020 10:37 PM CDT [facility] Blood Bank BLOOD SPECIMEN / Unknown Lab Venipuncture / Unknown 11/02/2020 9:50 PM CDT 11/02/2020 9:54 PM CDT Jeremy Frye DO LAB - BLOOD BANK ORD ERABLES Performing Organization Address [facility] Co de Phone Number [facility] [address] [place] [address], [place] [phone] * TYPE + SCREEN PANEL (11/02/2020 6:51 PM CDT) Antibody Screen NEG 8:09 PM CDT [facility] ABO Rh O NEG 11/02/2020 8:09 PM CDT [facility] Blood Bank BLOOD SPECIMEN / Unknown Lab Venipuncture / Unknown 11/02/2020 6:51 PM CDT 11/02/2020 7:29 PM CDT Jeremy Frye DO LAB - BLOOD BANK ORD ERABLES [facility] [address] [place] [address], [facility] [phone] * XR ANKLE RIGHT 3VW OR MORE (11/02/2020 3:33 PM CDT) Anatomical Region Laterality Modality Lower Extremity Radiographic Chetna ging 11/02/2020 3:32 PM CDT Impressions 11/03/2020 12:14 PM CDT FINDINGS/IMPRESSION: Redemonstration of intramedullary dada in the partially visualized distal tibia. Interval placement of 2 screws traversing the talocalcaneal joint. Surgical drain is in place. ??Redemonstration of chronic-appearing fractures of the distal tibial and fibular shafts. Partial visualization of a chronic fracture deformity/spur at the lateral talus. No joint effusion is seen. Bone density and texture are normal. Soft tissue swelling is present. A splint is in place. Dictated by Shirley Suresh MD (global president). Dr. ANGELINA Campbell have personally reviewed and interpreted this examination/study. This report was electronically signed by ANGELINA PENA ??on 11/03/2020 12:14 PM . Narrative 11/03/2020 12:14 PM CDT EXAMINATION: XR ANKLE RIGHT 3VW OR MORE HISTORY: M19.071: Arthritis of right ankle COMPARISON: Right ankle radiograph dated 07/20/2020 Procedure Note Angelina Pena DO - 11/03/2020 EXAMINATION: XR ANKLE RIGHT 3VW OR MORE HISTORY: M19.071: Arthritis of right ankle COMPARISON: Right ankle radiograph dated 07/20/2020 FINDINGS/IMPRESSION: Redemonstration of intramedullary dada in the partially visualized distal tibia. Interval placement of 2 screws traversing the talocalcanealjoint. Surgical drain is in place. Redemonstration of chronic-appearing fractures of the distal tibial and fibular shafts. Partial visualization of a chronic fracture deformity/spur at the lateral talus. No joint effusion is seen. Bone density and texture are normal. Soft tissue swelling is present. A splint is in place. Dictated by Shirley Suresh MD (global president). Dr. ANGELINA Campbell have personally reviewed and interpreted this examination/study. This report was electronically signed by ANGELINA PENA on 11/03/2020 12:14 PM . Jeremy Frye DO DIAGNOSTIC IMAGING O RDERABLES * [place] DIAMANTE SURGERY (11/02/2020 2:30 PM CDT) Narrative [facility] - 11/02/2020 2:32 PM CDT Fluoroscopy was used for this exam in the OR. Please see the Operative report. Jeremy Frye DO FLUOROSCOPY ORDERABL ES Performing Organization Address City/[facility]/ZIP Co de Phone Number [facility] * BLOOD TYPE VERIFICATION (11/02/2020 8:15 AM CDT) ABO Rh O NEG 11/02/2020 8:5 1 AM CDT [facility] Blood Bank BLOOD SPECIMEN / Unknown Lab Venipuncture / Unknown 11/02/2020 8:15 AM CDT 11/02/2020 8:19 AM CDT Jeremy Frye DO LAB - BLOOD BANK ORD ERABLES Performing Organization Address [facility] Co de Phone Number [facility] [address] [place] [address], [place] [phone] * TYPE + SCREEN PANEL (11/02/2020 8:00 AM CDT) Antibody Screen NEG 8:51 AM CDT [facility] ABO Rh O NEG 11/02/2020 8:51 AM CDT [facility] Blood Bank BLOOD SPECIMEN / Unknown Venipuncture / Unknown 11/02/2020 8:00 AM CDT 11/02/2020 8:08 AM CDT Jeremy Frye DO LAB - BLOOD BANK ORD ERABLES Performing Organization Address City/[facility]/ZIP Co de Phone Number [facility] [address] [place] [address], [place] [phone] * PT-INR [facility] (11/02/2020 7:58 AM CDT) PT 12.2 12.1 - 14.8 Seconds 11/02/2020 8:22 AM [facility] INR 0.9 See Comment 11/02/2020 8:22 AM [facility] Comment:The suggested therap eutic range for standard coumadin (warfarin) therapy is an INR of 2.0-3.0. For high-risk patients (Mechanical Mitral Valve Prosthesis, etc.), the suggested prophylactic therapeutic range is an INR of 2.5-3.5. Blood BLOOD SPECIMEN / Unknown Venipuncture / Unknown 11/02/2020 7:58 AM CDT 11/02/2020 8:07 AM CDT José Miguel Quinteros MD LAB - COAGULATION OR DERABLES Performing Organization Address [facility]/State/[facility] Co de Phone Number [address] [address] [phone] * (ABNORMAL) CBC W AUTO DIFFERENTIAL (11/02/2020 7:58 AM CDT) WBC 5.5 3.5 - 10.5 10? 3 /uL 11/02/2020 8:21 AM [facility] RBC 4.82 3.80 - 5.20 10? 6 /uL 11/02/2020 8:21 AM [facility] Hemoglobin 14.4 12.0 - 15.6 g/dL 11/02/2020 8:21 AM [facility] Hematocrit 44.0 35.0 - 45.0 % 11/02/2020 8:21 AM [facility] MCV 91.3 80.7 - 98.3 fL 11/02/2020 8:21 AM [facility] MCH 29.9 26.7 - 34.0 pg 11/02/2020 8:21 AM [facility] MCHC 32.7 30.8 - 35.9 g/dL 11/02/2020 8:21 AM [facility] Platelet Count 355 150 - 400 10? 3 /uL 11/02/2020 8:21 AM [facility] RDW-SD 41.1 36.0 - 50.0 fL 11/02/2020 8:21 AM [facility] RDW-CV 12.4 11.2 - 14.8 % 11/02/2020 8:21 AM [facility] MPV 9.2(L) 9.4 - 12.9 fL 11/02/2020 8:21 AM [facility] nRBC Absolute 0.00 0 10? 3 /uL 11/02/2020 8:21 AM [facility] nRBC Auto 0.0 0 /100 WBC 11/02/2020 8:21 AM [facility] Neutrophils % 49.8 35.0 - 70.0 % 11/02/2020 8:21 AM [facility] Lymphocytes % 37.2 20.0 - 43.0 % 11/02/2020 8:21 AM [facility] Monocytes % 7.4 5.0 - 13.0 % 11/02/2020 8:21 AM [facility] Eosinophils % 3.4 0.0 - 6.0 % 11/02/2020 8:21 AM [facility] Basophil % 1.5 0.0 - 2.0 % 11/02/2020 8:21 AM [facility] Neutrophils Absolute 2.7 1.6 - 7.0 10? 3 /uL 11/02/2020 8:21 AM [facility] Lymphocyte Absolute 2.1 1.1 - 3.9 10? 3 /uL 11/02/2020 8:21 AM [facility] Monocytes Absolute 0.41 0.26 - 1.07 10? 3 /uL 11/02/2020 8:21 AM [facility] Eosinophils Absolute 0.19 0.00 - 0.47 10? 3 /uL 11/02/2020 8:21 AM [facility] Basophils Absolute 0.08 0.00 - 0.08 10? 3 /uL 11/02/2020 8:21 AM [facility] Immature Granulocytes % 0.7 0.0 - 1.0 % 11/02/2020 8:21 AM [facility] Immature Granulocytes Absolute 0.04 11/02/2020 8:21 AM [facility] Blood BLOOD SPECIMEN / Unknown Venipuncture / Unknown 11/02/2020 7:58 AM CDT 11/02/2020 8:09 AM T José Miguel Quinteros MD LAB - HEMATOLOGY ORD ERABLES [facility] [address] [place] [address], [facility] [phone] * (ABNORMAL) BASIC METABOLIC PANEL (CALCIUM TOTAL) (11/02/2020 7:58 AM CDT) BUN 12 7 - 26 mg/dL 11/02/2020 8:39 AM [facility] Creatinine 0.55(L) 0.56 - 0.96 mg/dL 11/02/2020 8:39 AM [facility] Sodium 135(L) 136 - 145 mmol/L 11/02/2020 8:39 AM [facility] Potassium 3.8 3.5 - 4.5 mmol/L 11/02/2020 8:39 AM [facility] Chloride 95(L) 98 - 107 mmol/L 11/02/2020 8:39 AM [facility] CO2 30(H) 22 - 29 mmol/L 11/02/2020 8:39 AM [facility] Glucose 109 70 - 115 mg/dL 11/02/2020 8:39 AM [facility] Calcium 9.9 8.4 - 10.2 mg/dL 11/02/2020 8:39 AM [facility] Anion Gap 14 8 - 18 11/02/2020 8:39 AM [facility] BUN/Creatinine Ratio 22 7 - 23 11/02/2020 8:39 AM [facility] Osmolality Calculated 280 270 - 300 mOsm/kg 11/02/2020 8:39 AM [facility] eGFR by CKD-EPI >90 >=90 mL/min/1.7 3 m2 11/02/2020 8:39 AM [facility] Blood BLOOD SPECIMEN / Unknown Venipuncture / Unknown 11/02/2020 7:58 AM CDT 11/02/2020 8:09 AM CDT José Miguel Quinteros MD LAB - CHEMISTRY KATIA MATHEW [facility] [address] [place] [address], [facility] [phone] documented in this encounter Visit Diagnoses Diagnosis Trigger finger of right thumb- Primary Transaminitis Nonspecific elevation of levels of transaminase or lactic acid dehydrogenase (LDH) Arthritis of right ankle Unspecified arthropathy, ankle and foot Arthritis of right ankle Unspecified arthropathy, ankle and foot Arthritis of right subtalar joint documented in this encounter Administered Medications Inactive Administered Medications - up to 3 most recent administrations Medication Order MAR Action Action Date Dose Rate Site 0.9% NaCl infusion at 100 mL/hr, Intravenous, CONTINUOUS, Starting on Sat11/02/20 at 0930, Until 11/05/20 at 1242 $ New Bag/Syringe 11/03/2020 5:28 PM CDT 100 mL/hr $ New Bag/Syringe 11/02/2020 4:03 PM CDT 100 mL /hr acetaminophen (Tylenol) tablet 500 mg 500 mg, Oral, EVERY 6 HOURS PRN, Fever, Mild Pain, Headache, Starting on Sat11/02/20 at 1420, Until 11/05/20 at 1242, Not to exceed 4000 mg of acetaminophen per day from all sources combined , Post-op $ Given 11/04/2020 10:09 AM CDT 500 mg amLODIPine (Norvasc) tablet 10 mg 10 mg, Oral, DAILY, First dose on Sat11/04/20 at 0900, Until Discontinued, Post-op $ Given 11/05/2020 9:16 AM CDT 10 mg $ Given 11/04/2020 8:34 AM CDT 10 mg aspirin tablet 325 mg 325 mg, Oral, 2 TIMES DAILY, First dose on Sat11/03/20 at 0900, Until Discontinued, Post-op $ Given 11/05/2020 9:15 AM CDT 325 mg $ Given 11/04/2020 7:57 PM CDT 325 mg $ Given 11/04/2020 8:34 AM CDT 325 mg bupivacaine 0.25% Select A-flow single catheter 270 ml infusion 675 mg, at 7 mL/hr, Injection, CONTINUOUS, Starting on Sat11/02/20 at 1230, Until 11/05/20 at 1242, To be administered by an ON-Q select A Flow Pump (7 ml/hr) Single catheter Fixed rate at 7ml/hr, Pre-op / Post-op bupivacaine PF (Marcaine PF) 0.5 % injection PRN, Starting on Sat11/02/20 at 1217, Until Sat11/02/20 at 1426, Intra-op $ Given 11/02/2020 12:17 PM CDT 10 mL Operative Site calcium carbonate (Tums) chew tablet 1 tablet 1 tablet, Oral, EVERY 2 HOURS PRN, Heartburn, Starting on Sat11/02/20 at 1420, Until 11/05/20 at 1242, Post-op ceFAZolin (Ancef) syringe 2,000 mg 2,000 mg (2 g), Intravenous, EVERY 8 HOURS, 3 doses, First dose on Sat11/02/20 at 2100, Last dose on Sat11/03/20 at 1300, Administer over 3-5 minutes., Indication for anti-infective therapy: Surgical prophylaxis, Post-op $ Given 11/03/2020 1:03 PM CDT 2,000 mg $ Given 11/03/2020 5:40 AM CDT 2,000 mg $ Given 11/02/2020 9:37 PM CDT 2,000 mg cyclobenzaprine (Flexeril) tablet 10 mg 10 mg, Oral, 3 TIMES DAILY PRN, Muscle Spasms, Starting on Sat11/02/20 at 1420, Until 11/05/20 at 1242, Post-op $ Given 11/05/2020 4:30 AM CDT 10 mg $ Given 11/04/2020 7:57 PM CDT 10 mg $ Given 11/04/2020 10:09 AM CDT 10 mg diphenhydrAMINE (Benadryl) capsule 25 mg 25 mg, Oral, EVERY 6 HOURS PRN, Itching, Starting on Sat11/02/20 at 1420, Until 11/05/20 at 1242, Post-op docusate sodium (Colace) capsule 100 mg 100 mg, Oral, DAILY, First dose on Sat11/02/20 at 1430, Until Discontinued, Post-op $ Given 11/05/2020 9:16 AM CDT 100 mg $ Given 11/04/2020 8:34 AM CDT 100 mg $ Given 11/02/2020 5:42 PM CDT 100 mg escitalopram (Lexapro) tablet 10 mg 10 mg, Oral, DAILY, First dose on [place]arena 11/03/20 at 0900, Until Discontinued, Post-op $ Given 11/05/2020 9:16 AM CDT 10 mg $ Given 11/04/2020 8:34 AM CDT 10 mg $ Given 11/03/2020 9:20 AM CDT 10 mg hydroCHLOROthiazide (Hydrodiuril) tablet 12.5 mg 12.5 mg, Oral, DAILY, First dose on Sat11/04/20 at 0900, Until Discontinued, Post-op $ Given 11/05/2020 9:16 AM CDT 12.5 mg $ Given 11/04/2020 8:34 AM CDT 12.5 mg HYDROmorphone (Dilaudid) 0.2 mg/ml [employer] Dose: 0.1 mg, [employer] Lockout Interval: 10 Minutes, One Hour Limit\Max Limit: 0.6 mg, Clinician Bolus (Load): Not Ordered, Intravenous, [employer], Starting on Sat11/02/20 at 1430, Until Sat11/03/20 at 2028, Initial [employer] settings must be verified by a Pharm D and a nurse., Post-op $ New Bag/Syringe 11/02/2020 3:30 PM CDT HYDROmorphone (Dilaudid) injection 0.5 mg 0.5 mg, Intravenous, EVERY 10 MIN PRN, Severe Pain, 4 doses, Starting on Sat11/02/20 at 1434, Until Sat11/02/20 at 1600, Maximum total of 4 doses If patient reaches max total dose, please consult anesthesiologist prior to further administration of pain meds. Hold pain meds if there are signs of hypoventilation., PACU $ Given 11/02/2020 3:00 PM CDT 0.5 mg $ Given 11/02/2020 2:41 PM CDT 0.5 mg lactated ringers infusion at 20 mL/hr, Intravenous, PRE-OP CONTINUOUS, Starting on Sat11/02/20 at 0730, Until Sat11/02/20 at 0848, Pre-op $ New Bag/Syringe 11/02/2020 8:03 AM CDT 20 mL/hr losartan (Cozaar) tablet 50 mg 50 mg, Oral, DAILY, First dose on Sat11/04/20 at 0900, Until Discontinued, Post-op $ Given 11/05/2020 9:15 AM CDT 50 mg $ Given 11/04/2020 8:34 AM CDT 50 mg naloxone (Narcan) 0.4 mg in 0.9% NaCl 10 mL injection 0.4 mg, Intravenous, PRN, decreased respiratory rate/decreased responsiveness, Starting on Sat11/02/20 at 1420, Until 11/05/20 at 1242, Mix 0.4 mg Naloxone in 9 mL Normal Saline for slow IV push. Administer dilute Naloxone solution IV very slowly (5 mL over 2 minutes) while observing the patient response and titrating to effect. If no response, call Rapid Response, continue IV Naloxone at the same rate up to a total of 0.8 mg or 20 mL of diluted Naloxone, and notify physician immediately. , Post-op ondansetron (Zofran) injection 4 mg 4 mg, Intravenous, EVERY 6 HOURS PRN, Nausea/Vomiting, Starting on Sat11/02/20 at 1420, Until 11/05/20 at 1242, Administer over 2 to 5 minutes., Post-op oxyCODONE-acetaminophen (Percocet) 10-325 MG tablet 1 tablet 1 tablet, Oral, EVERY 4 HOURS PRN, Severe Pain, Starting on Sat11/02/20 at 1420, Until 11/05/20 at 1242, Not to exceed 4000 mg of acetaminophen per day from all sources combined , Post-op $ Given 11/05/2020 9:16 AM CDT 1 tablet $ Given 11/05/2020 4:30 AM CDT 1 tablet $ Given 11/05/2020 12:11 AM CDT 1 tablet oxyCODONE-acetaminophen (Percocet) 5-325 MG tablet 1 tablet 1 tablet, Oral, EVERY 4 HOURS PRN, Moderate Pain, Starting on Sat11/02/20 at 1420, Until 11/05/20 at 1242, Not to exceed 4000 mg of acetaminophen per day from all sources combined , Post-op polyethylene glycol 3350 (Miralax) packet 17 g 17 g, Oral, DAILY, First dose on Sat11/02/20 at 1430, Until Discontinued, Mix in 8 ounces of water, juice, soda, coffee or tea prior to administration, Post-op $ Given 11/04/2020 8:35 AM CDT 17 g $ Given 11/02/2020 5:42 PM CDT 17 g documented in this encounter Active and Recently Administered Medications Times are shown in CDT. Scheduled Medication Order 11/03/2020 11/04/2020 11/05/2020 amLODIPine (Norvasc) tablet 10 mg 10 mg, Oral, DAILY, First dose on Sat11/04/20 at 0900, Until Discontinued, Post-op 0834 ($ Given - Provider: Brittany Hendrickson RN) 0916 ($ Given - Provider: Delmi Lara, GIOVANNY) aspirin tablet 325 mg 325 mg, Oral, 2 TIMES DAILY, First dose on Sat11/03/20 at 0900, Until Discontinued, Post-op 09 ($ Given - Provider: Alicia Stallworth RN)2056 ($ Given - Provider: Shayla Crowley RN) 0834 ($ Given - Provider: Brittany Hendrickson, GIOVANNY)1956 ($ Given - Provider: Valarie Charles RN) 0915 ($ Given - Provider: Delmi Lara, GIOVANNY) ceFAZolin (Ancef) syringe 2,000 mg (COMPLETED) 2,000 mg (2 g), Intravenous, EVERY 8 HOURS, 3 doses, First dose on Sat11/02/20 at 2100, Last dose on Sat11/03/20 at 1300, Administer over 3-5 minutes., Indication for anti-infective therapy: Surgical prophylaxis, Post-op 0540 ($ Given - Provider: Martha Arias RN)1303 ($ Given - Provider: Alicia Stallworth, GIOVANNY) docusate sodium (Colace) capsule 100 mg 100 mg, Oral, DAILY, First dose on Sat11/02/20 at 1430, Until Discontinued, Post-op 0920 (Not Administered - Provider: Alicia Stallworth RN - Reason: Refused-Patient) 0834 ($ Given - Provider: Brittany Hendrickson RN) 0916 ($ Given - Provider: Delmi Lara RN) escitalopram (Lexapro) tablet 10 mg 10 mg, Oral, DAILY, First dose on Sat11/03/20 at 0900, Until Discontinued, Post-op 0920 ($ Given - Provider: Alicia Stallworth RN) 0834 ($ Given - Provider: Brittany Hendrickson RN) 0916 ($ Given - Provider: Delmi Lara RN) hydroCHLOROthiazide (Hydrodiuril) tablet 12.5 mg 12.5 mg, Oral, DAILY, First dose on Sat11/04/20 at 0900, Until Discontinued, Post-op 0834 ($ Given - Provider: Brittany Hendrickson RN) 0916 ($ Given - Provider: Delmi Lara RN) losartan (Cozaar) tablet 50 mg 50 mg, Oral, DAILY, First dose on Sat11/04/20 at 0900, Until Discontinued, Post-op 0834 ($ Given - Provider: Brittany Hendrickson RN) 0915 ($ Given - Provider: Dlemi Lara RN) polyethylene glycol 3350 (Miralax) packet 17 g 17 g, Oral, DAILY, First dose on Sat11/02/20 at 1430, Until Discontinued, Mix in 8 ounces of water, juice, soda, coffee or tea prior to administration, Post-op 1142 (Not Administered - Provider: Alicia Stallworth RN - Reason: Refused-Patient) 0835 ($ Given - Provider: Brittany Hendrickson RN) 0916 (Not Administered - Provider: Delmi Lara RN - Reason: Refused-Patient) Continuous Medication Order 11/03/2020 11/04/2020 11/05/2020 0.9% NaCl infusion at 100 mL/hr, Intravenous, CONTINUOUS, Starting on Sat11/02/20 at 0930, Until 11/05/20 at 1242 1728 ($ New Bag/Syringe - Provider: Alicia Stallworth RN) bupivacaine 0.25% Select A-flow single catheter 270 ml infusion 675 mg, at 7 mL/hr, Injection, CONTINUOUS, Starting on Sat11/02/20 at 1230, Until 11/05/20 at 1242, To be administered by an ON-Q select A Flow Pump (7 ml/hr) Single catheter Fixed rate at 7ml/hr, Pre-op / Post-op 1100 (Stopped - Provider: Alicia Stallworth RN - Comment: tube pulled out during therapy) PRN Medication Order 11/03/2020 11/04/2020 11/05/2020 acetaminophen (Tylenol) tablet 500 mg 500 mg, Oral, EVERY 6 HOURS PRN, Fever, Mild Pain, Headache, Starting on Sat11/02/20 at 1420, Until 11/05/20 at 1242, Not to exceed 4000 mg of acetaminophen per day from all sources combined , Post-op 1009 ($ Given - Provider: Teri Laurent RN) calcium carbonate (Tums) chew tablet 1 tablet 1 tablet, Oral, EVERY 2 HOURS PRN, Heartburn, Starting on Sat11/02/20 at 1420, Until 11/05/20 at 1242, Post-op cyclobenzaprine (Flexeril) tablet 10 mg 10 mg, Oral, 3 TIMES DAILY PRN, Muscle Spasms, Starting on Sat11/02/20 at 1420, Until 11/05/20 at 1242, Post-op 2151 ($ Given - Provider: Valarie Charles RN) 1009 ($ Given - Provider: Teri Laurent RN)1957 ($ Given - Provider: Valarie Charles RN) 0430 ($ Given - Provider: Valarie Charles RN) diphenhydrAMINE (Benadryl) capsule 25 mg 25 mg, Oral, EVERY 6 HOURS PRN, Itching, Starting on Sat11/02/20 at 1420, Until 11/05/20 at 1242, Post-op naloxone (Narcan) 0.4 mg in 0.9% NaCl 10 mL injection 0.4 mg, Intravenous, PRN, decreased respiratory rate/decreased responsiveness, Starting on Sat11/02/20 at 1420, Until 11/05/20 at 1242, Mix 0.4 mg Naloxone in 9 mL Normal Saline for slow IV push. Administer dilute Naloxone solution IV very slowly (5 mL over 2 minutes) while observing the patient response and titrating to effect. If no response, call Rapid Response, continue IV Naloxone at the same rate up to a total of 0.8 mg or 20 mL of diluted Naloxone, and notify physician immediately. , Post-op ondansetron (Zofran) injection 4 mg 4 mg, Intravenous, EVERY 6 HOURS PRN, Nausea/Vomiting, Starting on Sat11/02/20 at 1420, Until 11/05/20 at 1242, Administer over 2 to 5 minutes., Post-op oxyCODONE-acetaminophen (Percocet) 10-325 MG tablet 1 tablet(Linked Group 1) 1 tablet, Oral, EVERY 4 HOURS PRN, Severe Pain, Starting on Sat11/02/20 at 1420, Until 11/05/20 at 1242, Not to exceed 4000 mg of acetaminophen per day from all sources combined , Post-op 0108 ($ Given - Provider: Martha Arias RN)0920 ($ Given - Provider: Alicia Stallworth RN)2056 ($ Given - Provider: Shayla Crowley RN) 0326 ($ Given - Provider: Valarie Charles RN)0753 ($ Given - Provider: Teri Vargas RN)1156 ($ Given - Provider: Brittany Hendrickson RN)1553 ($ Given - Provider: Delmi Lara RN)1957 ($ Given - Provider: Valarie Charles RN) 0011 ($ Given - Provider: Valarie Charles RN)0430 ($ Given - Provider: Valarie Charles RN)0916 ($ Given - Provider: Delmi Lara, GIOVANNY) oxyCODONE-acetaminophen (Percocet) 5-325 MG tablet 1 tablet(Linked Group 1) 1 tablet, Oral, EVERY 4 HOURS PRN, Moderate Pain, Starting on Sat11/02/20 at 1420, Until 11/05/20 at 1242, Not to exceed 4000 mg of acetaminophen per day from all sources combined , Post-op 0108 (See Alternative - Provider: Martha Arias RN)0920 (See Alternative - Provider: Alicia Stallworth RN)2056 (See Alternative - Provider: Shayla Crowley RN) 0326 (See Alternative - Provider: Valarie Charles RN)0753 (See Alternative - Provider: Teri Vargas RN)1156 (See Alternative - Provider: Brittany Hendrickson RN)1553 (See Alternative - Provider: Delmi Lara RN)1956 (See Alternative - Provider: Valarie Charles RN) 001 (See Alternative - Provider: Valarie Charles RN)043 (See Alternative - Provider: Valarie Charles RN)0916 (See Alternative - Provider: Delmi Lara RN) Linked Groups Order Group 1: oxyCODONE-acetaminophen (Percocet) 5-325 MG tablet 1 tabletJump to med 1 tablet, Oral, EVERY 4 HOURS PRN, Moderate Pain, Starting on Sat11/02/20 at 1420, Until 11/05/20 at 1242, Not to exceed 4000 mg of acetaminophen per day from all sources combined , Post-op Or oxyCODONE-acetaminophen (Percocet) 10-325 MG tablet 1 tabletJump to med 1 tablet, Oral, EVERY 4 HOURS PRN, Severe Pain, Starting on Sat11/02/20 at 1420, Until 11/05/20 at 1242, Not to exceed 4000 mg of acetaminophen per day from all sources combined , Post-op documented in this encounter 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
--- OUTSIDE RECORDS SUMMARY | 2024-04-14 04:41 | XMS_ITS | Encounter Summary ---
Author Organization [facility] Address [address] [facility] [place] [address] Care Team Providers Care Furniture Stainer Name Role Phone Marla Riggins MD Primary Care Provider [phone] Reason for Visit * Auth/Cert Specialty Diagnoses / Procedures Referred By Asmita alston Referred To Contact Diagnoses Arthritis of right subtalar joint ARTHRITIS OF RIGHT SUBTALAR JOINT Procedures ARTHRODESIS/FUSION TARSOMETATARSAL (FOOT) Referral ID Status Reason Start Date Expiration Date Visits Re quested Visits Authorized [id number] 1 1 Encounter Details Date Type Department Care Team (Latest Contact Info) Description 11/02/2020 6:47 AM CDT - 11/05/2020 11:30 AM CDT Hospital Encounter [facility] SHORT STAY UNIT [address] [place] [phone] Jeremy Frye, DO [address] [facility] [address] [place] [phone] Surgery General Discharge Disposition: Home or Self Care Social [...] as of this encounter Discharge Summaries * Marcleo Hall MD - 11/05/2020 11:30 AM CDT Orthopedic Surgery Discharge Summary 11/07/2020 Patient: Quita Almonte / 50 year old / female : 1970 CSN: [id number] Attending Physician: Jeremy Frye DO Consults: none [...] in place. Dictated by Shirley Suresh MD (residential collections). I, Dr. ANGELINA PENA have personally reviewed [...] fusion, ICBG, renita ??11/02/[address] Frye [facility] Course: Quita Almonte was admitted on 11/02/2020 [...] - Anticoagulation: aspirin 325mg twice daily - Sutures/[place]: dissolvable - Pain Medication: Percocet Narcotic Medication Patient Information You are being discharged/sent home with a prescription(s) for narcotic pain medicine (examples: Oxycodone, Hydrocodone, Roxicodone, Percocet, [place]). Our goal is to control your pain, [...] Tylenol. - Many pain medicines (such as [place] or Percocet) also contain Tylenol/Acetaminophen (this is [...] visit. Marcelo Hall MD 11/07/2020 8:12 AM [facility] Orthopedic Surgery office contact information: [facility] at [address], [place] [address] [place] [address] [facility] at [address], [address] [place] [address] documented in this encounter Discharge [...] subtalar arthritis - s/p: right subtalar fusion, renita KNIGHT 8/4/[address] Frye You may resume you [...] - Anticoagulation: aspirin 325mg twice daily - Sutures/[place]: dissolvable - Pain Medication: Percocet Narcotic Medication Patient Information You are being discharged/sent home with a prescription(s) for narcotic pain medicine (examples: Oxycodone, Hydrocodone, Roxicodone, Percocet, [place]). Our goal is to control your pain, [...] Tylenol. - Many pain medicines (such as [place] or Percocet) also contain Tylenol/Acetaminophen (this is [...] call before your visit. Marcelo Hall MD [facility] Orthopaedic office contact information: [facility] (at [facility]) [facility] [place] [address] [facility] [address] [facility], [place] [address] documented in this encounter Medications at Time [...] other CM needs identified Ariela Sears RN [phone] Care Coordination Nurse Textile Engineer * Delmi Lara RN - 11/05/2020 11:29 AM CDT Pt's transported pt home at ri. Pt was wheeled via w/c. All belongings in place. IA paper work given and education provided including follow ups. Pt informed that referral for WW has already been sent to deliver to her home. Nursing attempted to f/u with CM but did not hear back prior to dc. * Pelon Wilcox MD - 11/05/2020 6:52 AM CDT [facility] Orthopedic Foot and Ankle Surgery Daily Progress Note Quita Almonte, 50 year old, female : 1970 CSN: [id number] Primary Care Physician: Marla Riggins MD - [...] to schedule/confirm appointment, contact information listed below. [facility] Orthopedic Surgery office contact information: [facility] at [address], [place] [address], Second Floor [place], [place] [id number] [facility] at [address], [address] [place] [address] Pelon Wilcox MD 11/05/2020 6:52 AM * [...] Diana Nesbitt - 11/04/2020 1:14 PM CDT [facility] Physical Medicine and Rehabilitation PhysicalTherapy Progress Note Patient: Quita Almonte Med Record Number: [id number] Date of : 1970 Age: [age] year [...] Goals: Patient will perform bed mobility:??Independent (Met 8/6) Patient will transfer sit to/from stand:??Independent (Met 8/6) Patient will transfer bed to/from chair:??Independent (Met 8/6) Patient will ambulate??50??feet with Stand By Assist??and appropriate AD on least required O2 to maintain SpO2 >92% (Updated 11/04) Patient will ascend/descend??2??steps: Minimal assist (Met 11/04) ? Senior Living Goal(s): Patient to be independent/baseline with functional [...] with call light within reach and with RNDelmi aware. * Delmi Lara RN - 11/04/2020 12:36 PM CDT Assumed pt's care at 1230. * Eliane Basurto OT - 11/04/2020 9:30 AM CDT [facility] Physical Medicine and Rehabilitation Occupational Therapy Progress Note Patient: Quita Almonte Med Record Number: [id number] Date of : 1970 Age: [age] year [...] Air 2L NC Observations: GIOVANNY Soto and manager powerGIOVANNY Williamson aware of lower 02 sats. Left [...] will perform toileting With modified independence ?? Logistics Operations Director Goal:Patient to be independent/baseline with functional mobility and self care and be able to safely discharge to prior level of care If patient is discharged from the facility, this note serves as a discharge note if further occupational therapy visits did not occur. Following therapy session, patient left in patient bedside chair, with call light within reach, with Brittany BALTAZAR aware and with RN/CP rehab cues written on white board. * Isabel, Marcelo Henry MD - 11/04/2020 8:29 AM CDT [facility] Orthopedic Foot and Ankle Surgery Daily Progress Note Quita Almonte, 50 year old, female : 1970 CSN: [id number] Primary Care Physician: Marla Riggins MD - [...] subtalar arthritis - s/p: right subtalar fusion, renita KNIGHT 11/02/[address] Frye 1. Activity/Weight-bearing status: NWB RLE 2. Current Dispo: plan for DC tomorrow 3. Anticoagulation Status: ASA 325mg BID. Patient should be discharged on 35 days of DVT prophylaxis 4. Wound care: continue dry dressings 5. Diet: reg 6. PT/OT 7. Pain Control 8. Please page me or the Ortho Trauma pager (if after 5pm) via the hospital traveling plant operator with questionsor concerns. Please do not use [employer] secure chat to contact our team with patient care issues. Upon Discharge patient should follow up with Dr. Frye in 2 week(s) with the following imaging studies: XR ankle right 3 view. They will need to call our clinic to schedule/confirm appointment, contact information listed below. [facility] Orthopedic Surgery office contact information: [facility] at [address], [place] [address] [place] [address] [facility] at [address], [address] [place] [address] Marcelo Hall MD 11/04/2020 8:29 AM * Alicia Stallworth RN - 11/03/2020 4:42 PM CDT Pt worked with therapy again this pm. * Marjorie Bacon PT - 11/03/2020 4:08 PM CDT [facility] Physical Medicine and Rehabilitation PhysicalTherapy Progress Note Patient: Quita Almonte Med Record Number: [id number] Date of : 1970 Age: [age] year [...] 2 (limited due to IV pump and LAYBOY OPERATOR attached to bed) Deviations: NWB RLE; cues [...] will ascend/descend 2 steps: Minimal assist ?? Senior Living Goal(s): Patient to be independent/baseline with functional [...] ?? Pt needing WW. Referral sent to [employer] to deliver Please contact CM for any discharge needs Ariela Sears RN [phone] Care Coordination Nurse Textile Engineer * Alicia Stallworth RN - 11/03/2020 12:39 PM CDT Pt back to floor from dialysis pt would not let nurse do assessment or asked questions until she has eaten * Alicia Stallworth RN - 11/03/2020 10:10 AM CDT Pt back to bed after being up in chair . rotho foot ankle aware on q ball out of rt hip . * Marjorie Bacon, PT - 11/03/2020 9:45 AM CDT [facility] Physical Medicine and Rehabilitation Physical Therapy Initial Evaluation Note Patient: Quita Almonte Med Record Number: [id number] Date of : 1970 Age: [age] year [...] Patient will ascend/descend 2 steps: Minimal assist Senior Living Goal(s): Patient to be independent/baseline with functional [...] on, with call light within reach, with Joanie BALTAZAR aware and with RN/CP rehab cues written [...] . meds to start tomorrow * Eliane Basurto, OT - 11/03/2020 8:51 AM CDT [facility] Physical Medicine and Rehabilitation Occupational Therapy Initial Evaluation Note Patient: Quita Almonte Med Record Number: [id number] Date of : 1970 Age: [age] year [...] Patient will perform toileting With modified independence Logistics Operations Director Goal: Patient to be independent/baseline with functional [...] call with any questions or concerns. José Miugel Grayson 11/03/20 * Marcelo Hall MD - 11/03/2020 7:23 AM CDT [facility] Orthopedic Trauma Surgery Daily Progress Note Quita Almonte, 50 year old, female : 1970 CSN: [id number] Primary Care Physician: Marla Riggins MD - [...] fusion, IC, renita 11/02/[address] Frye 1. Activity/Weight-bearing status: NWB RLE 2. Current Dispo: possible DC t 3. Anticoagulation Status: ASA 325mg BID. Patient should be discharged on 35 days of DVT prophylaxis 4. Antibiotics: periop ancef 5. Wound care: continue dry dressings 6. Diet: reg 7. PT/OT 8. Pain Control 9. Please page the Ortho Trauma pager (via the hospital traveling plant operator) with questions or concerns. Please do not use [employer] secure chat to contact our team with patient care issues. Upon Discharge patient should follow up with Dr. Frye in 2 week(s) with the following imaging studies: XR ankle right 3 view. They will need to call our clinic to schedule/confirm appointment, contact information listed below. [facility] Orthopedic Surgery office contact information: [facility] at [address] [place] [address], [place] [address] [facility] at [facility] [address], [address] [place] [address] Marcelo Hall MD 11/03/2020 7:23 AM * [...] area. Pt arrived with iv fluids and perfusionist infusing. o2 on at 2l per nc. Patient at bedside. Spoke with ortho foot and ankle regarding pt bp 18/110 and pt did not take hyzaar this am . Can restart today if bp remains high. * Marcelo Hall MD - 11/02/2020 9:24 AM CDT Orthopedic Surgery Postoperative Check Quita Almonte, 50 year old, female : 1970 CSN: [id number] Admitted: 11/02/2020 6:47 AM Subjective Nausea/vomiting: none [...] 50 year old, female : 1970 CSN: [id number] Diagnosis/Procedures 1.) 50F with right subtalar arthritis [...] or gastroc recession. SURGEON: Jeremy Frye DO FRONT END DRIVER: Dr. Hall. ANESTHESIA: General anesthetic. ESTIMATED BLOOD [...] was taken to the operating room at [facility] on the 02 of November and [...] we were able to slide a lamina applications developer underneath the neck of the talus as [...] anterior iliac crest site, and beginning 1.5 cm proximal to the ASIS and extending 4 cm along the patient's outer table, we then incised down through skin and subcutaneous tissue directly down onto the gluteal fascia, and using electrocautery, weelevated directly over the superior cortex of the iliac crest and small Hohmann was inserted, and at this time, then using a small flexible osteotome, we then osteotomized through each end of the patient's incision site through the superior cortex and then along the outer table and this allowed us t o hinge this superior cortex medially and we repositioned the Hohmann retractor and then were able to harvest 15 mL of rich cancellous graft, and after copious irrigation, we then inserted an On-Q pain pump into the patient's inner table defect site, and then after applying 2 small drill holes, onethrough the superior cortex of the patient's crest and one along the outer table, we then carefullythen closed down this whole hinged portion of [...] then closed using a subcuticular 3-0 Monocryl suture.A well-padded compressive dressing was applied and the iliac crest graft was now taken to the back table. We now turned our attention back to the patient's right hindfoot, and at this time, we now put the tourniquet back on after using the Esmarch and we then irrigated out the patient's right hindfo ot wound and then spent the next 10 [...] threaded guide pins, one from the plantar tuberof the calcaneus in a vertical fashion into the dome of the talus and the second terminal guidewirewas advanced again percutaneously through the plantar surface of the cortex of the calcaneus up towards the head of the talus extraarticularly, and after seating these guidewires and confirming on C-arm their good position, we then subsequently underwent standard AO technique and we predrilled the patient's plantar portion of the calcaneus and then inserted 2 fully threaded compression screws with excellent rigid fixation. We removed the guidewires. Final C-arm views demonstrated very nice alignment, and at this time, we now turned our attention to the patient's posterior cap right at the level of the musculotendinous region of the Achilles and a 4 cm longitudinal mid portion incision was carried down through skin and subcutaneous tissues and we then gently incised through the superficialcompartment fascia after very carefully retracting the sural nerve laterally out of harm's way, andat this time, we then using a [place] elevator, we were then able to then mobilize the patient's Achilles mid tendinous region, and then from medial to lateral, we then incised just through the gastrocfascia and we were able to nicely stretch through the Achilles, and at this time, after copious irrigation, we then carefully closed the superficial compartment fascia using 0 Vicryl and we closed the subcutaneous tissues using 2-0 Monocryl in an interrupted fashion. The skin edges were closed using 3-0 Monocryl in a horizontal mattress fashion. We now turned our attention back to the patient's right hindfoot, and carefully in a subperiosteal subcutaneous closure over a Hemovac drain, we then closed the patient's deep extensile incision site carefully using a 2-0 Monocryl in an interrupted fashion and the skin edges were closed using 3-0 Monocryl in a horizontal mattress fashion, and at this time, a well-padded sterile compressive Dung Escamilla bulky dressing with a posterior splint was applied and the patient was stabilized from the operating table and taken to the recovery room. All spo nge, needle and instrument counts were correct. Jeremy Frye DO [id number] Doc ID: [id number] Job ID: [id number] * Brief Op Note - Marcelo Hall MD - 11/02/2020 9:22 AM CDT Orthopedic Surgery Brief Operative Note Patient: Quita Almonte, [id number] Date of Procedure: 11/02/2020 Pre-operative Diagnosis: right ankle arthritis Post-operative Diagnosis: Same Procedure Procedure(s): RIGHT SUBTALAR ARTHRODESIS Anesthesia type: general ETT Surgeons/Assistants: Surgeon(s) and Role: * Jeremy Frye DO - Primary * Marcelo Hall MD - Resident - Assisting OR Staff: Pathology Technologist: Angelica Hernandez Maintenance Chief: Dasia Easton RN Relief Scrub: Hermelinda Cancino Scrub Person: Cliff Ng Maintenance Chief: Sebastian, Marilin M, RN Complications:none Findings: See operative report Estimated Blood Loss: Please see Anesthesia notes Fluid intake and Urine output: Please see Anesthesia notes Implant(s): Implant Name Type Inv. Item Serial No. Sewing Machine Operator Paper Bags Lot No. LRB No. Used Action Screw 6.5Mm 7.9Mm 2.9Mm 85Mm Ft Rvrs Cut Screw 6.5Mm 7.9Mm 2.9Mm 85Mm Ft Rvrs Cut Synthes [facility] Right1 Implanted Screw 6.5Mm 7.9Mm 2.9Mm 70Mm Ft Rvrs Cut Screw 6.5Mm 7.9Mm 2.9Mm 70Mm Ft Rvrs Cut Synthes [employer] Right1 Implanted Specimens Removed: n/a Dispo: 1. [...] CBC W/O DIFFERENTIAL (11/05/2020 1:23 AM T) WBC 10.9(H) 3.5 - 10.5 10? 3 /uL 11/05/2020 1:40 AM [facility] RBC 3.31(L) 3.80 - 5.20 10? 6 /uL 11/05/2020 1:40 AM [facility] Hemoglobin 10.3(L) 12.0 - 15.6 g/dL 11/05/2020 1:40 AM [facility] Hematocrit 31.7(L) 35.0 - 45.0 % 11/05/2020 1:40 AM [facility] MCV 95.8 80.7 - 98.3 fL 11/05/2020 1:40 AM [facility] MCH 31.1 26.7 - 34.0 pg 11/05/2020 1:40 AM [facility] MCHC 32.5 30.8 - 35.9 g/dL 11/05/2020 1:40 AM [facility] Platelet Count 174 150 - 400 10? 3 /uL 11/05/2020 1:40 AM [facility] RDW-SD 45.2 36.0 - 50.0 fL 11/05/2020 1:40 AM [facility] RDW-CV 12.9 11.2 - 14.8 % 11/05/2020 1:40 AM [facility] MPV 10.2 9.4 - 12.9 fL 11/05/2020 1:40 AM [facility] nRBC Absolute 0.00 0 10? 3 /uL 11/05/2020 1:40 AM [facility] nRBC Auto 0.0 0 /100 WBC 11/05/2020 1:40 AM [facility] Blood BLOOD SPECIMEN / Unknown Lab Venipuncture / Unknown 11/05/2020 1:23 AM CDT 11/05/2020 1:36 AM T Jeremy Frye DO LAB - HEMATOLOGY ORD ERABLES [facility] [address] [place] [address], [facility] [phone] * (ABNORMAL) CBC W/O DIFFERENTIAL (11/04/2020 2:47 AM T) WBC 14.8(H) 3.5 - 10.5 10? 3 /uL 11/04/2020 3:01 AM [facility] RBC 3.44(L) 3.80 - 5.20 10? 6 /uL 11/04/2020 3:01 AM [facility] Hemoglobin 10.7(L) 12.0 - 15.6 g/dL 11/04/2020 3:01 AM [facility] Hematocrit 32.3(L) 35.0 - 45.0 % 11/04/2020 3:01 AM [facility] MCV 93.9 80.7 - 98.3 fL 11/04/2020 3:01 AM [facility] MCH 31.1 26.7 - 34.0 pg 11/04/2020 3:01 AM [facility] MCHC 33.1 30.8 - 35.9 g/dL 11/04/2020 3:01 AM [facility] Platelet Count 264 150 - 400 10? 3 /uL 11/04/2020 3:01 AM [facility] RDW-SD 43.3 36.0 - 50.0 fL 11/04/2020 3:01 AM [facility] RDW-CV 12.6 11.2 - 14.8 % 11/04/2020 3:01 AM [facility] MPV 9.2(L) 9.4 - 12.9 fL 11/04/2020 3:01 AM [facility] nRBC Absolute 0.00 0 10? 3 /uL 11/04/2020 3:01 AM [facility] nRBC Auto 0.0 0 /100 WBC 11/04/2020 3:01 AM [facility] Blood BLOOD SPECIMEN / Unknown Lab Venipuncture / Unknown 11/04/2020 2:47 AM CDT 11/04/2020 2:55 AM CDT Jeremy Frye DO LAB - HEMATOLOGY ORD ERABLES [facility] [address] [place] [address], [facility] [phone] * (ABNORMAL) CBC W/O DIFFERENTIAL (11/03/2020 2:11 AM CDT) WBC 17.6(H) 3.5 - 10.5 10? 3 /uL 11/03/2020 3:03 AM [facility] Comment:All CBC parameters h ave been checked. RBC 3.63(L) 3.80 - 5.20 10? 6 /uL 11/03/2020 3:03 AM [facility] Hemoglobin 11.3(L) 12.0 - 15.6 g/dL 11/03/2020 3:03 AM [facility] Hematocrit 34.5(L) 35.0 - 45.0 % 11/03/2020 3:03 AM [facility] MCV 95.0 80.7 - 98.3 fL 11/03/2020 3:03 AM [facility] MCH 31.1 26.7 - 34.0 pg 11/03/2020 3:03 AM [facility] MCHC 32.8 30.8 - 35.9 g/dL 11/03/2020 3:03 AM [facility] Platelet Count 303 150 - 400 10? 3 /uL 11/03/2020 3:03 AM [facility] RDW-SD 43.7 36.0 - 50.0 fL 11/03/2020 3:03 AM [facility] RDW-CV 12.5 11.2 - 14.8 % 11/03/2020 3:03 AM [facility] MPV 9.5 9.4 - 12.9 fL 11/03/2020 3:03 AM [facility] nRBC Absolute 0.00 0 10? 3 /uL 11/03/2020 3:03 AM [facility] nRBC Auto 0.0 0 /100 WBC 11/03/2020 3:03 AM [facility] Blood BLOOD SPECIMEN / Unknown Lab Venipuncture / Unknown 11/03/2020 2:11 AM CDT 11/03/2020 2:44 AM CDT Jeremy Frye DO LAB - HEMATOLOGY ORD ERABLES [facility] [address] [place] [address], [facility] [phone] * (ABNORMAL) BASIC METABOLIC PANEL (CALCIUM TOTAL) (11/03/2020 2:11 AM CDT) BUN 23 7 - 26 mg/dL 11/03/2020 3:30 AM [facility] Creatinine 0.98(H) 0.56 - 0.96 mg/dL 11/03/2020 3:30 AM [facility] Comment:Confirmed by repeat analysis. Sodium 135(L) 136 - 145 mmol/L 11/03/2020 3:30 AM [facility] Potassium 4.4 3.5 - 4.5 mmol/L 11/03/2020 3:30 AM [facility] Chloride 98 98 - 107 mmol/L 11/03/2020 3:30 AM [facility] CO2 24 22 - 29 mmol/L 11/03/2020 3:30 AM [facility] Glucose 177(H) 70 - 115 mg/dL 11/03/2020 3:30 AM [facility] Calcium 8.6 8.4 - 10.2 mg/dL 11/03/2020 3:30 AM [facility] Anion Gap 17 8 - 18 11/03/2020 3:30 AM [facility] BUN/Creatinine Ratio 23 7 - 23 11/03/2020 3:30 AM [facility] Osmolality Calculated 288 270 - 300 mOsm/kg 11/03/2020 3:30 AM [facility] eGFR by CKD-EPI 66(L) >=90 mL/min/1.7 3 m2 11/03/2020 3:30 AM [facility] Blood BLOOD SPECIMEN / Unknown Lab Venipuncture / Unknown 11/03/2020 2:11 AM CDT 11/03/2020 2:45 AM CDT Jeremy Frye DO LAB - CHEMISTRY [facility]AT[facility] [address] [place] [address], [place] [phone] * BLOOD TYPE VERIFICATION (11/02/2020 9:50 PM CDT) ABO Rh O NEG 11/02/2020 10:37 PM CDT [facility] Blood Bank BLOOD SPECIMEN / Unknown Lab Venipuncture / Unknown 11/02/2020 9:50 PM CDT 11/02/2020 9:54 PM CDT Jeremy Frye DO LAB - BLOOD BANK ORD KULWINDER Performing Organization Address [facility] Co de Phone Number [facility] [address] [place] [phone], [place] [phone] * TYPE + SCREEN PANEL (11/02/2020 6:51 PM CDT) Antibody Screen NEG 8:09 PM CDT [facility] ABO Rh O NEG 11/02/2020 8:09 PM CDT [facility] Blood Bank BLOOD SPECIMEN / Unknown Lab Venipuncture / Unknown 11/02/2020 6:51 PM CDT 11/02/2020 7:29 PM CDT Jeremy Frye DO LAB - BLOOD BANK ORD ERABLES Performing Organization Address City/[facility]/ZIP Co de Phone Number [facility] [address] [place] [address], [place] [phone] * XR ANKLE RIGHT 3VW OR MORE [...] in place. Dictated by Shirley Suresh MD (residential collections). Dr. ANGELINA Campbell have personally reviewed and [...] in place. Dictated by Shirley Suresh MD (residential collections). Dr. ANGELINA Campbell have personally reviewed and interpreted this examination/study. This report was electronically signed by ANGELINA PENA on 11/03/2020 12:14 PM . Jeremy Frye DO DIAGNOSTIC IMAGING O RDERABLES * FL DIAMANTE SURGERY (11/02/2020 2:30 PM CDT) Narrative [facility] RADIOLOGY - 11/02/2020 2:32 PM CDT Fluoroscopy was used for this exam in the OR. Please see the Operative report. Jeremy Frye DO FLUOROSCOPY ORDERABL ES Performing Organization Address City/[facility]/ZIP Co de Phone Number [facility] RADIOLOGY * BLOOD TYPE VERIFICATION (11/02/2020 8:15 AM CDT) ABO Rh O NEG 11/02/2020 8:5 1 AM CDT [facility] LAB Blood Bank BLOOD SPECIMEN / Unknown Lab Venipuncture / Unknown 11/02/2020 8:15 AM CDT 11/02/2020 8:19 AM CDT Jeremy Frye DO LAB - BLOOD BANK ORD ERABLES Performing Organization Address [facility] Co de Phone Number [facility] [address] [place] [address], [place] [phone] * TYPE + SCREEN PANEL (11/02/2020 8:00 AM CDT) Antibody Screen NEG 8:51 AM CDT [facility] ABO Rh O NEG 11/02/2020 8:51 AM CDT [facility] Blood Bank BLOOD SPECIMEN / Unknown Venipuncture / Unknown 11/02/2020 8:00 AM CDT 11/02/2020 8:08 AM CDT Jeremy Frye DO LAB - BLOOD BANK ORD ERABLES Performing Organization Address [facility] Co de Phone Number [facility] BLOOD BANK LAB [address] [place] [address], [place] [phone] * PT-INR [facility] (11/02/2020 7:58 AM CDT) PT 12.2 12.1 - 14.8 Seconds 11/02/2020 8:22 AM CDT [facility] INR 0.9 See Comment 11/02/2020 8:22 AM CDT [facility] Comment:The suggested therap eutic range for standard coumadin (warfarin) therapy is an INR of 2.0-3.0. For high-risk patients (Mechanical Mitral Valve Prosthesis, etc.), the suggested prophylactic therapeutic range is an INR of 2.5-3.5. Blood BLOOD SPECIMEN / Unknown Venipuncture / Unknown 11/02/2020 7:58 AM CDT 11/02/2020 8:07 AM CDT José Miguel Quinteros MD LAB - COAGULATION OR DERABLES [facility] [address] [place] [address], [facility] [phone] * (ABNORMAL) CBC W AUTO DIFFERENTIAL (11/02/2020 7:58 AM CDT) WBC 5.5 3.5 - 10.5 10? 3 /uL 11/02/2020 8:21 AM [facility] RBC 4.82 3.80 - 5.20 10? 6 /uL 11/02/2020 8:21 AM [facility] Hemoglobin 14.4 12.0 - 15.6 g/dL 11/02/2020 8:21 AM [facility] Hematocrit 44.0 35.0 - 45.0 % 11/02/2020 8:21 AM [facility] MCV 91.3 80.7 - 98.3 fL 11/02/2020 8:21 AM [facility] MCH 29.9 26.7 - 34.0 pg 11/02/2020 8:21 AM [facility] MCHC 32.7 30.8 - 35.9 g/dL 11/02/2020 8:21 AM [facility] Platelet Count 355 150 - 400 10? 3 /uL 11/02/2020 8:21 AM [facility] RDW-SD 41.1 36.0 - 50.0 fL 11/02/2020 8:21 AM [facility] RDW-CV 12.4 11.2 - 14.8 % 11/02/2020 8:21 AM [facility] MPV 9.2(L) 9.4 - 12.9 fL 11/02/2020 8:21 AM [facility] nRBC Absolute 0.00 0 10? 3 /uL 11/02/2020 8:21 AM [facility] nRBC Auto 0.0 0 /100 WBC 11/02/2020 8:21 AM [facility] Neutrophils % 49.8 35.0 - 70.0 % 11/02/2020 8:21 AM [facility] Lymphocytes % 37.2 20.0 - 43.0 % 11/02/2020 8:21 AM [facility] Monocytes % 7.4 5.0 - 13.0 % 11/02/2020 8:21 AM [facility] Eosinophils % 3.4 0.0 - 6.0 % 11/02/2020 8:21 AM [facility] Basophil % 1.5 0.0 - 2.0 % 11/02/2020 8:21 AM [facility] Neutrophils Absolute 2.7 1.6 - 7.0 10? 3 /uL 11/02/2020 8:21 AM [facility] Lymphocyte Absolute 2.1 1.1 - 3.9 10? 3 /uL 11/02/2020 8:21 AM [facility] Monocytes Absolute 0.41 0.26 - 1.07 10? 3 /uL 11/02/2020 8:21 AM [facility] Eosinophils Absolute 0.19 0.00 - 0.47 10? 3 /uL 11/02/2020 8:21 AM [facility] Basophils Absolute 0.08 0.00 - 0.08 10? 3 /uL 11/02/2020 8:21 AM [facility] Immature Granulocytes % 0.7 0.0 - 1.0 % 11/02/2020 8:21 AM [facility] Immature Granulocytes Absolute 0.04 11/02/2020 8:21 AM [facility] Blood BLOOD SPECIMEN / Unknown Venipuncture / Unknown 11/02/2020 7:58 AM CDT 11/02/2020 8:[address] [facility] José Miguel Quinteros MD LAB - HEMATOLOGY ORD ERABLES [facility] [address] [place] [address], [facility] [phone] * (ABNORMAL) BASIC METABOLIC PANEL (CALCIUM TOTAL) (11/02/2020 7:[address] [facility]) BUN 12 7 - 26 mg/dL 11/02/2020 8:39 AM [facility] Creatinine 0.55(L) 0.56 - 0.96 mg/dL 11/02/2020 8:39 AM [facility] Sodium 135(L) 136 - 145 mmol/L 11/02/2020 8:39 AM [facility] Potassium 3.8 3.5 - 4.5 mmol/L 11/02/2020 8:39 AM [facility] Chloride 95(L) 98 - 107 mmol/L 11/02/2020 8:39 AM [facility] CO2 30(H) 22 - 29 mmol/L 11/02/2020 8:39 AM [facility] Glucose 109 70 - 115 mg/dL 11/02/2020 8:39 AM [facility] Calcium 9.9 8.4 - 10.2 mg/dL 11/02/2020 8:39 AM [facility] Anion Gap 14 8 - 18 11/02/2020 8:39 AM [facility] BUN/Creatinine Ratio 22 7 - 23 11/02/2020 8:39 AM [facility] Osmolality Calculated 280 270 - 300 mOsm/kg 11/02/2020 8:39 AM [facility] eGFR by CKD-EPI >90 >=90 mL/min/1.7 3 m2 11/02/2020 8:39 AM [facility] Blood BLOOD SPECIMEN / Unknown Venipuncture / Unknown 11/02/2020 7:58 AM T 11/02/2020 8:[address] [facility] José Miguel Quinteros MD LAB - CHEMISTRY KATIA Menendez Organization Address City/State/ZIP Co de Phone Number [facility] [address] [place] [address], [facility] [phone] documented in this encounter Visit Diagnoses Diagnosis Trigger finger of right thumb- Primary Transaminitis Nonspecific elevation of levels of transaminase or lactic acid dehydrogenase (LDH) Arthritis of right ankle Unspecified arthropathy, ankle and foot Arthritis of right subtalar joint Right leg pain Pain in limb documented in this encounter Administered Medications Inactive [...] Fixed rate at 7ml/hr, Pre-op / Post-op calcium carbonate (Tums) chew tablet 1 tablet [...] Spasms, Starting on Sat11/02/20 at 1420, Until Sat11/05/20 at 1242, Post-op $ Given 11/05/2020 4:30 AM CDT 10 mg $ Given 11/04/2020 7:57 PM CDT 10 mg $ Given 11/04/2020 10:09 AM CDT 10 mg diphenhydrAMINE (Benadryl) capsule 25 mg 25 mg, Oral, EVERY 6 HOURS PRN, Itching, Starting on Sat11/02/20 at 1420, Until Sat11/05/20 at 1242, Post-op docusate sodium (Colace) capsule [...] CDT 12.5 mg HYDROmorphone (Dilaudid) 0.2 mg/ml LAYBOY OPERATOR LAYBOY OPERATOR Dose: 0.1 mg, LAYBOY OPERATOR Lockout Interval: 10 Minutes, One Hour Limit\Max Limit: 0.6 mg, Clinician Bolus (Load): Not Ordered, Intravenous, LAYBOY OPERATOR, Starting on Sat11/02/20 at 1430, Until Macarena 11/03/20 at 9, Initial LAYBOY OPERATOR settings must be verified by a Pharm [...] ($ Given - Provider: Delmi Lara RN) aspirin tablet 325 mg 325 mg, Oral, 2 TIMES DAILY, First dose on Sat11/03/20 at 0900, Until Discontinued, Post-op 0920 ($ Given - Provider: Alicia Stallworth RN)2056 ($ Given - Provider: Shayla Crowley RN) 0834 ($ Given - Provider: Brittany Hendrickson, GIOVANNY)1956 ($ Given - Provider: Valarie Charles RN) 0915 ($ Given - Provider: Delmi Lara RN) ceFAZolin (Ancef) syringe 2,000 mg (COMPLETED) 2,000 mg (2 g), Intravenous, EVERY 8 HOURS, 3 doses, First dose on Sat11/02/20 at 2100, Last dose on Sat11/03/20 at 1300, Administer over 3-5 minutes., Indication for anti-infective therapy: Surgical prophylaxis, Post-op 0540 ($ Given - Provider: Martha Arias RN)1303 ($ Given - Provider: Alicia Stallworth RN) docusate sodium (Colace) capsule 100 mg 100 [...] Hendrickson RN) 0915 ($ Given - Provider: Delmi Lara RN) polyethylene glycol 3350 (Miralax) packet [...] Stallworth RN)2056 ($ Given - Provider: Shayla Crowley, GIOVANNY) 0326 ($ Given - Provider: Valarie Charles, GIOVANNY)0753 ($ Given - Provider: Teri Vargas RN)1156 ($ Given - Provider: Brittany Hendrickson RN)1553 ($ Given - Provider: Delmi Lara, GIOVANNY)195 ($ Given - Provider: Valarie Charles RN) 0011 ($ Given - Provider: Valarie Charles RN)0430 ($ Given - Provider: Valarie Charles RN)0916 ($ Given - Provider: Delmi Lara RN) oxyCODONE-acetaminophen (Percocet) 5-325 MG tablet 1 tablet(Linked [...] RN)1553 (See Alternative - Provider: Delmi Lara RN)195 (See Alternative - Provider: Valarie Charles RN) 0011 (See Alternative - Provider: Valarie Charles RN)0430 (See Alternative - Provider: Valarie Charles RN)0916 [...] 4 HOURS PRN, Severe Pain, Starting on 11/02/20 at 1420, Until 11/05/20 at 1242, Not to exceed 4000 mg of acetaminophen per day from all sources combined , Post-op documented in this encounter Care Teams Furniture Stainer Relationship Specialty Start Date End Date Marla Riggins MD PCP - General Internal Medicine 08/15/20 documented as of this encounter
--- OUTSIDE RECORDS SUMMARY | 2024-04-14 04:41 | XMS_ITS | Encounter Summary ---
Author Organization [facility] Address [address] [place] [address] Care Team Providers Care Supply Chain Vice President Name Role Phone Marla Riggins MD Primary Care Provider [phone] Encounter Details Date Type Department Care Team (Latest Contact Info) Description 10/31/2020 8:00 AM CDT - 10/31/2020 11:59 PM CDT Hospital Encounter [facility] PAT [address] [place] [id number] Jeremy Frye, DO [address] [facility] [address] [place] [id number] Discharge Disposition: Home or Self Care Anesthesia Record Procedure Summary Procedure Name Responsible [...] Room 1415 ANPTO2 1424 An Stop Meds * Agents No agents on file. * Blood No blood administrations on file. Lines, Drains, and Airways Type Details Placement Removal Drain 11/02/20; 1219; Dr. frye; 1; Round; Accordian; 10fr; Bard; CWS 400 Closed Wound Suction Kit; [id number]; [id number]; Right; Hip; General Anesthesia 11/02/20 1219 by Dasia Easton RN Drain 11/02/20; 1309; Alaina santoro MD; 2; Accordian; 10fr; Bard; CWS 400 Closed Wound Suction Kit; [id number]; [id number]; Right; Ankle; General Anesthesia 11/02/20 1309 by Marilin Cortes RN Peripheral IV Date: 11/02/20; Time : 801; Orientation: Left; Placed By: GIOVANNY Reyna 11/02/20 [...] Marilin Cortes RN 11/02/20 1412 by Marilin Cortes RN Procedural Site (Incision) 11/02/20; 1332; Right; Leg; [...] Sign Reading Time Taken Comments Blood Pressure 116/73 10/31/2020 8:05 AM CDT Pulse 96 10/31/2020 8:05 AM CDT Temperature 36.4 ??C (97.6 ??F) 10/31/2020 8:05 AM CD T Respiratory Rate 18 10/31/2020 8:05 AM CDT Oxygen Saturation 98% 10/31/2020 8:05 AM CDT Inhaled Oxygen Concentration - - Weight 86.5 kg (190 lb 12.8 oz) 10/31/2020 8:05 AM CDT Height 157.5 cm (5' 2 ) 10/31/2020 8:05 AM CDT Body Mass Index 34.9 10/31/2020 8:05 AM CDT documented in this encounter Medications at Time [...] on filedocumented in this encounter Care Teams Supply Chain Vice President Relationship Specialty Start Date End Date Marla Riggins MD PCP - General Internal Medicine 08/15/20 documented as of this encounter
--- OUTSIDE RECORDS SUMMARY | 2024-04-14 04:41 | XMS_ITS | Encounter Summary ---
Author Organization [facility] Address [address] [place] [address] Care Team Providers Care Rail Car Driver Name Role Phone Marla Riggins MD Primary Care Provider [phone] Encounter Details Date Type Department Care Team (Late st Contact Info) Description 11/19/2020 Orders Only [facility] - Orthopedics [address] [facility] [place] [address] Jeremy Frye, [address] [place] [address] [address] [place] [address] Post-traumatic osteoarthritis of right ankle Social History [...] Diagnosis Post-traumatic osteoarthritis of right ankle- Primary Post-traumatic osteoarthritis of right ankle documented in this encounter Care Teams Rail Car Driver Relationship Specialty Start Date End Date Marla Riggins MD PCP - General Internal Medicine 08/15/20 documented as of this encounter
--- NOTE | 2024-04-24 13:32 | WPDHOLTEREM ---
Holter/Event Monitor Holter/Event Monitor Date of procedure: 04/07/24 Holter/Event Procedure: Event Monitor Indications: Palpitations Conclusion: 1. 14 days event monitor on 04/07/24. 2. Predominant rhythm is sinus rhythm. HR range 60-197 bpm; average HR 80 bpm. 3. There are rare premature supraventricular complexes. There is 1 episode of supraventricular tachycardia at 197 bpm lasting 8 beats. 4. There are rare premature ventricular complexes. No ventricular tachycardia. 5. No significant pauses greater than 3 seconds. 6. Patient reports 1 episode of symptom of chest pain, shortness of breath and irregular beats which demonstrates artifact.
== END 2024-04-07 10:12 | disposition home or self-care (01) ==
LOC: CHSCARD 10:14
PROVIDERS: PCP Internal Medicine; Visit Provider Internal Medicine
DX: R00.0 Tachycardia, unspecified (principal); R00.2 Palpitations
CPT/HCPCS: 93246

== ENCOUNTER 2024-04-30 09:23 | Outpatient (CLI) | payer OTHER, SELFPAY ==
--- OUTSIDE RECORDS SUMMARY | 2024-04-30 09:56 | XMS_ITS | Clinical Summary ---
Author Organization [facility] Address [address], [facility] [address] [place] [address] Phone Care Team Providers Care Care Director Rn Name Role Phone Marla Riggins MD Primary Care Provider Allergies Active Allergy Reactions Criticality Noted Date [...] Most Recently Relevant to Health Maintenance Insurance [facility] Care Teams Care Director Rn Relationship Specialty Start Date End Date Marla Riggins MD [address] [place] [address] PCP - General Internal Medicine 08/17/16
--- OUTSIDE RECORDS SUMMARY | 2024-04-30 09:57 | XMS_ITS | Referral Summary ---
Author Organization [facility] Address [address] [place] [address] Care Team Providers Care Engineer Byproduct Name Role Phone Marla Riggins MD Primary Care Provider [phone] Source Comments [facility],non-owned Affiliates and Associated Physician Practices is amultiple site organization consisting of ambulatory clinics and hospital sitesin [place], [place], [place] and [place]. This disclosure is being madepursuant to the Care Everywhere program and may not contain all information available regarding this patient. Last updated 17.[facility] Allergies Active Allergy Reactions Criticality Noted Date [...] Immunizations Name Administration Dates Next Due Covid Blaze.io primary monoval ent 12+ yr 0.3mL Purple [...] PT exercises Medical Devices Implanted Type Area Urology Physician Device Identifier Shelf Expiration Date Model / Serial / Lot Screw 6.5mm 7.9mm 2.9mm 85mm Ft Rvrs Cut Implanted:Qty: 1 on 11/02/2020 by Jeremy Frye, DO at [facility] Right: Ankle [employer]ynthe[employer] [id number] / / Screw 6.5mm 7.9mm 2.9mm 70mm Ft Rvrs Cut Implanted:Qty: 1 on 11/02/2020 by Jeremy Frye, DO at [facility] Right: Ankle [employer]ynthe[employer] 208.470 / / Explanted Type Area Urology Physician Device Identifier Shelf Expiration Date Model / Serial / Lot Wire K .062in 6in Fx 2 Troc Explanted:Qty: 2 on 11/02/2020 by Jeremy Frye DO at [facility] Right: Foot [employer] 07/25/2024 [id number] / / [id number] Screw 6.5mm 7.9mm 2.9mm 90mm Ft Rvrs Cut Explanted:Qty: 1 on 11/02/2020 by Jeremy Frye DO at [facility] Right: Ankle [employer] 208.474 / / Procedures Procedure Name Priority Date/Time Associated Diagnosis Comments BASIC METABOLIC PANEL (CALCIUM TOTAL) AM Draw 11/03/2020 2:11 AM CDT Arthritis of right ankle from Last 3 Months or Most Recently Relevant to Health Maintenance Results * (ABNORMAL) BASIC METABOLIC PANEL (CALCIUM TOTAL) (11/03/2020 2:11 AM CDT) BUN 23 7 - 26 mg/dL 11/03/2020 3:30 AM [facility] Creatinine 0.98(H) 0.56 - 0.96 mg/dL 11/03/2020 3:30 AM [facility] Comment:Confirmed by repeat analysis. Sodium 135(L) 136 - 145 mmol/L 11/03/2020 3:30 AM [facility] Potassium 4.4 3.5 - 4.5 mmol/L 11/03/2020 3:30 AM [facility] Chloride 98 98 - 107 mmol/L 11/03/2020 3:30 AM [facility] CO2 24 22 - 29 mmol/L 11/03/2020 3:30 AM [facility] Glucose 177(H) 70 - 115 mg/dL 11/03/2020 3:30 AM [facility] Calcium 8.6 8.4 - 10.2 mg/dL 11/03/2020 3:30 AM [facility] Anion Gap 17 8 - 18 11/03/2020 3:30 AM CDT [facility] BUN/Creatinine Ratio 23 7 - 23 11/03/2020 3:30 AM T [facility] Osmolality Calculated 288 270 - 300 mOsm/kg 11/03/2020 3:30 AM [facility] eGFR by CKD-EPI 66(L) >=90 mL/min/1.7 3 m2 11/03/2020 3:30 AM T [facility] Blood BLOOD SPECIMEN / Unknown Lab Venipuncture / Unknown 11/03/2020 2:11 AM CDT 11/03/2020 2:45 AM CDT Jeremy Frye DO LAB - CHEMISTRY ORDE [facility] [address] [place] [address], [facility] [phone] from Last 3 Months or Most Recently Relevant to Health Maintenance Advance Directives * Full Code (Latest Code Status on File) Date Activated Date Inactivated Comments 11/02/2020 2:20 PM 11/05/2020 12:47 PM * Full Code Date Activated Date Inactivated Comments 11/02/2020 7:17 AM 11/02/2020 2:20 PM * Full Code Date Activated Date Inactivated Comments 11/02/2020 7:17 AM 11/02/2020 7:17 AM Care Teams Engineer Byproduct Relationship Specialty Start Date End Date Marla Riggins MD PCP - General Internal Medicine 08/15/20
--- OUTSIDE RECORDS SUMMARY | 2024-04-30 09:57 | XMS_ITS | Clinical Summary ---
Author Organization [facility] [employer] Address [address] [facility] [place] [address] Care Team Providers Care Storage Wharfage Clerk Name Role Phone Marla Riggins MD Primary Care Provider [phone] Source Comments [facility] [employer],non-owned Affiliates and Associated Physician Practices is amultiple site organization consisting of ambulatory clinics and hospital sitesin [place], [place], [place] and [place]. This disclosure is being madepursuant to the Care Everywhere program and may not contain all information available regarding this patient. Last updated 17.[facility] Allergies Active Allergy Reactions Criticality Noted [...] Immunizations Name Administration Dates Next Due Covid FirstString primary monoval ent 12+ yr 0.3mL Purple [...] of 3 - 19+ 3-dose series) 1987 PNEUMOCOCCAL VACCINE 50+ (1 of 1 - PCV) 2018 ZOSTER VACCINE (1 of 2) 2018 SCREENING FOR DIABETES 11/04/2023 , 11/02/2020 COVID-19 VACCINE (3 - 2023-2 5 season) 2023 07/04/2020, 06/12/2020 INFLUENZA VACCINE (#1) 2023 DEPRESSION SCREENING 04/01/2024 HIB VACCINE Aged Out No longer eligi ble based on patient's age to complete this topic HPV VACCINE Aged Out No longer eligi ble based on patient's age to complete this topic MENINGOCOCCAL (Group B) VACCINE Aged Out No longer eligible b ased on patient's age to complete this topic [...] PT exercises Medical Devices Implanted Type Area Top Cager Device Identifier Shelf Expiration Date Model / Serial / Lot Screw 6.5mm 7.9mm 2.9mm 85mm Ft Rvrs Cut Implanted:Qty: 1 on 11/02/2020 by Jeremy Frye DO at [facility] Right: Ankle [employer]ynthes [employer] [id number] / / Screw 6.5mm 7.9mm 2.9mm 70mm Ft Rvrs Cut Implanted:Qty: 1 on 11/02/2020 by Jeremy Frye DO at [facility] Right: Ankle [employer]ynthes [employer] [id number] / / Explanted Type Area Top Cager Device Identifier Shelf Expiration Date Model / Serial / Lot Wire K .062in 6in Fx 2 Troc Explanted:Qty: 2 on 11/02/2020 by Jeremy Frye DO at [facility] Right: Foot [employer] 07/25/2024 [id number] / / [id number] Screw 6.5mm 7.9mm 2.9mm 90mm Ft Rvrs Cut Explanted:Qty: 1 on 11/02/2020 by Jeremy Frye DO at [facility] Right: Ankle [employer] [id number] / / Procedures Procedure Name Priority Date/Time Associated Diagnosis Comments BASIC METABOLIC PANEL (CALCIUM TOTAL) AM Draw 11/03/2020 2:11 AM CDT Arthritis of right ankle from Last 3 Months or Most Recently Relevant to Health Maintenance Results * (ABNORMAL) BASIC METABOLIC PANEL (CALCIUM TOTAL) (11/03/2020 2:11 AM CDT) BUN 23 7 - 26 mg/dL 11/03/2020 3:30 AM [facility] Creatinine 0.98(H) 0.56 - 0.96 mg/dL 11/03/2020 3:30 AM [facility] Comment:Confirmed by repeat analysis. Sodium 135(L) 136 - 145 mmol/L 11/03/2020 3:30 AM [facility] Potassium 4.4 3.5 - 4.5 mmol/L 11/03/2020 3:30 AM [facility] Chloride 98 98 - 107 mmol/L 11/03/2020 3:30 AM [facility] CO2 24 22 - 29 mmol/L 11/03/2020 3:30 AM [facility] Glucose 177(H) 70 - 115 mg/dL 11/03/2020 3:30 AM [facility] Calcium 8.6 8.4 - 10.2 mg/dL 11/03/2020 3:30 AM [facility] Anion Gap 17 8 - 18 11/03/2020 3:30 AM [facility] BUN/Creatinine Ratio 23 7 - 23 11/03/2020 3:30 AM [facility] Osmolality Calculated 288 270 - 300 mOsm/kg 11/03/2020 3:30 AM [facility] eGFR by CKD-EPI 66(L) >=90 mL/min/1.7 3 m2 11/03/2020 3:30 AM [facility] Blood BLOOD SPECIMEN / Unknown Lab Venipuncture / Unknown 11/03/2020 2:11 AM CDT 11/03/2020 2:45 AM T Jeremy Frye DO LAB - CHEMISTRY [place] [facility] [address] [place] [address], [facility] [phone] from Last 3 Months or Most Recently Relevant to Health Maintenance Advance Directives * Full Code (Latest Code Status on File) Date Activated Date Inactivated Comments 11/02/2020 2:20 PM 11/05/2020 12:47 PM * Full Code Date Activated Date Inactivated Comments 11/02/2020 7:17 AM 11/02/2020 2:20 PM * Full Code Date Activated Date Inactivated Comments 11/02/2020 7:17 AM 11/02/2020 7:17 AM Care Teams Storage Wharfage Clerk Relationship Specialty Start Date End Date Marla Riggins MD PCP - General Internal Medicine 08/15/20
--- OUTSIDE RECORDS SUMMARY | 2024-04-30 09:57 | XMS_ITS | Patient Health Summary ---
Author Organization [facility] Address [address] [address] Care Team Providers Care Dynamometer Mechanic Name Role Phone Marla Riggins MD Primary Care Provider [phone] Note from [facility],non-owned Affiliates and Associated Physician Practices is amultiple site organization consisting of ambulatory clinics and hospital sitesin [place], [place], [place] and [place]. This disclosure is being madepursuant to the Care Everywhere program and may not contain all information available regarding this patient. Last updated 17.[facility] Allergies * Penicillins(Rash) -Medium Criticality Medications [...] PM CDT Medical Devices Implanted Type Area Application Support Device Identifier Shelf Expiration Date Model / Serial / Lot Screw 6.5mm 7.9mm 2.9mm 85mm Ft Rvrs Cut Implanted:Qty: 1 on 11/02/2020 by Jeremy Frye DO at [facility] Right: Ankle [employer] [id number] / / Screw 6.5mm 7.9mm 2.9mm 70mm Ft Rvrs Cut Implanted:Qty: 1 on 11/02/2020 by Jeremy Frye DO at [facility] Right: Ankle Synthes [facility] 208.470 / / Explanted Type Area Application Support Device Identifier Shelf Expiration Date Model / Serial / Lot Wire K .062in 6in Fx 2 Troc Explanted:Qty: 2 on 11/02/2020 by Jeremy Frye DO at [facility] Right: Foot [employer] 07/25/2024 [id number] / / [id number] Screw 6.5mm 7.9mm 2.9mm 90mm Ft Rvrs Cut Explanted:Qty: 1 on 11/02/2020 by Jeremy Frye DO at [facility] Right: Ankle [employer] [id number] / / [...] 10.5 10? 3 /uL 11/05/2020 1:40 AM [facility] RBC 3.31(L) 3.80 - 5.20 10? 6 /uL 11/05/2020 1:40 AM [facility] Hemoglobin 10.3(L) 12.0 - 15.6 g/dL 11/05/2020 1:40 AM [facility] Hematocrit 31.7(L) 35.0 - 45.0 % 11/05/2020 1:40 AM [facility] MCV 95.8 80.7 - 98.3 fL 11/05/2020 1:40 AM [facility] MCH 31.1 26.7 - 34.0 pg 11/05/2020 1:40 AM [facility] MCHC 32.5 30.8 - 35.9 g/dL 11/05/2020 1:40 AM [facility] Platelet Count 174 150 - 400 10? 3 /uL 11/05/2020 1:40 AM [facility] RDW-SD 45.2 36.0 - 50.0 fL 11/05/2020 1:40 AM [facility] RDW-CV 12.9 11.2 - 14.8 % 11/05/2020 1:40 AM [facility] MPV 10.2 9.4 - 12.9 fL 11/05/2020 1:40 AM [facility] nRBC Absolute 0.00 0 10? 3 /uL 11/05/2020 1:40 AM [facility] nRBC Auto 0.0 0 /100 WBC 11/05/2020 1:40 AM [facility] Blood BLOOD SPECIMEN / Unknown Lab Venipuncture / Unknown 11/05/2020 1:23 AM CDT 11/05/2020 1:36 AM CDT Jeremy Frye DO LAB - HEMATOLOGY ORD ERABLES [facility] [address] [place] [address], [facility] [phone] * (ABNORMAL) BASIC METABOLIC PANEL (CALCIUM TOTAL) (11/03/2020 2:11 AM CDT) Only the most recent of2 resultswithin the time period is included. BUN 23 7 - 26 mg/dL 11/03/2020 3:30 AM [facility] Creatinine 0.98(H) 0.56 - 0.96 mg/dL 11/03/2020 3:30 AM [facility] Comment:Confirmed by repeat analysis. Sodium 135(L) 136 - 145 mmol/L 11/03/2020 3:30 AM [facility] Potassium 4.4 3.5 - 4.5 mmol/L 11/03/2020 3:30 AM [facility] Chloride 98 98 - 107 mmol/L 11/03/2020 3:30 AM [facility] CO2 24 22 - 29 mmol/L 11/03/2020 3:30 AM [facility] Glucose 177(H) 70 - 115 mg/dL 11/03/2020 3:30 AM [facility] Calcium 8.6 8.4 - 10.2 mg/dL 11/03/2020 3:30 AM [facility] Anion Gap 17 8 - 18 11/03/2020 3:30 AM [facility] BUN/Creatinine Ratio 23 7 - 23 11/03/2020 3:30 AM [facility] Osmolality Calculated 288 270 - 300 mOsm/kg 11/03/2020 3:30 AM [facility] eGFR by CKD-EPI 66(L) >=90 mL/min/1.7 3 m2 11/03/2020 3:30 AM CDT [facility] Blood BLOOD SPECIMEN / Unknown Lab Venipuncture / Unknown 11/03/2020 2:11 AM CDT 11/03/2020 2:45 AM CDT Jeremy Frye DO LAB - CHEMISTRY [facility] [address] [place] [address], [place] [phone] * BLOOD TYPE VERIFICATION (11/02/2020 9:50 PM CDT) Only the most recent of2 resultswithin the time period is included. ABO Rh O NEG 11/02/2020 10:37 PM CDT [facility] Blood Bank BLOOD SPECIMEN / Unknown Lab Venipuncture / Unknown 11/02/2020 9:50 PM CDT 11/02/2020 9:54 PM CDT Jeremy Frye DO LAB - BLOOD BANK ORD ERABLES [facility] [address] [place] [address], [place] [phone] * TYPE + SCREEN PANEL (11/02/2020 6:51 PM CDT) Only the most recent of2 resultswithin the time period is included. Antibody Screen NEG 8:09 PM CDT [facility] ABO Rh O NEG 11/02/2020 8:09 PM CDT [facility] Blood Bank BLOOD SPECIMEN / Unknown Lab Venipuncture / Unknown 11/02/2020 6:51 PM CDT 11/02/2020 7:29 PM CDT Jeremy Frye DO LAB - BLOOD BANK ORD ERABLES [facility] [address] [place] [address], [place] [phone] * Peripheral Nerve Block (11/02/2020 3:22 PM [...] MD GENERAL ANESTHESIA O RDERABLES * FL [facility] SURGERY (11/02/2020 2:30 PM CDT) Narrative [facility] RADIOLOGY - 11/02/2020 2:32 PM CDT Fluoroscopy was used for this exam in the OR. Please see the Operative report. Jeremy Jessica Frye DO FLUOROSCOPY ORDERABL ES [facility] * ETT LINE PERFORMABLE (11/02/2020 9:46 AM CDT) Narrative Mary Zeng Anes Asst - 11/02/2020 9:46 AM CDT Mary Zeng Anes Asst ? 11/02/2020 ??9:47 AM Endotracheal Tube Placement: ? Patient Location: OR. Intubation Event Date/Time: ??11/02/2020 9:22 AM Procedure: intubation (60136). Procedure Section: ?? Sedation: under general anesthesia. [...] MD GENERAL ANESTHESIA O RDERABLES * PT-INR [facility] (11/02/2020 7:58 AM CDT) PT 12.2 12.1 - 14.8 Seconds 11/02/2020 8:22 AM CDT [facility] INR 0.9 See Comment 11/02/2020 8:22 AM CDT [facility] Comment:The suggested therap eutic range for standard coumadin (warfarin) therapy is an INR of 2.0-3.0. For high-risk patients (Mechanical Mitral Valve Prosthesis, etc.), the suggested prophylactic therapeutic range is an INR of 2.5-3.5. Blood BLOOD SPECIMEN / Unknown Venipuncture / Unknown 11/02/2020 7:58 AM CDT 11/02/2020 8:07 AM CDT José Miguel Quinteros MD LAB - COAGULATION OR DERABLES [facility] [address] [place] [address], [facility] [phone] * (ABNORMAL) CBC W AUTO DIFFERENTIAL (11/02/2020 7:58 AM CDT) WBC 5.5 3.5 - 10.5 10? 3 /uL 11/02/2020 8:21 AM [facility] RBC 4.82 3.80 - 5.20 10? 6 /uL 11/02/2020 8:21 AM [facility] Hemoglobin 14.4 12.0 - 15.6 g/dL 11/02/2020 8:21 AM [facility] Hematocrit 44.0 35.0 - 45.0 % 11/02/2020 8:21 AM [facility] MCV 91.3 80.7 - 98.3 fL 11/02/2020 8:21 AM [facility] MCH 29.9 26.7 - 34.0 pg 11/02/2020 8:21 AM [facility] MCHC 32.7 30.8 - 35.9 g/dL 11/02/2020 8:21 AM [facility] Platelet Count 355 150 - 400 10? 3 /uL 11/02/2020 8:21 AM [facility] RDW-SD 41.1 36.0 - 50.0 fL 11/02/2020 8:21 AM [facility] RDW-CV 12.4 11.2 - 14.8 % 11/02/2020 8:21 AM [facility] MPV 9.2(L) 9.4 - 12.9 fL 11/02/2020 8:21 AM [facility] nRBC Absolute 0.00 0 10? 3 /uL 11/02/2020 8:21 AM [facility] nRBC Auto 0.0 0 /100 WBC 11/02/2020 8:21 AM [facility] Neutrophils % 49.8 35.0 - 70.0 % 11/02/2020 8:21 AM [facility] Lymphocytes % 37.2 20.0 - 43.0 % 11/02/2020 8:21 AM [facility] Monocytes % 7.4 5.0 - 13.0 % 11/02/2020 8:21 AM [facility] Eosinophils % 3.4 0.0 - 6.0 % 11/02/2020 8:21 AM [facility] Basophil % 1.5 0.0 - 2.0 % 11/02/2020 8:21 AM [facility] Neutrophils Absolute 2.7 1.6 - 7.0 10? 3 /uL 11/02/2020 8:21 AM [facility] Lymphocyte Absolute 2.1 1.1 - 3.9 10? 3 /uL 11/02/2020 8:21 AM [facility] Monocytes Absolute 0.41 0.26 - 1.07 10? 3 /uL 11/02/2020 8:21 AM [facility] Eosinophils Absolute 0.19 0.00 - 0.47 10? 3 /uL 11/02/2020 8:21 AM [facility] Basophils Absolute 0.08 0.00 - 0.08 10? 3 /uL 11/02/2020 8:21 AM [facility] Immature Granulocytes % 0.7 0.0 - 1.0 % 11/02/2020 8:21 AM [facility] Immature Granulocytes Absolute 0.04 11/02/2020 8:21 AM [facility] Blood BLOOD SPECIMEN / Unknown Venipuncture / Unknown 11/02/2020 7:58 AM CDT 11/02/2020 8:09 AM T José Miguel Quinteros MD LAB - HEMATOLOGY ORD ERABLES [facility] [address] [place] [address], [facility] [phone] Care Teams Dynamometer Mechanic Relationship Specialty Start Date End Date Marla Riggins MD PCP - General Internal Medicine 08/15/20
== END 2024-04-30 09:24 | disposition home or self-care (01) ==
LOC: CHSCARD 09:25
PROVIDERS: PCP Internal Medicine; Visit Provider Internal Medicine
DX: R06.02 Shortness of breath (principal); R94.2 Abnormal results of pulmonary function studies
CPT/HCPCS: 94060; 94726; 94729

== ENCOUNTER 2024-05-04 08:07 | Outpatient (CLI) | payer OTHER, SELFPAY ==
--- NOTE | 2024-05-04 08:12 | EST_ITS ---
Patient Info Name: Taylor Garcia Age: 53 years : 1970 Gender: Female Ht: 63 in Wt: 176 lbs BSA: 1.91 m2 HR: 89 bpm BP: 160 / 94 mmHg Heart Rhythm: Sinus Rhythm Technical Quality: Good Exam Date: 05/04/2024 9:01 AM Exam Location: Echo Lab Patient Status: Outpatient Admit Date: 05/04/2024 Staff Ordering Physician: Marla Riggins MD Attending Provider: Marla Riggins MD Exam Type: CA stress gabo w NM Study Info A regadenoson stress test was performed. History/Risk Factors Hypertension: Yes Dyslipidemia: Yes Summary 1. 1. Negative lexiscan stress test for ischemic ST changes by ECG criteria. 2. 2. Baseline hypertension. 3. 3. Nuclear scan to follow and will be reported separately. Please correlate with it. Protocol: LEXISCAN Stress ECG Details Stage: REST Duration (min): 1 min : 43 sec HR (bpm): 89 SBP (mmHg): 160 DBP (mmHg): 94 Stage: REST Duration (min): 15 min : 41 sec HR (bpm): 86 SBP (mmHg): 160 DBP (mmHg): 94 Stage: STAGE 1 Duration (min): 0 min : 23 sec HR (bpm): 88 SBP (mmHg): 160 DBP (mmHg): 94 Stage: RECOVERY Duration (min): 0 min : 36 sec HR (bpm): 116 SBP (mmHg): 160 DBP (mmHg): 94 Stage: RECOVERY Duration (min): 1 min : 36 sec HR (bpm): 114 SBP (mmHg): 160 DBP (mmHg): 94 Stage: RECOVERY Duration (min): 2 min : 36 sec HR (bpm): 110 SBP (mmHg): 176 DBP (mmHg): 84 Stage: RECOVERY Duration (min): 3 min : 36 sec HR (bpm): 107 SBP (mmHg): 157 DBP (mmHg): 83 Stage: RECOVERY Duration (min): 4 min : 36 sec HR (bpm): 107 SBP (mmHg): 160 DBP (mmHg): 87 Stage: RECOVERY Duration (min): 5 min : 36 sec HR (bpm): 104 SBP (mmHg): 159 DBP (mmHg): 87 Stage: RECOVERY Duration (min): 6 min : 20 sec HR (bpm): 102 SBP (mmHg): 159 DBP (mmHg): 87 Rest HR: 86 bpm Peak HR: 119 bpm Rest Sys BP: 160 mmHg Peak Sys BP: 176 mmHg Max Pred HR: 165 bpm % Max Pred HR: 72 % Target HR: 140 bpm Max RPP: 20,944 bpm*mmHg BP Response: Normal blood pressure response Termination Reason: Completed Protocol Cardiac Symptoms: None Total Time: 0 min : 23 sec Rest Diaz BP: 94 mmHg Peak Diaz BP: 84 mmHg Total Dose: 0.4 mg Resting ECG Normal sinus rhythm - normal ECG. Stress ECG No abnormal ST/T wave changes. Arrhythmias No arrhythmias were observed during the examination. Report Signatures
--- OUTSIDE RECORDS SUMMARY | 2024-05-04 08:15 | XMS_ITS | Referral Summary ---
Author Organization [facility] Address [address] [place] [address] Care Team Providers Care Sales And Marketing Manager Name Role Phone Marla Riggins MD Primary Care Provider [phone] Source Comments [facility],non-owned Affiliates and Associated Physician Practices is amultiple site organization consisting of ambulatory clinics and hospital sitesin [place], [place], [place] and [place]. This disclosure is being madepursuant to the Care Everywhere program and may not contain all information available regarding this patient. Last updated 17.[facility] Allergies Active Allergy Reactions Criticality Noted Date [...] Immunizations Name Administration Dates Next Due Covid Estately primary monoval ent 12+ yr 0.3mL Purple [...] PT exercises Medical Devices Implanted Type Area Technical Instructor Device Identifier Shelf Expiration Date Model / Serial / Lot Screw 6.5mm 7.9mm 2.9mm 85mm Ft Rvrs Cut Implanted:Qty: 1 on 11/02/2020 by Jeremy Frye, DO at [facility] Right: Ankle [employer] [id number] / / Screw 6.5mm 7.9mm 2.9mm 70mm Ft Rvrs Cut Implanted:Qty: 1 on 11/02/2020 by Jeremy Frye, DO at [facility] Right: Ankle [employer] 208.470 / / Explanted Type Area Technical Instructor Device Identifier Shelf Expiration Date Model / Serial / Lot Wire K .062in 6in Fx 2 Troc Explanted:Qty: 2 on 11/02/2020 by Jeremy Frye DO at [facility] Right: Foot [employer] 07/25/2024 [id number] / / [id number] Screw 6.5mm 7.9mm 2.9mm 90mm Ft Rvrs Cut Explanted:Qty: 1 on 11/02/2020 by Jeremy Frye DO at [facility] Right: Ankle [employer] [id number] / / Procedures Procedure Name Priority Date/Time Associated Diagnosis Comments BASIC METABOLIC PANEL (CALCIUM TOTAL) AM Draw 11/03/2020 2:11 AM CDT Arthritis of right ankle from Last 3 Months or Most Recently Relevant to Health Maintenance Results * (ABNORMAL) BASIC METABOLIC PANEL (CALCIUM TOTAL) (11/03/2020 2:11 AM CDT) BUN 23 7 - 26 mg/dL 11/03/2020 3:30 AM [facility] Creatinine 0.98(H) 0.56 - 0.96 mg/dL 11/03/2020 3:30 AM [facility] Comment:Confirmed by repeat analysis. Sodium 135(L) 136 - 145 mmol/L 11/03/2020 3:30 AM [facility] Potassium 4.4 3.5 - 4.5 mmol/L 11/03/2020 3:30 AM [facility] Chloride 98 98 - 107 mmol/L 11/03/2020 3:30 AM [facility] CO2 24 22 - 29 mmol/L 11/03/2020 3:30 AM [facility] Glucose 177(H) 70 - 115 mg/dL 11/03/2020 3:30 AM [facility] Calcium 8.6 8.4 - 10.2 mg/dL 11/03/2020 3:30 AM [facility] Anion Gap 17 8 - 18 11/03/2020 3:30 AM CDT [facility] BUN/Creatinine Ratio 23 7 - 23 11/03/2020 3:30 AM T [facility] Osmolality Calculated 288 270 - 300 mOsm/kg 11/03/2020 3:30 AM [facility] eGFR by CKD-EPI 66(L) >=90 mL/min/1.7 3 m2 11/03/2020 3:30 AM T [facility] Blood BLOOD SPECIMEN / Unknown Lab Venipuncture / Unknown 11/03/2020 2:11 AM CDT 11/03/2020 2:45 AM CDT Jeremy Frye DO LAB - CHEMISTRY [facility] [address] [place] [address], [facility] [phone] from Last 3 Months or Most Recently Relevant to Health Maintenance Advance Directives * Full Code (Latest Code Status on File) Date Activated Date Inactivated Comments 11/02/2020 2:20 PM 11/05/2020 12:47 PM * Full Code Date Activated Date Inactivated Comments 11/02/2020 7:17 AM 11/02/2020 2:20 PM * Full Code Date Activated Date Inactivated Comments 11/02/2020 7:17 AM 11/02/2020 7:17 AM Care Teams Sales And Marketing Manager Relationship Specialty Start Date End Date Marla Riggnis MD PCP - General Internal Medicine 08/15/20
--- OUTSIDE RECORDS SUMMARY | 2024-05-04 08:15 | XMS_ITS | Clinical Summary ---
Author Organization [facility] Address [address], [facility] [address] [place] [address] Phone Care Team Providers Care Commercial Sales Representative Name Role Phone Marla Riggins MD Primary Care Provider [phone] Allergies Active Allergy Reactions Criticality Noted Date [...] Most Recently Relevant to Health Maintenance Insurance [facility] Care Teams Commercial Sales Representative Relationship Specialty Start Date End Date Marla Riggins MD [address] [place] [address] PCP - General Internal Medicine 08/17/16
--- OUTSIDE RECORDS SUMMARY | 2024-05-04 08:15 | XMS_ITS | Clinical Summary ---
Author Organization [facility] Address [address] [place] [address] Care Team Providers Care Cloth Mender Name Role Phone Marla Riggins MD Primary Care Provider [phone] Source Comments [facility],non-owned Affiliates and Associated Physician Practices is amultiple site organization consisting of ambulatory clinics and hospital sitesin [place], [place], [place] and [place]. This disclosure is being madepursuant to the Care Everywhere program and may not contain all information available regarding this patient. Last updated 17.[facility] Allergies Active Allergy Reactions Criticality Noted [...] Immunizations Name Administration Dates Next Due Covid Prompt.ly primary monoval ent 12+ yr 0.3mL Purple [...] PT exercises Medical Devices Implanted Type Area Insurance Sales Producer Device Identifier Shelf Expiration Date Model / Serial / Lot Screw 6.5mm 7.9mm 2.9mm 85mm Ft Rvrs Cut Implanted:Qty: 1 on 11/02/2020 by Jeremy Frye DO at [facility] Right: Ankle [employer] [id number] / / Screw 6.5mm 7.9mm 2.9mm 70mm Ft Rvrs Cut Implanted:Qty: 1 on 11/02/2020 by Jeremy Frye DO at [facility] Right: Ankle [employer] 208.470 / / Explanted Type Area Insurance Sales Producer Device Identifier Shelf Expiration Date Model / Serial / Lot Wire K .062in 6in Fx 2 Troc Explanted:Qty: 2 on 11/02/2020 by Jeremy Frye DO at [facility] Right: Foot [employer] 07/25/2024 [id number] / / [id number] Screw 6.5mm 7.9mm 2.9mm 90mm Ft Rvrs Cut Explanted:Qty: 1 on 11/02/2020 by Jeremy Frye DO at [facility] Right: Ankle [employer] [id number] [...] 7 - 26 mg/dL 11/03/2020 3:30 AM [facility] Creatinine 0.98(H) 0.56 - 0.96 mg/dL 11/03/2020 3:30 AM [facility] Comment:Confirmed by repeat analysis. Sodium 135(L) 136 - 145 mmol/L 11/03/2020 3:30 AM [facility] Potassium 4.4 3.5 - 4.5 mmol/L 11/03/2020 3:30 AM [facility] Chloride 98 98 - 107 mmol/L 11/03/2020 3:30 AM [facility] CO2 24 22 - 29 mmol/L 11/03/2020 3:30 AM [facility] Glucose 177(H) 70 - 115 mg/dL 11/03/2020 3:30 AM [facility] Calcium 8.6 8.4 - 10.2 mg/dL 11/03/2020 3:30 AM [facility] Anion Gap 17 8 - 18 11/03/2020 3:30 AM [facility] BUN/Creatinine Ratio 23 7 - 23 11/03/2020 3:30 AM [facility] Osmolality Calculated 288 270 - 300 mOsm/kg 11/03/2020 3:30 AM [facility] eGFR by CKD-EPI 66(L) >=90 mL/min/1.7 3 m2 11/03/2020 3:30 AM [facility] Blood BLOOD SPECIMEN / Unknown Lab Venipuncture / Unknown 11/03/2020 2:11 AM CDT 11/03/2020 2:45 AM T Jeremy Frye DO LAB - CHEMISTRY [facility] [address] [place] [address], [facility] [phone] from Last 3 Months or Most Recently Relevant to Health Maintenance Advance Directives * Full Code (Latest Code Status on File) Date Activated Date Inactivated Comments 11/02/2020 2:20 PM 11/05/2020 12:47 PM * Full Code Date Activated Date Inactivated Comments 11/02/2020 7:17 AM 11/02/2020 2:20 PM * Full Code Date Activated Date Inactivated Comments 11/02/2020 7:17 AM 11/02/2020 7:17 AM Care Teams Cloth Mender Relationship Specialty Start Date End Date Marla Riggins MD PCP - General Internal Medicine 08/15/20
--- OUTSIDE RECORDS SUMMARY | 2024-05-04 08:15 | XMS_ITS | Patient Health Summary ---
Author Organization [facility] Address [address] [place] [address] Care Team Providers Care Hydrometeorological Technician Name Role Phone Marla Riggins MD Primary Care Provider [phone] Note from [facility][note 3],non-owned Affiliates and Associated Physician Practices is amultiple site organization consisting of ambulatory clinics and hospital sitesin [place], [place], [place]. This disclosure is being madepursuant to the Care Everywhere program and may not contain all information available regarding this patient. Last updated 17.[facility] Allergies * Penicillins(Rash) -Medium Criticality Medications [...] PM CDT Medical Devices Implanted Type Area Postal Service Clerk Device Identifier Shelf Expiration Date Model / Serial / Lot Screw 6.5mm 7.9mm 2.9mm 85mm Ft Rvrs Cut Implanted:Qty: 1 on 11/02/2020 by Jeremy Frye DO at [facility] Right: Ankle [employer] [id number] / / Screw 6.5mm 7.9mm 2.9mm 70mm Ft Rvrs Cut Implanted:Qty: 1 on 11/02/2020 by Jeremy Frye DO at [facility] Right: Ankle Synthes [facility] 208.470 / / Explanted Type Area Postal Service Clerk Device Identifier Shelf Expiration Date Model / Serial / Lot Wire K .062in 6in Fx 2 Troc Explanted:Qty: 2 on 11/02/2020 by Jeremy Frye DO at [facility] Right: Foot [employer] 07/25/2024 [id number] / / [id number] Screw 6.5mm 7.9mm 2.9mm 90mm Ft Rvrs Cut Explanted:Qty: 1 on 11/02/2020 by Jeremy Frye DO at [facility] Right: Ankle [employer] 208.474 / / [...] 10.5 10? 3 /uL 11/05/2020 1:40 AM [facility] RBC 3.31(L) 3.80 - 5.20 10? 6 /uL 11/05/2020 1:40 AM [facility] Hemoglobin 10.3(L) 12.0 - 15.6 g/dL 11/05/2020 1:40 AM [facility] Hematocrit 31.7(L) 35.0 - 45.0 % 11/05/2020 1:40 AM [facility] MCV 95.8 80.7 - 98.3 fL 11/05/2020 1:40 AM [facility] MCH 31.1 26.7 - 34.0 pg 11/05/2020 1:40 AM [facility] MCHC 32.5 30.8 - 35.9 g/dL 11/05/2020 1:40 AM [facility] Platelet Count 174 150 - 400 10? 3 /uL 11/05/2020 1:40 AM [facility] RDW-SD 45.2 36.0 - 50.0 fL 11/05/2020 1:40 AM [facility] RDW-CV 12.9 11.2 - 14.8 % 11/05/2020 1:40 AM [facility] MPV 10.2 9.4 - 12.9 fL 11/05/2020 1:40 AM [facility] nRBC Absolute 0.00 0 10? 3 /uL 11/05/2020 1:40 AM [facility] nRBC Auto 0.0 0 /100 WBC 11/05/2020 1:40 AM [facility] Blood BLOOD SPECIMEN / Unknown Lab Venipuncture / Unknown 11/05/2020 1:23 AM CDT 11/05/2020 1:36 AM CDT Jeremy Frye DO LAB - HEMATOLOGY ORD ERABLES [facility] [address] [place] [address], [facility] [phone] * (ABNORMAL) BASIC METABOLIC PANEL (CALCIUM TOTAL) (11/03/2020 2:11 AM CDT) Only the most recent of2 resultswithin the time period is included. BUN 23 7 - 26 mg/dL 11/03/2020 3:30 AM [facility] Creatinine 0.98(H) 0.56 - 0.96 mg/dL 11/03/2020 3:30 AM [facility] Comment:Confirmed by repeat analysis. Sodium 135(L) 136 - 145 mmol/L 11/03/2020 3:30 AM [facility] Potassium 4.4 3.5 - 4.5 mmol/L 11/03/2020 3:30 AM [facility] Chloride 98 98 - 107 mmol/L 11/03/2020 3:30 AM [facility] CO2 24 22 - 29 mmol/L 11/03/2020 3:30 AM [facility] Glucose 177(H) 70 - 115 mg/dL 11/03/2020 3:30 AM [facility] Calcium 8.6 8.4 - 10.2 mg/dL 11/03/2020 3:30 AM [facility] Anion Gap 17 8 - 18 11/03/2020 3:30 AM [facility] BUN/Creatinine Ratio 23 7 - 23 11/03/2020 3:30 AM [facility] Osmolality Calculated 288 270 - 300 mOsm/kg 11/03/2020 3:30 AM [facility] eGFR by CKD-EPI 66(L) >=90 mL/min/1.7 3 m2 11/03/2020 3:30 AM CDT [facility] Blood BLOOD SPECIMEN / Unknown Lab Venipuncture / Unknown 11/03/2020 2:11 AM CDT 11/03/2020 2:45 AM CDT Jeremy Frye DO LAB - CHEMISTRY [facility] [address] [place] [address], [place] [phone] * BLOOD TYPE VERIFICATION (11/02/2020 9:50 PM CDT) Only the most recent of2 resultswithin the time period is included. ABO Rh O NEG 11/02/2020 10:37 PM CDT [facility] Blood Bank BLOOD SPECIMEN / Unknown Lab Venipuncture / Unknown 11/02/2020 9:50 PM CDT 11/02/2020 9:54 PM CDT Jeremy Frye DO LAB - BLOOD BANK ORD ERABLES [facility] [address] [place] [address], [place] [phone] * TYPE + SCREEN PANEL (11/02/2020 6:51 PM CDT) Only the most recent of2 resultswithin the time period is included. Antibody Screen NEG 8:09 PM CDT [facility] ABO Rh O NEG 11/02/2020 8:09 PM CDT [facility] Blood Bank BLOOD SPECIMEN / Unknown Lab Venipuncture / Unknown 11/02/2020 6:51 PM CDT 11/02/2020 7:29 PM CDT Jeremy Frye DO LAB - BLOOD BANK ORD ERABLES [facility] [address] [place] [address], [place] [phone] * Peripheral Nerve Block (11/02/2020 3:22 PM [...] MD GENERAL ANESTHESIA O RDERABLES * [place] [facility] SURGERY (11/02/2020 2:30 PM CDT) Narrative [facility] RAD[facility] - 11/02/2020 2:32 PM CDT Fluoroscopy was used for this exam in the OR. Please see the Operative report. Jeremy Jessica Frye DO FLUOROSCOPY ORDERABL ES [facility] * ETT LINE PERFORMABLE (11/02/2020 9:46 AM CDT) Narrative Mary Zeng Anes Asst - 11/02/2020 9:46 AM CDT Mary Zeng Anes Asst ? 11/02/2020 ??9:47 AM Endotracheal Tube Placement: ? Patient Location: OR. Intubation Event Date/Time: ??11/02/2020 9:22 AM Procedure: intubation (22090). Procedure Section: ?? Sedation: under general anesthesia. [...] MD GENERAL ANESTHESIA O RDERABLES * PT-INR [facility] (11/02/2020 7:58 AM CDT) PT 12.2 12.1 - 14.8 Seconds 11/02/2020 8:22 AM CDT [facility] INR 0.9 See Comment 11/02/2020 8:22 AM CDT [facility] Comment:The suggested therap eutic range for standard coumadin (warfarin) therapy is an INR of 2.0-3.0. For high-risk patients (Mechanical Mitral Valve Prosthesis, etc.), the suggested prophylactic therapeutic range is an INR of 2.5-3.5. Blood BLOOD SPECIMEN / Unknown Venipuncture / Unknown 11/02/2020 7:58 AM CDT 11/02/2020 8:07 AM CDT José Miguel Quinteros MD LAB - COAGULATION OR DERABLES [facility] [address] [place] [address], [facility] [phone] * (ABNORMAL) CBC W AUTO DIFFERENTIAL (11/02/2020 7:58 AM CDT) WBC 5.5 3.5 - 10.5 10? 3 /uL 11/02/2020 8:21 AM [facility] RBC 4.82 3.80 - 5.20 10? 6 /uL 11/02/2020 8:21 AM [facility] Hemoglobin 14.4 12.0 - 15.6 g/dL 11/02/2020 8:21 AM [facility] Hematocrit 44.0 35.0 - 45.0 % 11/02/2020 8:21 AM [facility] MCV 91.3 80.7 - 98.3 fL 11/02/2020 8:21 AM [facility] MCH 29.9 26.7 - 34.0 pg 11/02/2020 8:21 AM [facility] MCHC 32.7 30.8 - 35.9 g/dL 11/02/2020 8:21 AM [facility] Platelet Count 355 150 - 400 10? 3 /uL 11/02/2020 8:21 AM [facility] RDW-SD 41.1 36.0 - 50.0 fL 11/02/2020 8:21 AM [facility] RDW-CV 12.4 11.2 - 14.8 % 11/02/2020 8:21 AM [facility] MPV 9.2(L) 9.4 - 12.9 fL 11/02/2020 8:21 AM [facility] nRBC Absolute 0.00 0 10? 3 /uL 11/02/2020 8:21 AM [facility] nRBC Auto 0.0 0 /100 WBC 11/02/2020 8:21 AM [facility] Neutrophils % 49.8 35.0 - 70.0 % 11/02/2020 8:21 AM [facility] Lymphocytes % 37.2 20.0 - 43.0 % 11/02/2020 8:21 AM [facility] Monocytes % 7.4 5.0 - 13.0 % 11/02/2020 8:21 AM [facility] Eosinophils % 3.4 0.0 - 6.0 % 11/02/2020 8:21 AM [facility] Basophil % 1.5 0.0 - 2.0 % 11/02/2020 8:21 AM [facility] Neutrophils Absolute 2.7 1.6 - 7.0 10? 3 /uL 11/02/2020 8:21 AM [facility] Lymphocyte Absolute 2.1 1.1 - 3.9 10? 3 /uL 11/02/2020 8:21 AM [facility] Monocytes Absolute 0.41 0.26 - 1.07 10? 3 /uL 11/02/2020 8:21 AM [facility] Eosinophils Absolute 0.19 0.00 - 0.47 10? 3 /uL 11/02/2020 8:21 AM [facility] Basophils Absolute 0.08 0.00 - 0.08 10? 3 /uL 11/02/2020 8:21 AM [facility] Immature Granulocytes % 0.7 0.0 - 1.0 % 11/02/2020 8:21 AM [facility] Immature Granulocytes Absolute 0.04 11/02/2020 8:21 AM [facility] Blood BLOOD SPECIMEN / Unknown Venipuncture / Unknown 11/02/2020 7:58 AM CDT 11/02/2020 8:09 AM T José Miguel Quinteros MD LAB - HEMATOLOGY ORD ERABLES [facility] [address] [place] [address], [facility] [phone] Care Teams Hydrometeorological Technician Relationship Specialty Start Date End Date Marla Riggins MD PCP - General Internal Medicine 08/15/20
--- NOTE | 2024-05-04 13:02 | WPDCARIOSTRE ---
Nuclear Stress Test INDICATIONS Indications: Chest pain PROCEDURE Procedure Performed: Myocardial Perf Spect-Multi Procedure: Patient underwent a lexiscan stress test and immediately was injected with 31.9 mCi of cardiolyte. Multiple tomographic images were obtained. These are of good quality. There is evidence of large size, mild severity septal defect and small size, mild apical perfusion defects with stress imaging. A separate resting images were obtained after patient was injected with 10.5 mCi of cardiolyte. Multiple tomographic images were obtained. These are of good quality. There is evidence of large size, mild severity septal defect and small size, mild apical perfusion defects with rest imaging. CONCLUSION Conclusion: 1. Myocardial perfusion imaging demonstrating fixed large size septal and fixed small size apical perfusion defect suggestive of breast attenuation artifact. 2. No evidence of reversible ischemia. 3. Left ventriculogram demonstrates normal measured ejection fraction of 69% with no wall motion abnormalities. 4. TID score 0.92 is not elevated.
== END 2024-05-04 08:08 | disposition home or self-care (01) ==
LOC: CHSCARD 08:08
PROVIDERS: PCP Internal Medicine; Visit Provider Internal Medicine
DX: R07.9 Chest pain, unspecified (principal); R06.00 Dyspnea, unspecified; R94.31 Abnormal electrocardiogram [ECG] [EKG]
CPT/HCPCS: 78452; 93017; A9502; J2785

== ENCOUNTER 2024-05-21 12:13 | Outpatient (CLI) | payer OTHER, SELFPAY ==
--- NOTE | ~2024-05-21 | CT_ITS ---
CT Scan of the Chest without Contrast: Clinical Indication: Dyspnea Technique: Contiguous sections were acquired throughout the chest without intravenous contrast. Dose reduction technique was used on this scan by utilizing automated exposure control and iterative recon struction technique. The dose-length product (DLP) was 202.79 mGy-cm. COMPARISON: 12/17/2023 Findings: There is no evidence of any significant mediastinal, hilar or axillary lymphadenopathy. Small calcifi ed lymph nodes are present. Coronary artery calcifications are present. There is no evidence of pleural or pericardial effusion. The lungs are clear, aside from a few calcified granulomas. Images through the upper abdomen reveal partially imaged large inferior hepatic lobe cyst.. Impression: No significant abnormalities seen. Reviewed, dictated and finalized at location . TYPESETTER Impression: No significant abnormalities seen.
--- OUTSIDE RECORDS SUMMARY | 2024-05-21 12:18 | XMS_ITS | Referral Summary ---
Author Organization [facility] Address [address] [address] Care Team Providers Care Director Of Media Name Role Phone Marla Riggins MD Primary Care Provider [phone] Source Comments [facility],non-owned Affiliates and Associated Physician Practices is amultiple site organization consisting of ambulatory clinics and hospital sitesin [place], [place], [place] and [place]. This disclosure is being madepursuant to the Care Everywhere program and may not contain all information available regarding this patient. Last updated 17.[facility] Allergies Active Allergy Reactions Criticality Noted [...] Immunizations Name Administration Dates Next Due Covid [employer] primary monoval ent 12+ yr 0.3mL Purple [...] 84 11/05/2020 7:51 AM CDT Temperature 36.6 C (97.8 F) 11/05/2020 7:51 AM CDT Respiratory Rate 20 11/05/2020 7:51 AM CDT [...] PT exercises Medical Devices Implanted Type Area Lathe Sander Device Identifier Shelf Expiration Date Model / Serial / Lot Screw 6.5mm 7.9mm 2.9mm 85mm Ft Rvrs Cut Implanted:Qty: 1 on 11/02/2020 by Jeremy Frye DO at [facility] Right: Ankle [employer] [id number] / / Screw 6.5mm 7.9mm 2.9mm 70mm Ft Rvrs Cut Implanted:Qty: 1 on 11/02/2020 by Jeremy Frye DO at [facility] Right: Ankle Synthes [facility] 208.470 / / Explanted Type Area Lathe Sander Device Identifier Shelf Expiration Date Model / Serial / Lot Wire K .062in 6in Fx 2 Troc Explanted:Qty: 2 on 11/02/2020 by Jeremy Frye DO at [facility] Right: Foot [employer] 07/25/2024 [id number] / / [id number] Screw 6.5mm 7.9mm 2.9mm 90mm Ft Rvrs Cut Explanted:Qty: 1 on 11/02/2020 by Jeremy Frye DO at [facility] Right: Ankle Synthes [facility] 208.474 / / Procedures Procedure Name Priority Date/Time Associated Diagnosis Comments BASIC METABOLIC PANEL (CALCIUM TOTAL) AM Draw 11/03/2020 2:11 AM CDT Arthritis of right ankle from Last 3 Months or Most Recently Relevant to Health Maintenance Results * (ABNORMAL) BASIC METABOLIC PANEL (CALCIUM TOTAL) (11/03/2020 2:11 AM CDT) BUN 23 7 - 26 mg/dL 11/03/2020 3:30 AM [facility] Creatinine 0.98(H) 0.56 - 0.96 mg/dL 11/03/2020 3:30 AM [facility] Comment:Confirmed by repeat analysis. Sodium 135(L) 136 - 145 mmol/L 11/03/2020 3:30 AM [facility] Potassium 4.4 3.5 - 4.5 mmol/L 11/03/2020 3:30 AM [facility] Chloride 98 98 - 107 mmol/L 11/03/2020 3:30 AM [facility] CO2 24 22 - 29 mmol/L 11/03/2020 3:30 AM [facility] Glucose 177(H) 70 - 115 mg/dL 11/03/2020 3:30 AM [facility] Calcium 8.6 8.4 - 10.2 mg/dL 11/03/2020 3:30 AM [facility] Anion Gap 17 8 - 18 11/03/2020 3:30 AM [facility] BUN/Creatinine Ratio 23 7 - 23 11/03/2020 3:30 AM CDT [facility] Osmolality Calculated 288 270 - 300 mOsm/kg 11/03/2020 3:30 AM CDT [facility] eGFR by CKD-EPI 66(L) >=90 mL/min/1.7 3 m2 11/03/2020 3:30 AM CDT [facility] Blood BLOOD SPECIMEN / Unknown Lab Venipuncture / Unknown 11/03/2020 2:11 AM CDT 11/03/2020 2:45 AM CDT Jeremy Frye DO LAB - CHEMISTRY OR[facility] [address] [place] [address], [facility] [phone] from Last 3 Months or Most Recently Relevant to Health Maintenance Advance Directives * Full Code (Latest Code Status on File) Date Activated Date Inactivated Comments 11/02/2020 2:20 PM 11/05/2020 12:47 PM * Full Code Date Activated Date Inactivated Comments 11/02/2020 7:17 AM 11/02/2020 2:20 PM * Full Code Date Activated Date Inactivated Comments 11/02/2020 7:17 AM 11/02/2020 7:17 AM Care Teams Director Of Media Relationship Specialty Start Date End Date Marla Riggins MD PCP - General Internal Medicine 08/15/20
--- OUTSIDE RECORDS SUMMARY | 2024-05-21 12:18 | XMS_ITS | Clinical Summary ---
Author Organization [facility] [email or web address] Address [address] [place] [address] Care Team Providers Care Tube Backer Name Role Phone Marla Riggins MD Primary Care Provider [phone] Source Comments [facility] [email or web address],non-owned Affiliates and Associated Physician Practices is amultiple site organization consisting of ambulatory clinics and hospital sitesin [place], [place], [place] and [place]. This disclosure is being madepursuant to the [...] Immunizations Name Administration Dates Next Due Covid [employer] primary monoval ent 12+ yr 0.3mL Purple [...] PT exercises Medical Devices Implanted Type Area Phlebotomy Services Representative Device Identifier Shelf Expiration Date Model / Serial / Lot Screw 6.5mm 7.9mm 2.9mm 85mm Ft Rvrs Cut Implanted:Qty: 1 on 11/02/2020 by Jeremy Frye DO at [facility] Right: Ankle Synthes [facility] [id number] / / Screw 6.5mm 7.9mm 2.9mm 70mm Ft Rvrs Cut Implanted:Qty: 1 on 11/02/2020 by Jeremy Frye DO at [facility] Right: Ankle [employer] 208.470 / / Explanted Type Area Phlebotomy Services Representative Device Identifier Shelf Expiration Date Model / Serial / Lot Wire K .062in 6in Fx 2 Troc Explanted:Qty: 2 on 11/02/2020 by Jeremy Frye DO at [facility] Right: Foot [employer] 07/25/2024 [id number] / / [id number] Screw 6.5mm 7.9mm 2.9mm 90mm Ft Rvrs Cut Explanted:Qty: 1 on 11/02/2020 by Jeremy Frye DO at [facility] Right: Ankle [employer] 208.474 / / Procedures Procedure Name Priority Date/Time Associated Diagnosis Comments BASIC METABOLIC PANEL (CALCIUM TOTAL) AM Draw 11/03/2020 2:11 AM CDT Arthritis of right ankle from Last 3 Months or Most Recently Relevant to Health Maintenance Results * (ABNORMAL) BASIC METABOLIC PANEL (CALCIUM TOTAL) (11/03/2020 2:11 AM CDT) BUN 23 7 - 26 mg/dL 11/03/2020 3:30 AM [facility] Creatinine 0.98(H) 0.56 - 0.96 mg/dL 11/03/2020 3:30 AM [facility] Comment:Confirmed by repeat analysis. Sodium 135(L) 136 - 145 mmol/L 11/03/2020 3:30 AM [facility] Potassium 4.4 3.5 - 4.5 mmol/L 11/03/2020 3:30 AM [facility] Chloride 98 98 - 107 mmol/L 11/03/2020 3:30 AM [facility] CO2 24 22 - 29 mmol/L 11/03/2020 3:30 AM [facility] Glucose 177(H) 70 - 115 mg/dL 11/03/2020 3:30 AM [facility] Calcium 8.6 8.4 - 10.2 mg/dL 11/03/2020 3:30 AM [facility] Anion Gap 17 8 - 18 11/03/2020 3:30 AM [facility] BUN/Creatinine Ratio 23 7 - 23 11/03/2020 3:30 AM [facility] Osmolality Calculated 288 270 - 300 mOsm/kg 11/03/2020 3:30 AM [facility] eGFR by CKD-EPI 66(L) >=90 mL/min/1.7 3 m2 11/03/2020 3:30 AM [facility] Blood BLOOD SPECIMEN / Unknown Lab Venipuncture / Unknown 11/03/2020 2:11 AM CDT 11/03/2020 2:45 AM T Jeremy Frye DO LAB - CHEMISTRY ORDE [facility] [address] [place] [address], [facility] [phone] from Last 3 Months or Most Recently Relevant to Health Maintenance Advance Directives * Full Code (Latest Code Status on File) Date Activated Date Inactivated Comments 11/02/2020 2:20 PM 11/05/2020 12:47 PM * Full Code Date Activated Date Inactivated Comments 11/02/2020 7:17 AM 11/02/2020 2:20 PM * Full Code Date Activated Date Inactivated Comments 11/02/2020 7:17 AM 11/02/2020 7:17 AM Care Teams Tube Backer Relationship Specialty Start Date End Date Marla Riggins MD PCP - General Internal Medicine 08/15/20
--- OUTSIDE RECORDS SUMMARY | 2024-05-21 12:18 | XMS_ITS | Patient Health Summary ---
Author Organization [facility] Address [address] [address] Care Team Providers Care Tire Technician Name Role Phone Marla Riggins MD Primary Care Provider Note from [facility],non-owned Affiliates and Associated Physician Practices is amultiple site organization consisting of ambulatory clinics and hospital sitesin [place], [place], [place] and [place]. This disclosure is being madepursuant to the Care Everywhere program and may not contain all information available regarding this patient. Last updated 17.[facility] Allergies * Penicillins(Rash) -Medium Criticality Medications * [...] PM CDT Medical Devices Implanted Type Area Editor Trade Journal Device Identifier Shelf Expiration Date Model / Serial / Lot Screw 6.5mm 7.9mm 2.9mm 85mm Ft Rvrs Cut Implanted:Qty: 1 on 11/02/2020 by Jeremy Frye DO at [facility] Right: Ankle [employer] [id number] / / Screw 6.5mm 7.9mm 2.9mm 70mm Ft Rvrs Cut Implanted:Qty: 1 on 11/02/2020 by Jeremy Frye DO at [facility] Right: Ankle [employer] 208.470 / / Explanted Type Area Editor Trade Journal Device Identifier Shelf Expiration Date Model / Serial / Lot Wire K .062in 6in Fx 2 Troc Explanted:Qty: 2 on 11/02/2020 by Jeremy Frye DO at [facility] Right: Foot [employer] 07/25/2024 [id number] / / [id number] Screw 6.5mm 7.9mm 2.9mm 90mm Ft Rvrs Cut Explanted:Qty: 1 on 11/02/2020 by Jeremy Frye DO at [facility] Right: Ankle [employer] [...] was electronically signed by FAUSTINO VALERO MD on 01/31/2021 8:59 AM . Narrative 01/31/2021 8:59 AM CDT Exam: XR ANKLE RIGHT 3VW History: M25.571: [...] CBC W/O DIFFERENTIAL (11/05/2020 1:23 AM CDT) Only the most recent of3 resultswithin the time period is included. WBC 10.9(H) 3.5 - 10.5 10 3/uL 11/05/2020 1:40 AM [facility] RBC 3.31(L) 3.80 - 5.20 10 6/uL 11/05/2020 1:40 AM [facility] Hemoglobin 10.3(L) 12.0 - 15.6 g/dL 11/05/2020 1:40 AM [facility] Hematocrit 31.7(L) 35.0 - 45.0 % 11/05/2020 1:40 AM [facility] MCV 95.8 80.7 - 98.3 fL 11/05/2020 1:40 AM [facility] MCH 31.1 26.7 - 34.0 pg 11/05/2020 1:40 AM [facility] MCHC 32.5 30.8 - 35.9 g/dL 11/05/2020 1:40 AM [facility] Platelet Count 174 150 - 400 10 3/uL 11/05/2020 1:40 AM [facility] RDW-SD 45.2 36.0 - 50.0 fL 11/05/2020 1:40 AM [facility] RDW-CV 12.9 11.2 - 14.8 % 11/05/2020 1:40 AM [facility] MPV 10.2 9.4 - 12.9 fL 11/05/2020 1:40 AM [facility] nRBC Absolute 0.00 0 10 3/uL 11/05/2020 1:40 AM [facility] nRBC Auto 0.0 0 /100 WBC 11/05/2020 1:40 AM [facility] Blood BLOOD SPECIMEN / Unknown Lab Venipuncture / Unknown 11/05/2020 1:23 AM CDT 11/05/2020 1:36 AM CDT Jeremy Frye DO LAB - HEMATOLOGY ORD ERABLES [facility] [address] [place] [address], [facility] [phone] * (ABNORMAL) BASIC METABOLIC PANEL (CALCIUM TOTAL) (11/03/2020 2:11 AM CDT) Only the most recent of2 resultswithin the time period is included. BUN 23 7 - 26 mg/dL 11/03/2020 3:30 AM [facility] Creatinine 0.98(H) 0.56 - 0.96 mg/dL 11/03/2020 3:30 AM [facility] Comment:Confirmed by repeat analysis. Sodium 135(L) 136 - 145 mmol/L 11/03/2020 3:30 AM [facility] Potassium 4.4 3.5 - 4.5 mmol/L 11/03/2020 3:30 AM [facility] Chloride 98 98 - 107 mmol/L 11/03/2020 3:30 AM [facility] CO2 24 22 - 29 mmol/L 11/03/2020 3:30 AM [facility] Glucose 177(H) 70 - 115 mg/dL 11/03/2020 3:30 AM [facility] Calcium 8.6 8.4 - 10.2 mg/dL 11/03/2020 3:30 AM [facility] Anion Gap 17 8 - 18 11/03/2020 3:30 AM [facility] BUN/Creatinine Ratio 23 7 - 23 11/03/2020 3:30 AM [facility] Osmolality Calculated 288 270 - 300 mOsm/kg 11/03/2020 3:30 AM [facility] eGFR by CKD-EPI 66(L) >=90 mL/min/1.7 3 m2 11/03/2020 3:30 AM [facility] Blood BLOOD SPECIMEN / Unknown Lab Venipuncture / Unknown 11/03/2020 2:11 AM CDT 11/03/2020 2:45 AM CDT Jeremy Frye DO LAB - CHEMISTRY KATIA MATHEW [facility] [address] [place] [address], [place] [phone] * BLOOD TYPE VERIFICATION (11/02/2020 9:50 PM CDT) Only the most recent of2 resultswithin the time period is included. ABO Rh O NEG 11/02/2020 10:37 PM CDT [facility] Blood Bank BLOOD SPECIMEN / Unknown Lab Venipuncture / Unknown 11/02/2020 9:50 PM CDT 11/02/2020 9:54 PM CDT Jeremy Frye DO LAB - BLOOD BANK ORD KULWINDER Performing Organization Address [facility]/ZIP Co de Phone Number [facility] [address] [place] [address], [place] [phone] * TYPE + SCREEN PANEL (11/02/2020 6:51 PM CDT) Only the most recent of2 resultswithin the time period is included. Antibody Screen NEG 8:09 PM CDT [facility] ABO Rh O NEG 11/02/2020 8:09 PM CDT [facility] Blood Bank BLOOD SPECIMEN / Unknown Lab Venipuncture / Unknown 11/02/2020 6:51 PM CDT 11/02/2020 7:29 PM CDT Jeremy Frye DO LAB - BLOOD BANK ORD KULWINDER Performing Organization Address [facility]/ZIP Co de Phone Number [facility] [address] [place] [address], [place] [phone] * Peripheral Nerve Block (11/02/2020 3:22 PM CDT) Narrative Dwaine Chen MD - 11/02/2020 3:22 PM CDT Dwaine Chen MD 11/02/2020 3:25 PM Peripheral Nerve Block Procedure: Peripheral Nerve Block [...] MD GENERAL ANESTHESIA O RDERABLES * FL DIAMANTE SURGERY (11/02/2020 2:30 PM CDT) Narrative [facility] RAD[facility] - 11/02/2020 2:32 PM CDT Fluoroscopy was used for this exam in the OR. Please see the Operative report. Jeremy Frye DO FLUOROSCOPY ORDERABL ES [facility] * ETT LINE PERFORMABLE (11/02/2020 9:46 AM CDT) Narrative Mary Zeng Anes Asst - 11/02/2020 9:46 AM CDT Mary Zeng Anes Asst 11/02/2020 9:47 AM Endotracheal Tube Placement: Patient Location: OR. Intubation Event Date/Time: 11/02/2020 9:22 AM Procedure: intubation ([id number]). Procedure Section: Sedation: under general anesthesia. Indications [...] MD GENERAL ANESTHESIA O RDERABLES * PT-INR [facility] (11/02/2020 7:58 AM CDT) PT 12.2 12.1 - 14.8 Seconds 11/02/2020 8:22 AM CDT [facility] INR 0.9 See Comment 11/02/2020 8:22 AM CDT [facility] Comment:The suggested therap eutic range for standard coumadin (warfarin) therapy is an INR of 2.0-3.0. For high-risk patients (Mechanical Mitral Valve Prosthesis, etc.), the suggested prophylactic therapeutic range is an INR of 2.5-3.5. Blood BLOOD SPECIMEN / Unknown Venipuncture / Unknown 11/02/2020 7:58 AM CDT 11/02/2020 8:07 AM CDT José Miguel Quinteros MD LAB - COAGULATION OR DERABLES [facility] [address] [place] [address], [facility] [phone] * (ABNORMAL) CBC W AUTO DIFFERENTIAL (11/02/2020 7:58 AM CDT) WBC 5.5 3.5 - 10.5 10 3/uL 11/02/2020 8:21 AM [facility] RBC 4.82 3.80 - 5.20 10 6/uL 11/02/2020 8:21 AM [facility] Hemoglobin 14.4 12.0 - 15.6 g/dL 11/02/2020 8:21 AM [facility] Hematocrit 44.0 35.0 - 45.0 % 11/02/2020 8:21 AM [facility] MCV 91.3 80.7 - 98.3 fL 11/02/2020 8:21 AM [facility] MCH 29.9 26.7 - 34.0 pg 11/02/2020 8:21 AM [facility] MCHC 32.7 30.8 - 35.9 g/dL 11/02/2020 8:21 AM [facility] Platelet Count 355 150 - 400 10 3/uL 11/02/2020 8:21 AM [facility] RDW-SD 41.1 36.0 - 50.0 fL 11/02/2020 8:21 AM [facility] RDW-CV 12.4 11.2 - 14.8 % 11/02/2020 8:21 AM [facility] MPV 9.2(L) 9.4 - 12.9 fL 11/02/2020 8:21 AM [facility] nRBC Absolute 0.00 0 10 3/uL 11/02/2020 8:21 AM [facility] nRBC Auto 0.0 0 /100 WBC 11/02/2020 8:21 AM [facility] Neutrophils % 49.8 35.0 - 70.0 % 11/02/2020 8:21 AM [facility] Lymphocytes % 37.2 20.0 - 43.0 % 11/02/2020 8:21 AM [facility] Monocytes % 7.4 5.0 - 13.0 % 11/02/2020 8:21 AM [facility] Eosinophils % 3.4 0.0 - 6.0 % 11/02/2020 8:21 AM [facility] Basophil % 1.5 0.0 - 2.0 % 11/02/2020 8:21 AM [facility] Neutrophils Absolute 2.7 1.6 - 7.0 10 3/uL 11/02/2020 8:21 AM [facility] Lymphocyte Absolute 2.1 1.1 - 3.9 10 3/uL 11/02/2020 8:21 AM [facility] Monocytes Absolute 0.41 0.26 - 1.07 10 3/uL 11/02/2020 8:21 AM [facility] Eosinophils Absolute 0.19 0.00 - 0.47 10 3/uL 11/02/2020 8:21 AM [facility] Basophils Absolute 0.08 0.00 - 0.08 10 3/uL 11/02/2020 8:21 AM [facility] Immature Granulocytes % 0.7 0.0 - 1.0 % 11/02/2020 8:21 AM [facility] Immature Granulocytes Absolute 0.04 11/02/2020 8:21 AM [facility] Blood BLOOD SPECIMEN / Unknown Venipuncture / Unknown 11/02/2020 7:58 AM CDT 11/02/2020 8:09 AM [facility] José Miguel Quinteros MD LAB - HEMATOLOGY ORD ERABLES [facility] [address] [place] [address], [facility] [phone] Care Teams Tire Technician Relationship Specialty Start Date End Date Marla Riggins MD PCP - General Internal Medicine 08/15/20
--- OUTSIDE RECORDS SUMMARY | 2024-05-21 12:18 | XMS_ITS | Clinical Summary ---
Author Organization [facility] Address [address], [facility] [address] [place] [address] Phone Care Team Providers Care Seed Tester Name Role Phone Marla Riggins MD Primary Care Provider [phone] Allergies Active Allergy Reactions Criticality Noted Date [...] 87 07/02/2018 8:58 AM CDT Temperature 35.8 C (96.5 F) 08/30/2016 3:17 PM CDT Respiratory Rate 18 08/30/2016 3:17 PM CDT [...] Colorectal Cancer Screening 09/27/2021 Influenza Immunization (#1) 12/01/202312/31, 01/22/2017 SARS-COV-2 Immunization ( season) 2023 03/16/2021, [...] Recently Relevant to Health Maintenance Results * HM COLONOSCOPY (09/27/2016) Marla Riggins MD PROCEDURE/MINOR SURGICAL ORDE QUINCY Final Result from Last 3 Months or Most Recently Relevant to Health Maintenance Insurance [facility] Member Subscriber Plan / Payer ( fective 2017-Present) Name:Taylor Garcia Relation to Subscriber:Self Name:Taylor Garcia Payer ID:[id number] Type:PPO Address: [address] Care Teams Seed Tester Relationship Specialty Start Date End Date Marla Riggins MD [address] [place] [address] PCP - General Internal Medicine 08/17/16
== END 2024-05-21 12:14 | disposition home or self-care (01) ==
LOC: CHSIMG 12:16
PROVIDERS: PCP Internal Medicine; Visit Provider Internal Medicine
DX: R06.00 Dyspnea, unspecified (principal)
CPT/HCPCS: 71250

== ENCOUNTER 2025-03-02 12:24 | Outpatient (CLI) | payer BC, SELFPAY ==
--- NOTE | ~2025-03-02 | MM_ITS ---
EXAMINATION: MM screening li BI w li HISTORY: Screening. TECHNIQUE: Craniocaudal and mediolateral oblique 3-D tomosynthesis images were obtained and synthetic 2-D images were generated. CAD analysis was submitted and interpreted. COMPARISON: 2023, 2022, and 2021 BREAST PARENCHYMAL COMPOSITION: Not Dense: There are scattered areas of fibroglandular FINDINGS: No suspicious masses are seen. There are no suspicious calcifications. No unexplained architectural distortion is seen. There are no skin or nipple abnormalities identified. There is no adenopathy seen on the images submitted. IMPRESSION: No mammographic evidence to suggest malignancy is seen. The patient may return to screening mammography as per ACR guidelines. BI-RADS 1 - Negative. Reviewed, dictated and finalized at location B. ECT MANAGER SENIOR
== END 2025-03-02 12:25 | disposition home or self-care (01) ==
LOC: MICIMG 12:24
PROVIDERS: PCP Internal Medicine; Visit Provider Obstetrics & Gynecology
DX: Z12.31 Encounter for screening mammogram for malignant neoplasm of breast (principal)
CPT/HCPCS: 77063; 77067